=== PATIENT | female | born 1995 | race Caucasian/White ===

== ENCOUNTER 2017-11-22 01:50 | Outpatient (CLI) | payer MEDICAID, SELFPAY ==
[2017-11-22 02:15] VITALS: BMI 25.1
--- NOTE | 2017-11-22 04:03 | OB.TRI.NOTE ---
History of Present Illness Date of Service: 11/22/17 Was patient seen by the physician?: No Reason For Visit: R/O LABOR Date of Service: 11/22/17 Gestational age: 36.2 Home Medications Medication Instructions Recorded Venlafaxine HCl [Venlafaxine HCl 75 mg PO DAILY 06/25/17 ER] Pnv 11-Iron Fum-Folic Acid-Om3 1 each PO DAILY 11/22/17 [Virt-Emmanuel Dha Softgel] Allergies No Known Allergies Allergy (Verified 06/24/17 22:56) NST - FHR Rate Baby A Baseline: 145 Variability:: Moderate Accelerations:: 15 x 15 Decelerations:: None NST Reactive:: Yes FHR Category:: Category I Uterine Activity:: irregular Impression/Plan 22yo @ 36.2 wks, False labor dc home
== END 2017-11-22 04:10 | disposition home or self-care (01) ==
LOC: WPOUT 02:01 → WP 02:02
PROVIDERS: Visit Provider Obstetrics & Gynecology
DX: O47.03 False labor before 37 completed weeks of gestation, third trimester (principal); Z3A.36 36 weeks gestation of pregnancy
CPT/HCPCS: 59025; 59050; 99218; G0378

== ENCOUNTER 2017-11-29 16:00 | Inpatient (IN) | payer MEDICAID, SELFPAY ==
[2017-11-29 15:11] VITALS: BMI 25.2
[2017-11-29] MEDS: Lactated Ringers 1,000 ML 50 ML IV ×2 (16:15→20:28)
[2017-11-29 16:33] LABS: Mean Corp Hgb Conc 31.4 g/gl (32-36); Mean Corpuscular Hgb 28.1 pg (27.0-32.0); Mean Corpuscular Volume 89.3 fL (81-99); Mean Platelet Vol. 11.9 fl (6.2-12.0); Platelet Count 168 K/mm3 (150-450); RBC Distribution Width CV 14.3 % (11.6-14.6); RBC Distribution Width SD 46.6 fl (35.1-43.9); Red Blood Count 3.92 M/mm3 (4.2-5.4); White Blood Count 12.2 K/mm3 (4.4-11.0)
[2017-11-29 16:37] LABS: ROM Internal Control Test YES-OK TO RESULT pt. (Internal QC); ROM Patient Test Negative (Negative)
[2017-11-29 16:47] LABS: Scan Indicated on CBC? Y/N NO
--- NOTE | 2017-11-29 17:52 | PCM.HP.OB ---
- Problem List (1) History of depression Status: Chronic History Date of Admission: 11/29/17 Final BHARTI: 12/18/17 Final BHARTI Source: LMP Gestational age: 37 Weeks and 2 Days History of this : Uncomplicated antepartum course. Patient is a with hx of an ectopic 01/2017 that was treated and resolved without complication. Patient reports her contractions started over last night and now are every 5 minutes apart. Patient denies vaginal bleeding or leaking of amniotic fluid. Pertinent Past Medical History: Hx of depression - takes Effexor 75mg PO daily Otherwise noncontributory Allergies No Known Allergies Allergy (Verified 11/29/17 16:36) Current Medications Acetaminophen (Tylenol) 325 - 650 mg PO Q4H PRN PRN PRN Reason: PAIN OR FEVER >100.4F Al Hydroxide/Mg Hydroxide (Mylanta Ii) 15 - 30 ml PO Q4H PRN PRN PRN Reason: INDIGESTION Citric Acid/Sodium Citrate (Bicitra) 30 ml PO UD PRN Penicillin G Potassium/Dextrose (Penicillin G Potassium) 3 mu in 50 mls @ 100 mls/hr IV Q4H TED Lactated Ringer's () 1,000 mls @ 50 mls/hr IV .Q20H [facility] Last Admin: 11/29/17 16:15 Dose: 50 mls/hr Nalbuphine HCl (Nubain) 5 - 10 mg IV Q3H PRN PRN PRN Reason: PAIN (4-10/10) Ondansetron HCl (Zofran) 4 mg IV Q8H PRN PRN PRN Reason: NAUSEA Promethazine HCl (Phenergan (Ll)) 6.25 - 12.5 mg IV Q4H PRN PRN; Protocol PRN Reason: IF NAUSEA PERSISTS Sodium Chloride () 5 - 15 ml IV UD [facility] Last Admin: 11/29/17 16:29 Dose: Not Given Smoking Status: Never smoker Alcohol: None Drug Use: none Number of Fetus(es): 1 Review of Systems Constitutional: Denies: Chills, Fever, Weight Change HEENT: Denies: Head Aches, Sinus Congestion, Sinus Drainage Cardiovascular: Denies: Chest Pain, Palpitations Respiratory: Denies: Cough, Shortness of breath at rest, Sputum production Gastrointestinal: Denies: Abdominal Pain, Nausea, Vomiting Genitourinary: Denies: Dysuria Musculoskeletal: Denies: Joint Pain, Joint Tenderness Skin: Denies: Rash, Wounds Neurological: Denies: Numbness, Tingling, Focal weakness Psychiatric: Denies: Anxiety, Depression, Homicidal Ideations, Suicidal Ideations Hematologic/ Lymphatic: Denies: Easy Bruising, Easy Bleeding Physical Exam Vitals: See nurse assessment for vital signs FHT baseline 140, moderate variability, + accels, no decels Ctx q 2-5 minutes, palpate mild to moderately strong General: Alert, Oriented x3, No apparent distress Cardiovascular: Regular rate, Regular Rhythm Lungs: Normal air movement Abdomen: Bowel Sounds Present, Gravid, Appropriate for Gestational Age Extremities:: No edema Estimated gestational size: Appropriate for gestational size Presentation: Cephalic Cervix Dilation (cm): 5 Station: -1 Effacement (%): 90 Assessment/Plan A: 22 y/o @ 37.2 weeks, Active Labor, Category I FHT P: 1) Admit patient, expectant management at this time 2) Start abx for GBS prophylaxis per protocol 3) Encourage movement, ambulation and PO fluids 4) In minimal to no cervical change by initiation of 2nd abx dose, anticipate offering AROM to patient to help augment labor Monica Anderson CNM
--- NOTE | 2017-11-29 18:04 | HP.PCM_ITS ---
- Problem List (1) History of depression Status: Chronic History Date of Admission: 11/29/17 Final BHARTI: 12/18/17 Final BHARTI Source: LMP Gestational age: 37 Weeks and 2 Days History of this : Uncomplicated antepartum course. Patient is a with hx of an ectopic 01/2017 that was treated and resolved without complication. Patient reports her contractions started over last night and now are every 5 minutes apart. Patient denies vaginal bleeding or leaking of amniotic fluid. Pertinent Past Medical History: Hx of depression - takes Effexor 75mg PO daily Otherwise noncontributory Allergies No Known Allergies Allergy (Verified 11/29/17 16:36) Current Medications Acetaminophen (Tylenol) 325 - 650 mg PO Q4H PRN PRN PRN Reason: PAIN OR FEVER >100.4F Al Hydroxide/Mg Hydroxide (Mylanta Ii) 15 - 30 ml PO Q4H PRN PRN PRN Reason: INDIGESTION Citric Acid/Sodium Citrate (Bicitra) 30 ml PO UD PRN Penicillin G Potassium/Dextrose (Penicillin G Potassium) 3 mu in 50 mls @ 100 mls/hr IV Q4H TED Lactated Ringer's () 1,000 mls @ 50 mls/hr IV .Q20H [facility] Last Admin: 11/29/17 16:15 Dose: 50 mls/hr Nalbuphine HCl (Nubain) 5 - 10 mg IV Q3H PRN PRN PRN Reason: PAIN (4-10/10) Ondansetron HCl (Zofran) 4 mg IV Q8H PRN PRN PRN Reason: NAUSEA Promethazine HCl (Phenergan (Ll)) 6.25 - 12.5 mg IV Q4H PRN PRN; Protocol PRN Reason: IF NAUSEA PERSISTS Sodium Chloride () 5 - 15 ml IV UD [facility] Last Admin: 11/29/17 16:29 Dose: Not Given Smoking Status: Never smoker Alcohol: None Drug Use: none Number of Fetus(es): 1 Review of Systems Constitutional: Denies: Chills, Fever, Weight Change HEENT: Denies: Head Aches, Sinus Congestion, Sinus Drainage Cardiovascular: Denies: Chest Pain, Palpitations Respiratory: Denies: Cough, Shortness of breath at rest, Sputum production Gastrointestinal: Denies: Abdominal Pain, Nausea, Vomiting Genitourinary: Denies: Dysuria Musculoskeletal: Denies: Joint Pain, Joint Tenderness Skin: Denies: Rash, Wounds Neurological: Denies: Numbness, Tingling, Focal weakness Psychiatric: Denies: Anxiety, Depression, Homicidal Ideations, Suicidal Ideations Hematologic/ Lymphatic: Denies: Easy Bruising, Easy Bleeding Physical Exam Vitals: See nurse assessment for vital signs FHT baseline 140, moderate variability, + accels, no decels Ctx q 2-5 minutes, palpate mild to moderately strong General: Alert, Oriented x3, No apparent distress Cardiovascular: Regular rate, Regular Rhythm Lungs: Normal air movement Abdomen: Bowel Sounds Present, Gravid, Appropriate for Gestational Age Extremities:: No edema Estimated gestational size: Appropriate for gestational size Presentation: Cephalic Cervix Dilation (cm): 5 Station: -1 Effacement (%): 90 Assessment/Plan A: 22 y/o @ 37.2 weeks, Active Labor, Category I FHT P: 1) Admit patient, expectant management at this time 2) Start abx for GBS prophylaxis per protocol 3) Encourage movement, ambulation and PO fluids 4) In minimal to no cervical change by initiation of 2nd abx dose, anticipate offering AROM to patient to help augment labor Monica Anderson CNM
[2017-11-29] MEDS: Nalbuphine 10 MG/ML Ampul IV (20:46)
[2017-11-30] MEDS: Oxytocin 30 units/NS 500 ml 30 UNITS/500 ML IV.SOLN 334 UNITS IV (00:20)
[2017-11-30] MEDS: Methylergonovine 0.2 MG/ML Ampul IM (00:23)
[2017-11-30] MEDS: Oxytocin 30 units/NS 500 ml 30 UNITS/500 ML IV.SOLN 167 UNITS IV (00:30)
--- NOTE | 2017-11-30 00:35 | PCM.OB.VAG ---
Vaginal Delivery Maternal Presentation: Active Labor Amniotic Membrane Rupture Type: Artificial Amniotic Fluid Description: Clear Final BHARTI: 12/18/17 Gestational age: 37 Weeks and 3 Days Date of Procedure: 11/30/17 Pre-Operative Diagnosis: labor Post-Operative Diagnosis: same Surgery/ Procedure Performed: Spontaneous Vaginal Delivery Type of Anesthesia: Local with 1% lidocaine - 15 cc Description of Procedure: of vigorous female infant KRISTINA over small second degree perineal laceration. Remainder of delivered w/ maternal pushing and gentle traction only. Spont. delivery of placenta intact w/ 3 vessel cord. Cervix and vagina intact. mild atony. Responded to pitocin, uterine massage and methergine x 1. Second degree laceration repaired w/ 3-0 vicryl rapide suture. Vaginal sweep completed Presentation: KRISTINA Placental Delivery Description: Spontaneous Placenta Disposition: [facility] Cord Vessel Description: 3 Vessels Cord Entanglement: None Drain: - - none Estimated Blood Loss: 500 A gender: Male (1 minute): 8 (5 minute): 9 Episiotomy Description: None Laceration: 1st degree - perineal Medications given after delivery: IV Pitocin Complications: None
[2017-11-30] MEDS: Acetaminophen 500 MG Tablet 1000 MG PO (01:14)
[2017-11-30] MEDS: Naproxen 250 MG Tablet PO ×3 (02:17→21:17)
[2017-11-30 08:30] VITALS: PULSE 102; RESP 16
[2017-11-30 08:36] VITALS: BP 122/59; PULSE 102; RESP 16; TEMP 36.4; O2SAT 96
[2017-11-30 11:41] VITALS: BP 128/64; PULSE 104; RESP 16; TEMP 36.8; O2SAT 96
[2017-11-30] MEDS: Venlafaxine XR 75 MG Capsule PO (13:43)
--- NOTE | 2017-11-30 14:47 | NURSING ---
rhogam verified by bryan
[2017-11-30 15:44] VITALS: BP 118/57; PULSE 120; RESP 18; TEMP 36.9; O2SAT 97
--- NOTE | 2017-11-30 18:42 | DCINST_ITS ---
Discharge Diet: No Restrictions Discharge Activity: Return to Normal Activity, May not drive while taking narcotic pain medications., May Shower May resume sexual activity in: 4-6 weeks Additional Activity Instructions:: Nothing in the vagina for 4-6 weeks. You may return to work/school in 6 weeks. Call your doctor if your incision/area has: Continuous Slow Oozing, Sudden Increased Bleeding, Increased Pain/ Swelling, Increased Redness, Foul Smelling Discharge Additional Instructions: If you experience any of the following, contact your healthcare provider. * Bleeding that soaks a pad every hour for 2 hours * Fever 100.4 or higher * Unrelieved incision or abdominal pain * Swelling, redness, discharge or bleeding from your incision or episiotomy site * Your incision begins to separate * Problems urinating (including inability to urinate or burning while urinating) . * Visual changes * Severe headache * Flu-like symptoms * Pain or redness in one of both of your breasts * Pain, warmth, tenderness or swelling in your legs, especially the calf area * Frequent nausea and vomiting * Symptoms of depression or anxiety If you experience any of the following, call 911 or go to the nearest Emergency Room. * Chest pain * Problems breathing * Seizure activity * Partial or complete paralysis of a body part, slurred speech, weakness or drooping of the face, or a sudden inability to walk or hold your balance Allergies/Adverse Reactions: Allergies No Known Allergies Allergy (Verified 11/29/17 16:36) Medications to take at Discharge Venlafaxine HCl [Venlafaxine HCl ER] 75 mg PO DAILY 06/25/17 Pnv 11-Iron Fum-Folic Acid-Om3 [Virt-Emmanuel Dha Softgel] 1 each PO DAILY 11/22/17 Docusate Sodium [Colace] 100 mg PO BID PRN PRN #60 cap 11/30/17 Ibuprofen [Motrin] 600 mg PO Q6H PRN #60 tab 11/30/17 The following prescriptions were given: Docusate Sodium [Colace] 100 mg PO BID PRN PRN #60 cap PRN Reason: Constipation Ibuprofen [Motrin] 600 mg PO Q6H PRN #60 tab PRN Reason: Pain Orders to be completed after discharge: Electric breast pump Location: None Selected Please Follow Up With: Anjelica Palomares MD - [phone] When: Call to make an appointment with your doctor in 6 weeks. If you had elevated Blood Pressure or 4th degree laceration you will need to be seen in 2 weeks.
[2017-11-30 19:35] VITALS: BP 128/53; PULSE 110; RESP 16; TEMP 36.7; O2SAT 97
[2017-11-30] MEDS: Senna/Docusate Sodium 1 Tablet PO (21:15)
[2017-12-01 01:00] VITALS: BP 121/52; PULSE 82; RESP 18; TEMP 36.6; O2SAT 97
[2017-12-01 08:15] VITALS: BP 115/61; PULSE 88; RESP 16; TEMP 36.5; O2SAT 98
--- NOTE | 2017-12-01 08:51 | PCM.PN.OB ---
Subjective: Doing well per patient and nursing staff. Ambulating and taking PO without difficulty. Denies any scotoma, headaches, chest pain, shortness of breath, increased vaginal bleeding or clots, or leg pain. well without difficulty. Planning for D/C home tomorrow. - Physical Exam General: Alert, Oriented x3, Cooperative Lungs: Clear to auscultation, Normal air movement, No rhonchi, No wheeze Cardiovascular: Regular rate, Regular Rhythm, No murmurs Abdomen: Bowel Sounds Present, Soft, - - Fundus firm 2 below U Extremities: No edema, - - Mirza's negative bilaterally Psych/Mental Status: Normal Affect, Appropriate Vital Signs Temp Pulse Resp BP Pulse Ox 97.7 F L 88 16 115/61 98 12/01/17 08:15 12/01/17 08:15 12/01/17 08:15 12/01/17 08:15 12/01/17 08:15 Oxygen Delivery Method Room Air Weight: 176 lb 2.389 oz Body Mass Index (BMI) 25.2 Intake and Output for Last 24 Hours 11/29/17 11/30/17 12/01/17 23:59 23:59 23:59 Intake Total 360 / 360 Output Total 1200 / 1200 600 / 600 Balance -840 / -840 -600 / -600 Laboratory Tests Past 24 Hrs 11/30/17 09:00 Screen NEGATIVE Baby's Blood Type A POSITIVE Baby's EDOUARD NEGATIVE Assessment/Plan A: PPD#2 2nd degree perineal laceration P: 1) Routine PP instructions and info given 2) Planning for D/C home tomorrow.
[2017-12-01] MEDS: Naproxen 250 MG Tablet PO ×2 (12:41→20:45)
[2017-12-01] MEDS: Venlafaxine XR 75 MG Capsule PO (12:41)
[2017-12-01 13:41] VITALS: BP 116/54; PULSE 98; RESP 49; TEMP 36.4; O2SAT 98
[2017-12-01 20:30] VITALS: BP 111/54; PULSE 95; RESP 18; TEMP 36.5; O2SAT 96
[2017-12-01 21:09] VITALS: PULSE 95; RESP 18; O2SAT 96
[2017-12-02 01:38] VITALS: BP 126/71; PULSE 92; RESP 18; TEMP 36.7; O2SAT 97
[2017-12-02] MEDS: Acetaminophen 500 MG Tablet 1000 MG PO (01:42)
[2017-12-02 09:00] VITALS: BP 128/77; PULSE 102; RESP 16; TEMP 37; O2SAT 99
--- NOTE | 2017-12-02 10:22 | PCM.PN.OB ---
Subjective: Doing well per patient and nursing staff. Ambulating and taking PO without difficulty. Voiding and passing flatus. without difficulty. Baby with jaundice, under bili lights. Denies any headache, scotoma, chest pain, shortness of breath, increased vaginal bleeding or clots, or leg pain. Pain controlled by Motrin. Planning for discharge home today. - Physical Exam General: Alert, Oriented x3, Cooperative Lungs: Clear to auscultation, Normal air movement, No rhonchi, No wheeze Cardiovascular: Regular rate, No murmurs Abdomen: Bowel Sounds Present, Soft, Non Tender, - - Fundus Firm 2 below U Extremities: No edema, - - Mirza's negative bilaterally Psych/Mental Status: Normal Affect, Appropriate Vital Signs Temp Pulse Resp BP Pulse Ox 98.6 F 102 H 16 128/77 H 99 12/02/17 09:00 12/02/17 09:00 12/02/17 09:00 12/02/17 09:00 12/02/17 09:00 Oxygen Delivery Method Room Air Weight: 176 lb 2.389 oz Body Mass Index (BMI) 25.2 Intake and Output for Last 24 Hours 11/30/17 12/01/17 12/02/17 23:59 23:59 23:59 Output Total 600 / 600 Balance -600 / -600 Assessment/Plan A: PPD #2 P: 1) Discharge and instructions given. 2) Planning D/C home today
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
[2017-12-02] MEDS: Venlafaxine XR 75 MG Capsule PO (13:45)
[2017-12-02] MEDS: Naproxen 250 MG Tablet PO (13:45)
[2017-12-02 13:49] VITALS: BP 129/79; PULSE 94; RESP 16; TEMP 36.4; O2SAT 100
--- NOTE | 2017-12-02 14:18 | NURSING ---
1400 Mom nursing well and has her insurance pump with her but is not working correctly. Ariana called but not in today so left msg. Mom given a hand pump to help with accelerating her milk supply. Guillermo ARTEAGA
[2017-12-02] MEDS: Senna/Docusate Sodium 1 Tablet PO (15:21)
--- NOTE | 2017-12-05 11:08 | CASEMGMT ---
Social Work Note - Labor and Delivery Unit Referral sent to [facility] today via the [facility]'s secure online web based referral system. -LEIDA Yip, HABITAT MANAGEMENT COORDINATOR
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
== END 2017-12-02 17:50 | disposition home or self-care (01) | DRG 373 ==
LOC: WP 16:00 → WPOUT 16:00
PROVIDERS: Advanced Practice Midwife; Admitting Provider Obstetrics & Gynecology; Visit Provider Obstetrics & Gynecology
DX: O99.344 Other mental disorders complicating childbirth (principal); F32.9 Major depressive disorder, single episode, unspecified; O70.1 Second degree perineal laceration during delivery; O75.89 Other specified complications of labor and delivery; Z79.899 Other long term (current) drug therapy; Z3A.37 37 weeks gestation of pregnancy; Z37.0 Single live birth
CPT/HCPCS: 84112; 85027; 85461; 86850; 86900; 90384; 99218; J7120; G0378; J2790

== ENCOUNTER 2018-04-15 18:40 | Emergency (ER) | payer MEDICAID, SELFPAY ==
[2018-04-15 18:40] VITALS: BP 122/73; PULSE 90; RESP 16; TEMP 36.8; O2SAT 98; BMI 19.6
--- NOTE | 2018-04-15 19:15 | RAD_ITS ---
STUDY: X-RAY - LEFT FOOT CLINICAL: Female, 22 years old. Trauma. Pain. TECHNIQUE: 3 view(s) of the foot. COMPARISON: None. FINDINGS: Normal talus, calcaneus, and tarsal bones. Normal visualized subtalar, talonavicular, calcaneocuboid, tarsal and tarsometatarsal articulations. Normal metatarsi. Normal metatarsophalangeal joint of the great toe. Normal tibial and fibular sesamoid bones. Normal interphalangeal joint of the great toe. Normal phalanges of the great toe. Normal second through fifth metatarsophalangeal joints. Normal interphalangeal joints and phalanges of the lesser toes. The soft tissue structures are unremarkable. There is no demonstrated fracture. RAD/Foot min 3 Views IMPRESSION: Normal x-ray examination of the foot. Electronically Signed: Je Garcia MD at 19:43 EDT , Service support ,
--- NOTE | 2018-04-15 19:27 | RAD_ITS ---
STUDY: X-RAY - LEFT ANKLE REASON FOR EXAM: Female, 22 years old. Trauma. Pain. TECHNIQUE: 3 view(s) of the ankle. COMPARISON: None. FINDINGS: Normal visualized distal tibia and fibula. Normal medial and lateral malleoli. Normal tibiotalar articulation and ankle mortise. Normal visualized talus and calcaneus. The visualized subtalar, talonavicular, calcaneocuboid and tarsal articulations are normal. The soft tissue structures are unremarkable. RAD/Ankle min 3 Views IMPRESSION: Normal x-ray examination of the ankle. Electronically Signed: Je Garcia MD at 19:39 EDT , Service support ,
[2018-04-15] MEDS: Naproxen 500 MG Tablet PO (20:00)
--- NOTE | 2018-04-15 20:09 | ED.VISSUMM ---
- ER Visit Summary Date of Service: 04/15/18 Chief Complaint: Left foot and ankle pain History of Present Illness: The patient is a [address] Woodard. She reports that 2 days ago she missed a step and landed awkwardly on her left foot and ankle. She reports that she has a sharp, aching pain that is 10 out of 10 hours and 7 out of 10 currently. Is worsened by walking. She taken Tylenol without relief. She denies any numbness or weakness. No other injuries. Physical Examination: Vitals: Stable. Afebrile. Neck: No vertebral tenderness. Full ROM without difficulty. Cleared by NEXUS criteria. Back: No vertebral tenderness. General: A&O x 3. NAD. Cardiovascular exam: Regular rate and rhythm, no murmur, rub or gallop. Respiratory exam: Chest nontender. No crepitus. Clear to auscultation bilaterally. No wheezes or stridor. Abdominal exam: Soft, nontender, nondistended, normal bowel sounds. No pain in RUQ or LUQ specifically. No peritoneal signs. Extremity: Mild tenderness palpation over the lateral malleolus. No pain over the medial malleolus. No pain over the proximal fibula. She has moderate diffuse tenderness palpation over the third to fifth metatarsals. There is no soft tissue swelling or contusion.. Test Results: X-ray of her left foot and ankle is negative. Emergency Department Course and Treatment: Patient is placed in a postop shoe. She was given naproxen. Treatment Plan: Patient be discharged on naproxen. Instructed follow-up Dr. Watson in 1 week if not improving. Disposition: To home in improved and stable condition. Impression: 1. Left ankle sprain. 2. Left foot sprain. This note was generated with [employer] dictation software. It may contain incorrect words, spelling, and punctuation that were not noted in review of the chart prior to signing ED Disposition - Plan for ED Patient: Disposition: Home or Assisted Living Chief Complaint: Lower Extremity Injury Instructions: ED Sprain Ankle W X Ray, ED Sprain Foot Prescriptions: Naproxen [Naprosyn] 500 mg PO BID #14 tablet Referrals: Quinn Watson DPM [STAFF PHYSICIAN] - 1 Week if not improving
[2018-04-15 20:25] VITALS: BP 118/60; PULSE 78; RESP 18; O2SAT 98
== END 2018-04-15 20:26 | disposition home or self-care (01) ==
PROVIDERS: Emergency Provider Emergency Medicine
DX: S93.402A Sprain of unspecified ligament of left ankle, initial encounter (principal); S93.602A Unspecified sprain of left foot, initial encounter; W10.9XXA Fall (on) (from) unspecified stairs and steps, initial encounter; Y93.9 Activity, unspecified; Y92.9 Unspecified place or not applicable; Y99.9 Unspecified external cause status; Z79.899 Other long term (current) drug therapy
CPT/HCPCS: 73610; 73630; 99283

== ENCOUNTER 2018-05-20 13:20 | Outpatient (REF) | payer SELFPAY ==
[2018-05-20 17:20] LABS: hCG Titer Quant., Serum < 1 mIU/mL (<9 non-preg)
== END 2018-05-20 17:20 | disposition home or self-care (01) ==
LOC: EDREF 13:20
PROVIDERS: Emergency Medicine
DX: Z04.41 Encounter for examination and observation following alleged adult rape (principal)
CPT/HCPCS: 84702

== ENCOUNTER 2018-08-12 13:32 | Emergency (ER) | payer MEDICAID, SELFPAY ==
[2018-08-12] VITALS (10 sets, daily range): BP systolic 97–136; BP diastolic 53–85; PULSE 86–125; RESP 12–20; TEMP 36.6; O2SAT 95–99; BMI 18.1
[2018-08-12 14:21] LABS: Amphetamine Urine VISTA NEGATIVE (<1000 ng/mL); Barbiturate Urine VISTA NEGATIVE (< 200 ng/mL); Benzodiazepine Urine VISTA NEGATIVE (< 200 ng/mL); Cocaine Urine VISTA NEGATIVE (< 300 ng/mL); Ecstacy Urine VISTA NEGATIVE (< 500 ng/mL); Methadone Urine VISTA NEGATIVE (< 300 ng/mL); PCP Urine VISTA NEGATIVE (< 25 ng/mL); THC Urine VISTA POSITIVE (< 50 ng/mL); Vista UDS pH Range 6
[2018-08-12 14:26] LABS: Absolute Lymphocyte Count 3.19 X10^3/ul (0.83-4.51); Absolute Neutrophil Count 5.8 X10^3/uL (2.0-7.7); Basophil# 0.03 X10^3/uL; Basophil% 0.3 % (0-1); Eosinophil# 0.14 X10^3/uL; Eosinophils% 1.4 % (0-5); Hematocrit 44.6 % (37-47); Hemoglobin 15.4 g/dl (12.0-15.0); Lymphocyte # 3.19 X10^3/ul (4.0); Lymphocyte % 32.7 % (19-41); Mean Corp Hgb Conc 34.5 g/gl (32-36); Mean Corpuscular Hgb 31.1 pg (27.0-32.0); Mean Corpuscular Volume 90.1 fL (81-99); Mean Platelet Vol. 10.6 fl (6.2-12.0); Monocyte# 0.57 X10^3/uL; Monocyte% 5.8 % (0-10); Neutrophil # 5.79 X10^3/uL (2.7-7.7); Neutrophil % 59.3 % (47-70); Platelet Count 281 K/mm3 (150-450); RBC Distribution Width SD 42.2 fl (35.1-43.9); Red Blood Count 4.95 M/mm3 (4.2-5.4); White Blood Count 9.8 K/mm3 (4.4-11.0)
[2018-08-12 14:27] LABS: POSITIVE COUNT NO; POSITIVE DIFFERENTIAL NO; POSITIVE MORPHOLOGY NO
--- NOTE | 2018-08-12 14:32 | ED.RN ---
1415--pt continues to become more and more uncooperative and aggressive. police remain at bedside. zeina ordered. pt up at door yelling at staff. restraints brought out. not used at this time. after medication this rn and supercharger repair supervisor talked with pt. pt deesculating
[2018-08-12] MEDS: Ziprasidone IM 20 MG/ML VIAL IM (14:35)
[2018-08-12 14:37] LABS: Anion Gap 9 (5-15); BUN 5 mg/dL (7-18); BUN/Creat Ratio 8.1 RATIO (10-20); Chloride 107 mmol/L (98-107); Creatinine, Serum 0.62 mg/dL (0.55-1.02); EST Glomerular Filtration Rate 125 mL/min (>60); Est Glom Filt Rate - Afr Amer 151 mL/min (>60); Estimated Creatinine Clearance 123.23 ml/min; Glucose 94 mg/dL (74-106); Sodium Level 144 mmol/L (136-145)
[2018-08-12 14:43] LABS: Pregnancy, Serum, hCG Quali. NEGATIVE Negative (0-9 Nonpreg)
--- NOTE | 2018-08-12 14:43 | NURSING ---
PIERRE HILL, CALLED ABOUT PATIENT.
--- NOTE | 2018-08-12 15:11 | ED.DCSUM_ITS ---
- ER Visit Summary Date of Service: 08/12/18 Chief Complaint: Suicidal ideation History of Present Illness: The patient is a 22 F who does go to the counseling center and is on Effexor. She reports that she is taking this. She states that she has long-standing suicidal ideation, but it is worsened 4 days ago. She is not forthcoming about why this is the case. States that she tried to hang herself last night. She denies having taken any medications at that time. Physical Examination: Vitals: Stable. Afebrile. General: Well-nourished and well-developed. Head: Normocephalic atraumatic. Neck: No contusion, abrasion, soft tissue swelling, or tenderness to palpation. Cardiovascular: Regular rate and rhythm. No murmurs. Respiratory: No respiratory distress. Clear to auscultation bilaterally. Abdominal: Soft, nontender, nondistended, normal bowel sounds. No guarding, rebound, or peritoneal signs. Back: Nontender. Extremities: Nontender, no edema. Skin: Normal color, no rash. Neurologic: Alert and oriented ?3. Cranial nerves II through XII are intact. Normal strength and sensation. Mental status exam: Patient appears their stated age. Good posture and grooming. Good eye contact. Normal rate, volume, and latency of speech. No homicidal ideation. No auditory or visual hallucinations. Flow of thought is logical. Insight and judgment is fair. Test Results: CBC is marked for hemoglobin of 15.4. Chem-7 is more for BUN of 5. test is negative. Tox screen shows marijuana. But alcohol level is 212. Tylenol is less than 2. Aspirin is 2.0. Emergency Department Course and Treatment: Patient became aggressive and combative. She was given a dose of Geodon IM and is resting comfortably. She will require approximately 6 hours for her alcohol level to come down to a suitable level for the counseling center to speak with her. Treatment Plan: Patient will be seen by the counseling center and appropriate disposition will be made. Disposition: Pending Impression: 1. Suicidal ideation. 2. Alcohol intoxication. This note was generated with [employer] software. It may contain incorrect words, spelling, and punctuation that were not noted in review of the chart prior to signing ED Disposition - Plan for ED Patient: Chief Complaint: Suicidal Referrals: Floridalma Woodard DO [Primary Care Provider] -
[2018-08-12 15:35] LABS: Acetaminophen (Tylenol) Level < 2.0 ug/mL (10.0-30.0)
--- NOTE | 2018-08-12 15:38 | NURSING ---
LIZ, PIERRE, CALLED ABOUT PATIENT'S LAB LEVEL. SHE WILL CHECK IN LATER
--- NOTE | 2018-08-12 19:32 | ED.RN ---
CALLED [facility] TO ADVISE THEM THIS PT IS READY TO BE SEEN
[2018-08-12] MEDS: Venlafaxine XR 75 MG Capsule 225 MG PO (20:57)
[2018-08-13] VITALS (12 sets, daily range): BP systolic 115–124; BP diastolic 65–76; PULSE 78–99; RESP 12–16; TEMP 36.2; O2SAT 96–97
[2018-08-13 01:55] LABS: Color, Urine Yellow (Yellow); Glucose, Dipstick Normal (Normal); Ketone-Dipstick Negative (Negative); Leukocyte Esterase-Dipstick Negative /ul (Negative); Nitrite-Dipstick Negative (Negative); Occult Blood-Urine Negative /ul (Negative); Protein-Dipstick Negative (Negative); Specific Gravity, Urine 1.005 (1.002-1.030); Urine Bilirubin Dipstick Negative (Negative); Urine Clarity Clear (Clear); Urine Urobilinogen Normal (Normal); Urine pH 6.5 (5.0 - 8.0)
[2018-08-13 02:03] LABS: Bacteria 0 SEEN /hpf (None Seen); Mucous, Urine 0 SEEN /hpf (<or=2+); Red Blood Cells-Urine 0 SEEN /hpf (0-5); Squamous Epithelial Cells - UA 0-5 SEEN /hpf (5-10); White Blood Cells 0 SEEN /hpf (0-5)
--- NOTE | 2018-08-13 08:09 | ED.RN ---
CALLED [facility] FOR AN UPDATE. THE ANSWERING SERVICE WAS GOING TO GIVE THEM A MESSAGE THAT WE WANT TO HERE FROM THEM.
--- NOTE | 2018-08-13 11:23 | ED.RN ---
LOULOU CALLED FROM THE [facility]. SHE IS CHECKING ON PLACEMENT FOR YULIA. WILL LET US KNOW SOON SHE HEARS SOMETHING
[2018-08-13] MEDS: Venlafaxine XR 75 MG Capsule 225 MG PO (11:58)
== END 2018-08-13 18:52 ==
LOC: ED 14:05
PROVIDERS: Emergency Medicine; Emergency Provider Emergency Medicine
DX: R45.851 Suicidal ideations (principal); F10.129 Alcohol abuse with intoxication, unspecified; Y90.7 Blood alcohol level of 200-239 mg/100 ml; F32.9 Major depressive disorder, single episode, unspecified; Z72.0 Tobacco use; Z79.899 Other long term (current) drug therapy
CPT/HCPCS: 36415; 80048; 80307; 80320; 80329; 81001; 84703; 85025; 96372; 99285; G0480; J3486

== ENCOUNTER → 2019-02-19 15:09 | Outpatient (CLI) | payer MEDICAID, SELFPAY ==
[2018-08-12 13:33] VITALS: BMI 18.1
[2019-02-19 17:02] LABS: Absolute Neutrophil Count 3.5 X10^3/uL (2.0-7.7); Basophil# 0.02 X10^3/uL; Basophil% 0.3 % (0-1); Eosinophil# 0.25 X10^3/uL; Eosinophils% 3.4 % (0-5); Hematocrit 40.2 % (37-47); Hemoglobin 13.6 g/dl (12.0-15.0); Mean Corp Hgb Conc 33.8 g/gl (32-36); Mean Corpuscular Hgb 31.3 pg (27.0-32.0); Mean Corpuscular Volume 92.4 fL (81-99); Mean Platelet Vol. 11.8 fl (6.2-12.0); Monocyte% 6.7 % (0-10); Neutrophil # 3.46 X10^3/uL (2.7-7.7); Neutrophil % 46.5 % (47-70); Platelet Count 212 K/mm3 (150-450); RBC Distribution Width CV 12.9 % (11.6-14.6); RBC Distribution Width SD 42.1 fl (35.1-43.9); Red Blood Count 4.35 M/mm3 (4.2-5.4); White Blood Count 7.4 K/mm3 (4.4-11.0)
[2019-02-19 17:12] LABS: POSITIVE COUNT NO; POSITIVE DIFFERENTIAL NO; POSITIVE MORPHOLOGY NO
[2019-02-19 17:46] LABS: ALB/GLOB Ratio 1.2 RATIO (0.9-2.4); AST(SGOT) 15 U/L (15-37); Alanine Aminotransfer ALT/SGPT 17 U/L (13-56); Albumin, Serum 4.4 g/dL (3.2-5.0); Alkaline Phosphatase 68 U/L (45-117); Anion Gap 7 (5-15); BUN 11 mg/dL (7-18); BUN/Creat Ratio 15.5 RATIO (10-20); Calcium,Total 9.3 mg/dL (8.5-10.1); Chloride 107 mmol/L (98-107); Creatinine, Serum 0.71 mg/dL (0.55-1.02); EST Glomerular Filtration Rate 106 mL/min (>60); Est Glom Filt Rate - Afr Amer 129 mL/min (>60); Globulin 3.7 g/dL (2.2-4.2); Glucose 75 mg/dL (74-106); Potassium 3.7 mmol/L (3.5-5.1); Protein, Total 8.1 g/dL (6.4-8.2); Sodium Level 143 mmol/L (136-145); Thyroid Stim Hormone (TSH) 1.52 uIU/mL (0.358-3.74)
== END ==
PROVIDERS: Referring Provider Nurse Practitioner Family; Visit Provider Nurse Practitioner Family
DX: R00.2 Palpitations (principal)
CPT/HCPCS: 36415; 80053; 84443; 85025

== ENCOUNTER 2019-04-24 00:55 | Emergency (ER) | payer MEDICAID, SELFPAY ==
[2019-04-24 00:56] VITALS: BP 135/83; PULSE 80; RESP 16; TEMP 36.6; O2SAT 100; BMI 18.1
--- NOTE | 2019-04-24 01:15 | ED.DCSUM_ITS ---
- ER Visit Summary Date of Service: 04/24/19 Chief Complaint: Oral pain History of Present Illness: The patient is a 23 F who had all 4 of her third molars extracted last week. She developed increased pain. She saw her dentist and was diagnosed with dry socket. She is currently taking ibuprofen and clind amycin. Pain is uncontrolled. No fevers. No vomiting. Physical Examination: Afebrile vitals normal Postsurgical changes at the sites of the dental extractions in all 4 of the third molars there is no clot visualized in the right mandibular third molar socket no focal abscess No trismus, clear speech Heart regular rate No respiratory distress Test Results: Not indicated Emergency Department Course and Treatment: Dry socket paste was applied to the right mandibular third molar socket. She was given a prescription for [place]. She was advised to follow-up with her dentist was discharged home. Treatment Plan: [] Disposition: Discharge Impression: Dry socket This note was generated with [employer] dictation software. It may contain incorrect words, spelling, and punctuation that were not noted in review of the chart prior to signing ED Disposition - Plan for ED Patient: Referrals: Floridalma Woodard DO [Primary Care Provider] -
--- NOTE | 2019-04-24 01:17 | DCINST.ED_ITS ---
ED Disposition - Plan for ED Patient: Instructions: Dry Socket Prescriptions: Hydrocodone Bitart/Apap 5-325 [[place] 5MG-325MG] 1 tab PO Q6H PRN PRN 3 Days #10 tab PRN Reason: Pain Prescription Printed Referrals: Floridalma Woodard DO [Primary Care Provider] -
== END 2019-04-24 01:33 | disposition home or self-care (01) ==
LOC: ED 01:28
PROVIDERS: Emergency Provider Emergency Medicine
DX: M27.3 Alveolitis of jaws (principal); F32.9 Major depressive disorder, single episode, unspecified; F41.9 Anxiety disorder, unspecified; Z72.0 Tobacco use; Z79.899 Other long term (current) drug therapy
CPT/HCPCS: 99282

== ENCOUNTER 2019-09-11 15:08 | Emergency (ER) | payer MEDICAID, SELFPAY ==
[2019-09-11 15:09] VITALS: BP 113/77; PULSE 85; RESP 16; TEMP 36.2; O2SAT 100; BMI 17.4
--- NOTE | 2019-09-11 15:22 | ED.VIS.GEN ---
History of Present Illness Chief Complaint: Abd Pain Detail of Chief Complaint: Right lower quadrant with nausea and loss of appetite Informant: Patient Onset: Today Context: Sudden Onset Timing: Continuous Quality: Pain/discomfort Location: Proximity McBurney's point Current Severity: Mild Maximum Severity: Moderate Worsened by: Nothing per patient Relieved by: Nothing per patient Associated Symptoms: Nausea and loss of appetite and frequency Narrative: Patient is a 23-year-old woman who presents with right lower quadrant pain that started approximately 0600. She did have an omelette for breakfast this morning. She states since the pain started she has been nauseous. The pain has increased. There is a slight waxing and waning. She states she had frequency and a couple of days ago. She denies dysuria, hematuria or urgency. She does not have menstrual cycles. She denies fever, chills or night sweats. She states she was diagnosed with walking pneumonia at the urgent care day before . No imaging was performed. There is a remote history of ovarian cyst. She did contact her OB and states based on location this is not an ovarian cyst. It was recommended she come to the emergency department for evaluation. Prior similar symptoms: No Recent Illness/Hospitalization: No - Past Medical History (1) History of depression Status: Chronic Past Medical History - Allergies and Home Meds Allergies/Adverse Reactions: Allergies No Known Allergies Allergy (Verified 09/11/19 15:08) Primary Care Physician: Floridalma Woodard DO [Primary Care Provider] - 1 Day for another exam Surgical History: no surgical history, noncontributory Lives: With Family Smoking Status: Current every day smoker Alcohol: None Drugs: None - Family History Maternal Family History: Reports: No pertinent history Paternal Family History: Reports: No pertinent history Review of Systems General: Reports: Malaise. Denies: Chills, Fever, Subjective, Sweats Eyes: Denies: Visual changes - bilaterally, Blurred Vision - bilaterally ENT: Denies: Rhinorrhea, Sore throat Cardiovascular: Denies: Chest pain, Palpitations Respiratory: Denies: Dyspnea, Cough, Sputum, Dyspnea on exertion Gastrointestinal: Reports: Abdominal pain, Nausea. Denies: Vomiting, Diarrhea, Constipation, Melena, Hematochezia Genitourinary: Reports: Frequency. Denies: Dysuria, Hematuria Musculoskeletal: Denies: Myalgias, Arthralgias, Neck pain, Back pain, Swelling, Extremity Pain Skin: Denies: Rash, Wounds Neurological: Denies: Headache, Weakness, Numbness Endocrine: Denies: Polyuria, Polydipsia Hematologic: Denies: Easy bruising, Easy bleeding Physical Exam Vital Signs/Narrative: Vital Signs Temp Pulse Resp BP Pulse Ox 09/11/19 15:09 97.1 F L 85 16 113/77 100 Inital Vital Signs reviewed: Yes General: Well nourished, Well developed, No Acute Distress Head: Normocephalic, Atraumatic Eyes: Perrl, EOMI ENT: Moist mucous membranes, No rhinorrhea Neck: Supple, Nontender Cardiovascular: Regular rate, Regular rhythm, No murmurs Respiratory: No distress, CTA bilaterally, Chest nontender Abdomen: Soft, Nondistended, Normal bowel sounds, Tender - There is tenderness in the proximity McBurney's point. She does grimace to deep palpation., Guarding. Negative for: Hepatomegaly, Splenomegaly, Mass, Pulsatile mass, Ventral hernia Back: Nontender, Normal Inspection Extremities: Nontender, No edema Skin: Normal color, No rash Neurological: Alert, Oriented x3, Cranial nerves II-XII grossly intact, Normal Strength, Normal Sensation, Normal Gait Psychological: Depressed Diagnostic/Tx/Re-eval Impressions Abdomen/Pelvis CT 09/11/19 16:49 IMPRESSION: No acute intra-abdominal process is identified. Appendix is not definitively visualized. There is no gross evidence of acute appendicitis seen. Cystic right adnexa may be physiologic and can be better assessed with a dedicated pelvic sonogram as clinically indicated. Electronically Signed: Milan Conn, at 17:32 EST Tel , Service support , 09/11/19 16:49 Abdomen/Pelvis W IV Cont ONLY [CT] Stat Laboratory Results 09/11/19 09/11/19 09/11/19 15:30 15:30 15:30 WBC 10.2 RBC 3.98 L Hgb 12.5 Hct 37.1 MCV 93.2 MCH 31.4 MCHC 33.7 RDW Std Deviation 39.4 RDW Coeff of Guero 11.6 Plt Count 293 MPV 10.6 Immature Gran % (Auto) 0.300 Neut % (Auto) 53.0 Lymph % (Auto) 38.1 Billings % (Auto) 5.5 Eos % (Auto) 2.5 Baso % (Auto) 0.6 Absolute Neuts (auto) 5.4 Absolute Lymphs (auto) 3.87 Nucleated RBC % 0 Sodium 140 Potassium 3.4 L Chloride 105 Carbon Dioxide 29.0 Anion Gap 6 BUN 9 Creatinine 0.61 Estim Creat Clear Calc 126.19 Est GFR (MDRD) Af Amer 152 Est GFR (MDRD) Non-Af 125 BUN/Creatinine Ratio 14.7 Glucose 93 Calcium 9.2 Serum , Qual NEGATIVE Urine Color Urine Clarity Urine pH Ur Specific Pierron Urine Protein Urine Glucose (UA) Urine Ketones Urine Occult Blood Urine Nitrite Urine Bilirubin Urine Urobilinogen Ur Leukocyte Esterase Urine RBC Urine WBC Ur Squamous Epith Cells Urine Bacteria Urine Mucus 09/11/19 15:40 WBC RBC Hgb Hct MCV MCH MCHC RDW Std Deviation RDW Coeff of Guero Plt Count MPV Immature Gran % (Auto) Neut % (Auto) Lymph % (Auto) Billings % (Auto) Eos % (Auto) Baso % (Auto) Absolute Neuts (auto) Absolute Lymphs (auto) Nucleated RBC % Sodium Potassium Chloride Carbon Dioxide Anion Gap BUN Creatinine Estim Creat Clear Calc Est GFR (MDRD) Af Amer Est GFR (MDRD) Non-Af BUN/Creatinine Ratio Glucose Calcium Serum , Qual Urine Color Yellow Urine Clarity Sl. Cloudy Urine pH 7.0 Ur Specific Pierron 1.015 Urine Protein Negative Urine Glucose (UA) Normal Urine Ketones Negative Urine Occult Blood Negative Urine Nitrite Negative Urine Bilirubin Negative Urine Urobilinogen Normal Ur Leukocyte Esterase Negative Urine RBC 0-5 SEEN Urine WBC 0 SEEN Ur Squamous Epith Cells 0-5 SEEN Urine Bacteria 1+ Urine Mucus 1+ Next was not specifically visualized however there is no inflammatory changes. White count is normal. - Medical Decision Making Differential diagnosis includes appendicitis, mesenteric adenitis, ureteral biases, urinary tract infection to evaluate her symptoms and findings CBC, basic metabolic panel, test and UA were obtained. She did receive 4 mg of Zofran for her nausea. ED Disposition - Plan for ED Patient: Diagnosis: Right lower quadrant abdominal pain, Right ovarian cyst Instructions: ABDOMINAL PAIN, Possible Appendicitis (Female), Ovarian Cyst Referrals: Floridalma Woodard DO [Primary Care Provider] - 1 Day for another exam
[2019-09-11 15:45] LABS: Absolute Lymphocyte Count 3.87 X10^3/uL (0.83-4.51); Absolute Neutrophil Count 5.4 X10^3/uL (2.0-7.7); Basophil# 0.06 X10^3/uL; Basophil% 0.6 % (0-1); Eosinophil# 0.25 X10^3/uL; Eosinophils% 2.5 % (0-5); Hematocrit 37.1 % (37-47); Hemoglobin 12.5 g/dL (12.0-15.0); Lymphocyte # 3.87 X10^3/ul (4.0); Lymphocyte % 38.1 % (19-41); Mean Corp Hgb Conc 33.7 g/dL (32-36); Mean Corpuscular Hgb 31.4 pg (27.0-32.0); Mean Corpuscular Volume 93.2 fL (81-99); Mean Platelet Vol. 10.6 fl (6.2-12.0); Monocyte# 0.56 X10^3/uL; Monocyte% 5.5 % (0-10); NRBC Flagged by Analyzer 0 % (0-5); Neutrophil # 5.39 X10^3/uL (2.7-7.7); Platelet Count 293 K/mm3 (150-450); RBC Distribution Width CV 11.6 % (11.6-14.6); RBC Distribution Width SD 39.4 fl (35.1-43.9); Red Blood Count 3.98 M/mm3 (4.2-5.4); White Blood Count 10.2 K/mm3 (4.4-11.0)
[2019-09-11 15:50] LABS: White Blood Cells 0 SEEN /hpf (0-5)
[2019-09-11 15:56] LABS: Internal QC Validated? YES +Cl - CLEAR BKGD; Pregnancy, Serum, hCG Quali. NEGATIVE Negative
[2019-09-11 15:59] LABS: Anion Gap 6 (5-15); BUN 9 mg/dL (7-18); BUN/Creat Ratio 14.7 RATIO (10-20); Calcium,Total 9.2 mg/dL (8.5-10.1); Chloride 105 mmol/L (98-107); Creatinine, Serum 0.61 mg/dL (0.55-1.02); EST Glomerular Filtration Rate 125 mL/min (>60); Est Glom Filt Rate - Afr Amer 152 mL/min (>60); Estimated Creatinine Clearance 126.19 ml/min; Glucose 93 mg/dL (74-106); Potassium 3.4 mmol/L (3.5-5.1); Sodium Level 140 mmol/L (136-145)
[2019-09-11 16:11] LABS: Color, Urine Yellow (Yellow); Glucose, Dipstick Normal (Normal); Ketone-Dipstick Negative (Negative); Leukocyte Esterase-Dipstick Negative /ul (Negative); Nitrite-Dipstick Negative (Negative); Occult Blood-Urine Negative /ul (Negative); Protein-Dipstick Negative (Negative); Specific Gravity, Urine 1.015 (1.002-1.030); Urine Bilirubin Dipstick Negative (Negative); Urine Clarity Sl. Cloudy (Clear); Urine Urobilinogen Normal (Normal)
[2019-09-11 16:15] LABS: Bacteria 1+ /hpf (None Seen); Mucous, Urine 1+ /hpf (<or=2+); Red Blood Cells-Urine 0-5 SEEN /hpf (0-5); Squamous Epithelial Cells - UA 0-5 SEEN /hpf (5-10)
[2019-09-11] MEDS: Ondansetron 4 MG/2 ML Vial IV (16:17)
--- NOTE | 2019-09-11 16:49 | CT_ITS ---
STUDY: CT ABDOMEN AND PELVIS WITHOUT CONTRAST REASON FOR EXAM: Female, 23 years old. Right lower quadrant pain RADIATION DOSAGE (If Supplied By Facility): CTDIvol = ( 11.40 ) mGy, DLP = ( 304.42 ) mGycm TECHNIQUE: Transaxial images were obtained from the dome of the diaphragm to the symphysis pubis without oral contrast, and without intravenous contrast. Sagittal and coronal images were reconstructed. Individualized dose optimization techniques were used for this CT. COMPARISON: None. FINDINGS: The visualized lung bases are unremarkable. The visualized portions of the heart are within normal limits. Normal liver. The gallbladder is contracted. Normal spleen. Normal pancreas. Normal bilateral adrenal glands. Normal right kidney. Normal left kidney. Normal visualized stomach. Normal small intestine. Normal colon. Prominent stool burden. There is non-visualization of the appendix. Normal abdominal aorta. Normal inferior vena cava. Normal retroperitoneum. Normal urinary bladder. Normal visualized uterus. IUD in place. Cystic right adnexa There is a small umbilical hernia containing fat. Normal osseous structures. CT/Abdomen/Pelvis W IV Cont ONLY IMPRESSION: No acute intra-abdominal process is identified. Appendix is not definitively visualized. There is no gross evidence of acute appendicitis seen. Cystic right adnexa may be physiologic and can be better assessed with a dedicated pelvic sonogram as clinically indicated. Electronically Signed: Milan Conn, at 17:32 EST Tel , Service support ,
[2019-09-11] MEDS: Morphine 4 MG/ML Syringe IV (17:54)
[2019-09-11 18:42] VITALS: BP 111/75; PULSE 74; RESP 16; O2SAT 100
[2019-09-11 19:24] VITALS: BP 111/82; PULSE 61; O2SAT 98
== END 2019-09-11 19:30 | disposition home or self-care (01) ==
LOC: ED 15:43
PROVIDERS: Emergency Provider Emergency Medicine
DX: R10.31 Right lower quadrant pain (principal); N83.201 Unspecified ovarian cyst, right side; F32.9 Major depressive disorder, single episode, unspecified; F17.200 Nicotine dependence, unspecified, uncomplicated; Z79.899 Other long term (current) drug therapy
CPT/HCPCS: 74177; 80048; 81001; 84703; 85025; 96374; 96375; 99283; Q9967; A4216; J2405

== ENCOUNTER → 2020-12-23 11:04 | Outpatient (CLI) | payer MEDICAID, SELFPAY ==
--- NOTE | 2020-12-23 11:07 | VDLE_ITS ---
Reason For Study: Edema RIGHT LEFT GSV is normal. GSV is normal. CFV is compressible, spontaneous, phasic, CFV is compressible, spontaneous, phasic, competent and demonstrates normal competent, and demonstrates normal augmentation. augmentation. FV is compressible, spontaneous, phasic, FV is compressible, spontaneous, phasic, competent and demonstrates normal competent and demonstrates normal augmentation. augmentation. POP V is compressible, spontaneous, phasic, POP V is compressible, spontaneous, phasic, competent and demonstrates normal competent and demonstrates normal augmentation. augmentation. T/P Trunk is compressible. T/P Trunk is compressible. PTV is compressible. PTV is compressible. RT PerV is compressible. LT PerV is compressible. Procedure Exam performed in department. A preliminary report was called and/or faxed to January. Interpretation Summary No evidence for acute deep venous thrombosis bilateral lower extremities with patent and compressible bilateral great saphenous veins. Ordering Physician: Jack Hawley Referring Physician: Floridalma Woodard Performed By: Princess Mcdonald, DASH, RVT
--- NOTE | 2020-12-23 11:07 | VDUE_ITS ---
Reason For Study: Swelling Right Proximal Left Proximal Right jugular vein is spontaneous, widely Left jugular vein is spontaneous, widely patent, phasic, with no intraluminal patent, phasic, with no intraluminal echogenicity noted. echogenicity noted. Right subclavian vein is spontaneous, widely Left subclavian vein is spontaneous, widely patent, phasic, with no intraluminal patent, phasic, with no intraluminal echogenicity noted. echogenicity noted. Right Lower Arm Left Arm Right radial vein is compressible. Left axillary vein is spontaneous, patent, Right ulnar vein is compressible. phasic, competent, compressible and Right Arm demonstrates augmentation. Right axillary vein is spontaneous, patent, Left brachial vein is compressible. phasic, competent, compressible and Left cephalic vein is compressible. demonstrates augmentation. Lt BasilicV in the forearm is non Right brachial vein is compressible. compressible and dilated consistent with Right cephalic vein is compressible. acute SVT. Rt BasilicV in the forearm is non Left Lower Arm compressible and dilated consistent with Left radial vein is compressible. acute SVT. Left ulnar vein is compressible. Patient Safety Prelim given to Angie/Dr. Hawley. Interpretation Summary No evidence for acute deep venous thrombosis bilateral upper extremities Superficial thrombophlebitis bilateral forearm basilic veins Ordering Physician: Jack Hawley Referring Physician: Floridalma Woodard Performed By: Princess Mcdonald, DASH, RVT ?
== END ==
PROVIDERS: Referring Provider Student in an Organized Health Care Education/Training Program; Visit Provider Student in an Organized Health Care Education/Training Program
DX: R60.9 Edema, unspecified (principal); M79.89 Other specified soft tissue disorders
CPT/HCPCS: 93970

== ENCOUNTER 2020-12-30 16:07 | Inpatient (IN) | payer MEDICAID, SELFPAY ==
[2020-12-30 16:09] VITALS: BP 128/65; PULSE 103; RESP 14; TEMP 35.7; O2SAT 97; BMI 27.0
--- NOTE | 2020-12-30 16:40 | ED.VIS.GEN ---
History of Present Illness Chief Complaint: Substance Abuse Informant: Patient Onset: Month(s) - Patient has been injecting heroin/fentanyl for 6 months Context: Sudden Onset Timing: Continuous Quality: IV drug use for the past 6 months because boyfriend uses Location: Upper and lower extremity Current Severity: Moderate Maximum Severity: Moderate Worsened by: Social group Relieved by: Nothing Associated Symptoms: Presently no symptoms Narrative: This 25-year-old female who presents with history of opiate IV drug use for the past 6 months. She states her drug of choice is heroin. She has used fentanyl as well. She has not been tested for hepatitis or HIV. She last used yesterday. She does use daily. She may inject more than once a day. She is on antibiotic. Based on description suspect levofloxacin because of infection lower extremity. She states the swelling/pain and redness has improved significantly. She denies fever, chills night sweats. She denies cardiac respiratory symptoms. She has mild abdominal discomfort with no nausea, vomiting diarrhea. Prior similar symptoms: No Recent Illness/Hospitalization: No - Past Medical History (1) Opiate IV drug use Status: Acute (2) History of depression Status: Chronic Past Medical History - Allergies and Home Meds Allergies/Adverse Reactions: Allergies No Known Allergies Allergy (Verified 12/30/20 16:08) Primary Care Physician: Floridalma Woodard DO [Primary Care Provider] - Surgical History: no surgical history, noncontributory Lives: Spouse/ Significant Other Smoking Status: Current every day smoker Alcohol: Rare Drugs: Heroin - Family History Maternal Family History: Reports: No pertinent history Paternal Family History: Reports: No pertinent history Review of Systems General: Denies: Chills, Fever, Malaise, Sweats Eyes: Denies: Visual changes - bilaterally, Blurred Vision - bilaterally ENT: Denies: Bilateral ear pain, Rhinorrhea, Sore throat Cardiovascular: Denies: Chest pain, Palpitations Respiratory: Denies: Dyspnea, Cough, Dyspnea on exertion Gastrointestinal: Reports: Abdominal pain. Denies: Nausea, Vomiting, Diarrhea Genitourinary: Denies: Dysuria, Hematuria Musculoskeletal: Denies: Myalgias, Arthralgias, Neck pain, Back pain, Swelling, Extremity Pain Skin: Reports: Wounds - Due to IV drug use. Denies: Rash Neurological: Denies: Headache, Weakness Psych: Reports: Depression Endocrine: Denies: Polyuria, Polydipsia Hematologic: Denies: Easy bruising Physical Exam Vital Signs/Narrative: Vital Signs Temp Pulse Resp BP Pulse Ox 12/30/20 16:09 96.2 F L 103 H 14 128/65 H 97 Inital Vital Signs reviewed: Yes General: Well nourished, Well developed, No Acute Distress Head: Normocephalic, Atraumatic Eyes: Perrl, EOMI. Negative for: Pale conjunctiva, Scleral icterus ENT: Moist mucous membranes, No rhinorrhea Neck: Supple, Nontender, No lymphadenopathy, No JVD Cardiovascular: Regular rhythm, No murmurs, Normal S1, Normal S2, Tachycardia Respiratory: No distress, CTA bilaterally Abdomen: Soft, Nontender, Nondistended, Normal bowel sounds, No masses Rectal: Deferred Back: Nontender, Normal Inspection Extremities: - - Track cazares noted. No evidence infection. Patient does have cords noted where she is injected.. Negative for: Nontender Skin: Normal color, No rash. Negative for: Cyanosis, Diaphoresis, Jaundice Neurological: Alert, Oriented x3, Cranial nerves II-XII grossly intact, Normal Strength, Normal Sensation, Normal DTR - DTR 2+ biceps, brachialis, triceps, patella and ankle. Reflexes are symmetric. Psychological: Depressed Diagnostic/Tx/Re-eval Laboratory Results 12/30/20 16:45 Ur Drug Screen Comment Abs are still pain at time of admission. Lastly followed by hospitalist who is admitting the patient for opiate addiction. - Medical Decision Making An order set was initiated. ED Disposition - Plan for ED Patient: Disposition: Acute [facility] Diagnosis: Opiate addiction Referrals: Floridalma Woodard DO [Primary Care Provider] -
--- NOTE | 2020-12-30 17:26 | NURSING ---
DR REDD WHITE
[2020-12-30 17:35] LABS: Alcohol, Blood (Medical)-Serum < 3.0 mg/dL
[2020-12-30 17:38] LABS: ALB/GLOB Ratio 0.7 RATIO (0.9-2.4); AST(SGOT) 16 U/L (15-37); Alanine Aminotransfer ALT/SGPT 19 U/L (13-56); Albumin, Serum 3.7 g/dL (3.2-5.0); Alkaline Phosphatase 137 U/L (45-117); Amphetamine Urine VISTA NEGATIVE (<1000 ng/mL); Anion Gap 8 (5-15); BUN 5 mg/dL (7-18); BUN/Creat Ratio 7.9 RATIO (10-20); Barbiturate Urine VISTA NEGATIVE (< 200 ng/mL); Benzodiazepine Urine VISTA NEGATIVE (< 200 ng/mL); Calcium,Total 9.6 mg/dL (8.5-10.1); Chloride 107 mmol/L (98-107); Cocaine Urine VISTA NEGATIVE (< 300 ng/mL); Creatinine, Serum 0.64 mg/dL (0.55-1.02); EST Glomerular Filtration Rate 119 mL/min (>60); Ecstacy Urine VISTA NEGATIVE (< 500 ng/mL); Est Glom Filt Rate - Afr Amer 144 mL/min (>60); Estimated Creatinine Clearance 137.99 ml/min; Glucose 113 mg/dL (74-106); Methadone Urine VISTA NEGATIVE (< 300 ng/mL); PCP Urine VISTA NEGATIVE (< 25 ng/mL); Potassium 3.6 mmol/L (3.5-5.1); Protein, Total 8.7 g/dL (6.4-8.2); Sodium Level 138 mmol/L (136-145); THC Urine VISTA POSITIVE (< 50 ng/mL); Vista UDS pH Range 7
[2020-12-30 17:40] VITALS: BMI 27.0
--- NOTE | 2020-12-30 17:41 | PCM.HP.STD ---
Problem List (1) Acute opioid intoxication delirium with moderate or severe use disorder Status: Acute (2) Polysubstance (including opioids) dependence, daily use Status: Chronic (3) Nicotine use Status: Chronic (4) History of depression Status: Chronic (5) Bleeding Status: Chronic Comment: Vaginal after elective ab History of Present Illness Date of Admission: 12/30/20 Chief Complaint: Opioid use and dependence The patient is a 25 year old F with history of polysubstance use including opioids came to ER for treatment for medical stabilization of acute opioid withdrawal. Patient has been using IV heroin and fentanyl for about 6 months. She uses about 1.5 to 2 g IV daily. She has mild body aches and pain, restlessness otherwise denies nausea, vomiting, tremor, hallucination, seizure or delusion. She has history of depression and history of 3 suicidal attempts in the past. First 1 at age of 12, second at 14 and [age] years of age all by hanging attempt. Patient is on was put on venlafaxine at home. Patient father has history of chronic alcohol use and dependence. [] Available labs in ER shows BUN 5, elevated alkaline phosphatase, albumin 3.7. U tox positive of opioids and cannabinoids. Serum alcohol less than 3. Labs are pending. Patient was tested negative for hepatitis C and B about a year ago. Past Medical History Past Medical History (Chronic Problems): Chronic Problems History of depression (Chronic) Polysubstance (including opioids) dependence, daily use (Chronic) Nicotine use (Chronic) Bleeding (Chronic) Vaginal after elective ab Allergies No Known Allergies Allergy (Verified 12/30/20 16:08) Home Medications: Ambulatory Orders Medication Instructions Recorded Venlafaxine HCl [Venlafaxine HCl 225 mg PO DAILY 08/12/18 ER] Buspirone HCl 10 mg PO DAILY 09/11/19 Surgical History: no surgical history, noncontributory Psychiatric History: No pertinent psych hx [employer] DES[employer] History: spontaneous - x 1, elective termination x 1 Lives: Spouse/ Significant Other Smoking Status: Current every day smoker Alcohol: Rare Drugs: Heroin - *Family History Maternal History Items: - - Patient father is chronic alcoholic. History of depression Paternal History Items: No pertinent history Review of Systems Constitutional: Denies: Chills, Fever, Weight Change HEENT: Denies: Head Aches, Sinus Congestion, Sinus Drainage Cardiovascular: Denies: Chest Pain, Palpitations Respiratory: Denies: Cough, Shortness of breath at rest, Sputum production Gastrointestinal: Denies: Abdominal Pain, Nausea, Vomiting Genitourinary: Denies: Dysuria Musculoskeletal: Reports: Leg Pain, Muscle pain. Denies: Joint Pain, Joint Tenderness Skin: Denies: Rash, Wounds Neurological: Denies: Numbness, Tingling, Focal weakness Psychiatric: Reports: Anxiety, Depression. Denies: Homicidal Ideations, Suicidal Ideations Hematologic/ Lymphatic: Denies: Easy Bruising, Easy Bleeding VTE Information - Inpt Only VTE Present on Admission: No VTE Mechan Device Prophylaxis: None VTE Pharm Prophylaxis ordered?: No Reason prophylaxis not ordered:: Procedure Not Indicated Objective: General: Alert, Oriented x3, Cooperative HEENT: Atraumatic, PERRLA, EOMI, Normocephalic Oral: No Gingival or Mucosal Lesions/ Ulcerations Neck: Supple, No JVD, Negative Carotid Bruits Lungs: Air entry equal in bilateral lung bases. No crepitation/rhonchi Cardiovascular: Regular rate, Regular Rhythm, Normal S1, Normal S2, No murmurs Abdomen: Bowel Sounds Present, Soft, Non Tender, Non-Distended : No renal angle tenderness. No suprapubic tenderness. Extremities: No edema, Capillary Refill Less than 3 Seconds Skin: Mild redness and induration/hardness over injection site probably superficial thrombophlebitis over forearm antecubital region. No ulcer. Musculoskeletal: No Tenderness to Palpation of Joints or Extremities Neurological: Cranial nerves II-XII grossly intact, Deep Tendon Reflexes 2+/4 and Symmetrical, Neuro grossly intact Psych/Mental Status: Normal Affect, Appropriate. - Physical Exam Vitals/I&O's: Vital Signs Temp Pulse Resp BP Pulse Ox 96.2 F L 103 H 14 128/65 H 97 12/30/20 16:09 12/30/20 16:09 12/30/20 16:09 12/30/20 16:09 12/30/20 16:09 Oxygen Delivery Method Room Air Weight: 182 lb 15.739 oz Body Mass Index (BMI) 27.0 Laboratory Results 12/30/20 16:45: Sodium 138, Potassium 3.6, Chloride 107, Carbon Dioxide 23.0, Anion Gap 8, BUN 5 L, Creatinine 0.64, Estim Creat Clear Calc 137.99, Est GFR (MDRD) Af Amer 144, Est GFR (MDRD) Non-Af 119, BUN/Creatinine Ratio 7.9 L, Glucose 113 H, Calcium 9.6, Total Bilirubin 0.40, AST 16, ALT 19, Alkaline Phosphatase 137 H, Total Protein 8.7 H, Albumin 3.7, Globulin 5.0 H, Albumin/Globulin Ratio 0.7 L 12/30/20 16:45: Ethyl Alcohol < 3.0 12/30/20 16:45: Urine Opiates Screen POSITIVE H, Urine Methadone Screen NEGATIVE, Ur Barbiturates Screen NEGATIVE, Ur Phencyclidine Scrn NEGATIVE, Ur Amphetamines Screen NEGATIVE, U Methamphetamin-MDMA NEGATIVE, U Benzodiazepines Scrn NEGATIVE, Urine Cocaine Screen NEGATIVE, U Cannabinoids Screen POSITIVE H, Ur Drug Screen Comment Assessment/Plan All Active Problems Acute opioid intoxication delirium with moderate or severe use disorder (Acute) This 25-year-old female admitted for medical stabilization of acute opioid dependence with high risk of withdrawal syndrome. 1. Acute opioid use, dependence and tolerance with early symptoms of withdrawal syndrome: Patient is being admitted in MedSurg floor. Order set for opioid medical stabilization with buprenorphine and other supportive medications ordered. Serum test is pending. Patient has Minera as contraceptive IUD. 2. Chronic opioid use and dependence with polysubstance use of smoking and marijuana: On nicotine patch. 3. Chronic nicotine/smoking: Patient is counseled to quit smoking, opioid and cannabinoids. 4. Anxiety and depression with history of suicidal attempts in the past. We will hold patient's venlafaxine and risperidone as patient will be on multiple antianxiety/antidepressant and sedative medications including trazodone. VTE prophylaxis, low risk: No prophylaxis indicated. Early ambulation encouraged. CODE STATUS: Full code. Patient does not have living will. Inpatient E&M: 62926 Init Hosp L3
[2020-12-30 17:54] VITALS: BP 115/70; PULSE 81; RESP 14; TEMP 37; O2SAT 96
--- NOTE | 2020-12-30 17:54 | NURSING ---
[address] [facility] [place] OPIATE ADDICTION
[2020-12-30 17:55] LABS: Internal QC Validated? YES +Cl - CLEAR BKGD; Pregnancy, Serum, hCG Quali. NEGATIVE Negative
[2020-12-30 18:17] VITALS: BMI 27.1
[2020-12-30 18:20] VITALS: BP 123/69; PULSE 74; RESP 16; TEMP 36.9; O2SAT 97
[2020-12-30 18:30] LABS: Absolute Lymphocyte Count 1.84 X10^3/uL (0.83-4.51); Absolute Neutrophil Count 5.5 X10^3/uL (2.0-7.7); Basophil# 0.04 X10^3/uL; Basophil% 0.5 % (0-1); Eosinophil# 0.16 X10^3/uL; Hematocrit 41.7 % (37-47); Hemoglobin 13.8 g/dL (12.0-15.0); Lymphocyte # 1.84 X10^3/ul (4.0); Lymphocyte % 23.1 % (19-41); Mean Corp Hgb Conc 33.1 g/dL (32-36); Mean Corpuscular Hgb 29.6 pg (27.0-32.0); Mean Corpuscular Volume 89.5 fL (81-99); Mean Platelet Vol. 10.3 fl (6.2-12.0); Monocyte# 0.43 X10^3/uL; Monocyte% 5.4 % (0-10); NRBC Flagged by Analyzer 0 % (0-5); Neutrophil # 5.47 X10^3/uL (2.7-7.7); Neutrophil % 68.7 % (47-70); Platelet Count 350 K/mm3 (150-450); RBC Distribution Width CV 12.8 % (11.6-14.6); RBC Distribution Width SD 41.9 fl (35.1-43.9); Red Blood Count 4.66 M/mm3 (4.2-5.4)
[2020-12-30 18:48] LABS: International Normalized Ratio 1.2; Prothrombin Time (Protime)PT. 14.3 SECONDS (11.7-14.9)
[2020-12-30] MEDS: hydrOXYzine PAM 25 MG Capsule 50 MG PO (22:11)
[2020-12-30] MEDS: Methocarbamol 750 MG Tablet 1500 MG PO (22:11)
[2020-12-30] MEDS: Ibuprofen 600 MG Tablet PO (22:11)
[2020-12-30] MEDS: Dicyclomine 10 MG Capsule 20 MG PO (22:11)
[2020-12-30] MEDS: traZODone 100 MG Tablet PO (22:11)
[2020-12-30] MEDS: Buprenorphine HCl 2 MG TAB.SUBL SL (22:13)
[2020-12-30] MEDS: Ondansetron 8 MG Tablet PO (22:21)
[2020-12-30 22:24] VITALS: BP 105/46; PULSE 74; RESP 20; TEMP 36.7; O2SAT 100
[2020-12-31 05:30] VITALS: BP 107/65; PULSE 84; RESP 18; TEMP 36.4; O2SAT 96
[2020-12-31] MEDS: hydrOXYzine PAM 25 MG Capsule 50 MG PO ×2 (05:39→12:09)
[2020-12-31] MEDS: Methocarbamol 750 MG Tablet 1500 MG PO ×3 (05:39→20:39)
[2020-12-31] MEDS: Dicyclomine 10 MG Capsule 20 MG PO ×2 (05:40→12:10)
[2020-12-31] MEDS: cloNIDine HCl 0.1 MG Tablet PO ×2 (05:42→20:42)
[2020-12-31] MEDS: Buprenorphine HCl 2 MG TAB.SUBL SL ×3 (05:43→21:52)
[2020-12-31 06:05] LABS: Bacteria 0 SEEN /hpf (None Seen); Mucous, Urine 0 SEEN /hpf (<or=2+); Red Blood Cells-Urine 0 SEEN /hpf (0-5)
[2020-12-31 06:06] LABS: Color, Urine Yellow (Yellow); Glucose, Dipstick Normal (Normal); Ketone-Dipstick 5 mg/dl (Negative); Leukocyte Esterase-Dipstick 25 /ul (Negative); Nitrite-Dipstick Negative (Negative); Occult Blood-Urine Negative /ul (Negative); Protein-Dipstick 15 mg/dl (Negative); Urine Bilirubin Dipstick 1 mg/dL (Negative); Urine Clarity Clear (Clear); Urine Urobilinogen 12 mg/dl (Normal); Urine pH 6.5 (5.0 - 8.0)
[2020-12-31 06:17] LABS: Squamous Epithelial Cells - UA 5-10 SEEN /hpf (5-10); White Blood Cells 0-5 SEEN /hpf (0-5)
[2020-12-31] MEDS: Gabapentin 300 MG Capsule PO (07:50)
--- NOTE | 2020-12-31 09:31 | ADDICTION ---
This field underwriter attempted to meet with PT in her room. PT did not rouse to meet with this field underwriter. This field underwriter attempted to wake PT 3x. PT's nurse informed. This field underwriter will attempt to meet with PT on 12/31/20.
--- NOTE | 2020-12-31 10:46 | PCM.PN.HOSP ---
Patient Problems: Active and Suspected Problems Acute opioid intoxication delirium with moderate or severe use disorder (Acute) Opiate addiction (Acute) Subjective: Patient is currently lying in left side lying in bed, no real interaction with me today although awakens easily. Vitals/I&O's: Vital Signs Temp Pulse Resp BP Pulse Ox 97.6 F L 84 18 107/65 96 12/31/20 05:30 12/31/20 05:30 12/31/20 05:30 12/31/20 05:30 12/31/20 05:30 Oxygen Delivery Method Room Air Weight: 83.2 kg Body Mass Index (BMI) 27.1 Intake and Output for Last 24 Hours 12/29/20 12/30/20 12/31/20 23:59 23:59 23:59 Intake Total 300 / 300 Balance 300 / 300 General: Alert, Cooperative, No apparent distress, Well developed, Well nourished, - - Young white female lying in bed, minimally interactive with me although she is alert HEENT: Atraumatic, PERRLA, EOMI, Normocephalic, EAC Clear Oral: Moist Mucosa Neck: Supple, Trachea Midline Lungs: Clear to auscultation, Normal air movement, No rhonchi, No wheeze, No rales Cardiovascular: Regular rate, Regular Rhythm, Normal S1, Normal S2, No murmurs, No Ectopic Activity, No rub noted, No Gallop Abdomen: Bowel Sounds Present, Soft, Non Tender, Non-Distended Extremities: No clubbing, No cyanosis, No edema, Capillary Refill Less than 3 Seconds, Peripheral Pulses Normal Neurological: Cranial nerves II-XII grossly intact, Neuro grossly intact Psych/Mental Status: Flat Affect, - - Reaction Laboratory Results 12/30/20 16:30: Serum , Qual NEGATIVE 12/30/20 16:30: Hepatitis A IgM Ab Pending, Hep Bs Antigen Pending, Hep B Core IgM Ab Pending, Hepatitis C Ab (EIA) Pending 12/30/20 16:45: Sodium 138, Potassium 3.6, Chloride 107, Carbon Dioxide 23.0, Anion Gap 8, BUN 5 L, Creatinine 0.64, Estim Creat Clear Calc 137.99, Est GFR (MDRD) Af Amer 144, Est GFR (MDRD) Non-Af 119, BUN/Creatinine Ratio 7.9 L, Glucose 113 H, Calcium 9.6, Total Bilirubin 0.40, AST 16, ALT 19, Alkaline Phosphatase 137 H, Total Protein 8.7 H, Albumin 3.7, Globulin 5.0 H, Albumin/Globulin Ratio 0.7 L 12/30/20 16:45: Ethyl Alcohol < 3.0 12/30/20 16:45: Urine Opiates Screen POSITIVE H, Urine Methadone Screen NEGATIVE, Ur Barbiturates Screen NEGATIVE, Ur Phencyclidine Scrn NEGATIVE, Ur Amphetamines Screen NEGATIVE, U Methamphetamin-MDMA NEGATIVE, U Benzodiazepines Scrn NEGATIVE, Urine Cocaine Screen NEGATIVE, U Cannabinoids Screen POSITIVE H, Ur Drug Screen Comment 12/30/20 16:45: WBC 8.0, RBC 4.66, Hgb 13.8, Hct 41.7, MCV 89.5, MCH 29.6, MCHC 33.1, RDW Std Deviation 41.9, RDW Coeff of Guero 12.8, Plt Count 350, MPV 10.3, Immature Gran % (Auto) 0.300, Neut % (Auto) 68.7, Lymph % (Auto) 23.1, Centre % (Auto) 5.4, Eos % (Auto) 2.0, Baso % (Auto) 0.5, Absolute Neuts (auto) 5.5, Absolute Lymphs (auto) 1.84, Nucleated RBC % 0 12/30/20 16:45: PT 14.3, INR 1.2 12/31/20 05:45: Urine Color Yellow, Urine Clarity Clear, Urine pH 6.5, Ur Specific Gentry 1.020, Urine Protein 15 H, Urine Glucose (UA) Normal, Urine Ketones 5 H, Urine Occult Blood Negative, Urine Nitrite Negative, Urine Bilirubin 1 H, Urine Urobilinogen 12 H, Ur Leukocyte Esterase 25 H, Urine RBC 0 SEEN, Urine WBC 0-5 SEEN, Ur Squamous Epith Cells 5-10 SEEN, Urine Bacteria 0 SEEN, Urine Mucus 0 SEEN Current Medications Acetaminophen (Acetaminophen 500 Mg Tablet) 500 mg PO Q4H PRN PRN PRN Reason: Temp > 100.4 F Al Hydroxide/Mg Hydroxide (Mag Hydrox/Al Hydrox/Simeth 30 Ml Udc) 30 ml PO Q6H PRN PRN PRN Reason: dyspesia Bisacodyl (Bisacodyl 10 Mg Suppository) 10 mg RC DAILY PRN PRN Reason: Constipation Buprenorphine HCl (Buprenorphine Hcl 2 Mg Tab.Subl) 4 mg SL Q8H TED; Taper Stop: 01/02/21 21:44 Last Admin: 12/31/20 05:43 Dose: 4 mg Documented by: Clonidine (Clonidine Hcl 0.1 Mg Tablet) 0.1 mg PO Q8H PRN PRN PRN Reason: RESTLESSNESS Last Admin: 12/31/20 05:42 Dose: 0.1 mg Documented by: Dicyclomine HCl (Dicyclomine 10 Mg Capsule) 20 mg PO Q6H PRN PRN PRN Reason: Abdominal Discomfort Last Admin: 12/31/20 05:40 Dose: 20 mg Documented by: Gabapentin (Gabapentin 300 Mg Capsule) 300 mg PO Q8H PRN PRN PRN Reason: moderate to severe anxiety Last Admin: 12/31/20 07:50 Dose: 300 mg Documented by: Hydroxyzine Pamoate (Hydroxyzine Laura 25 Mg Capsule) 50 mg PO Q6H PRN PRN PRN Reason: mild anxiety Last Admin: 12/31/20 05:39 Dose: 50 mg Documented by: Ibuprofen (Ibuprofen 600 Mg Tablet) 600 mg PO Q8H PRN PRN PRN Reason: PAIN Last Admin: 12/30/20 22:11 Dose: 600 mg Documented by: Loperamide HCl (Loperamide 2 Mg Capsule) 2 mg PO Q4H PRN PRN PRN Reason: LOOSE STOOLS Methocarbamol (Methocarbamol 750 Mg Tablet) 1,500 mg PO Q6H PRN PRN PRN Reason: MUSCLE SPASM Last Admin: 12/31/20 05:39 Dose: 1,500 mg Documented by: Nicotine (Nicotine 21 Mg Patch) 21 mg TD DAILY TED Last Admin: 12/31/20 07:50 Dose: 21 mg Documented by: Ondansetron HCl (Ondansetron 8 Mg Tablet) 8 mg PO Q8H PRN PRN PRN Reason: NAUSEA Last Admin: 12/30/20 22:21 Dose: 8 mg Documented by: Senna (Senna Tablet) 2 tablet PO QHS PRN PRN Reason: Constipation Sodium Chloride (0.9% Saline Lock 10 Ml Syringe) 10 - 40 ml IV UD PRN PRN Reason: SALINE FLUSH Trazodone HCl (Trazodone 100 Mg Tablet) 100 mg PO QHS PRN PRN PRN Reason: INSOMNIA Last Admin: 12/30/20 22:11 Dose: 100 mg Documented by: Medical Necessity - Tobacco Use Smoking Status: Current every day smoker Tobacco Use: Cigarettes, Vapor Assessment/Plan All Active Problems Acute opioid intoxication delirium with moderate or severe use disorder (Acute) Opiate addiction (Acute) Acute opiate withdrawal -Suboxone taper -Continue supportive medications - test is negative -Since patient has a history of IV drug use we will check HIV and hepatitis status -Screen is positive for opiates and THC -180 consultation History of IV drug use/polysubstance abuse -See above -Check hepatitis and HIV status -Tox positive for opiates and THC Tobacco abuse -Recommend cessation -Continue patch Anxiety/depression with history of suicidal attempts -Patient currently denies any suicidal ideation -Continue trazodone -Restart Abilify and Effexor DVT prophylaxis -Early ambulation protocol -Low risk CODE STATUS -Full code Inpatient E&M: 88852 Subs Hosp L2
[2020-12-31 11:30] VITALS: BP 97/56; PULSE 78; RESP 18; TEMP 36.6; O2SAT 97
[2020-12-31] MEDS: Ibuprofen 600 MG Tablet PO (12:09)
--- NOTE | 2020-12-31 14:31 | CHAPLAIN ---
Type of Pastoral Visit ___ Initial Visit ___ Follow-up Visit ___ On-call Visit ___ General Patient Visit ___ Spiritual Assessment ___ Family Conference ___ Bereavement ___ Rapid Response ___ Code Blue ___ Other (describe below) Pastoral Care Referral From ___ Patient ___ Family ___ Nurse ___ Physician ___ Miter Grinder Operator ___ Corporate Executive ___ Other (describe below) Sacrament/Intervention ___ Active listening ___ Anointing ___ Spiritism ___ Bereavement ___ Communion ___ Karrie exploration ___ ___ Life review ___ Prayer ___ Reconciliation ___ Sacrament of Sick ___ Supportive presence ___ Wedding ___ Other (describe below) Pastoral Comments patient sleeping soundly;
[2020-12-31 17:22] VITALS: BP 94/48; PULSE 83; RESP 18; TEMP 36.6; O2SAT 97
[2020-12-31] MEDS: Ondansetron 8 MG Tablet PO (20:13)
[2020-12-31 20:40] VITALS: BP 113/66; PULSE 80
[2020-12-31 21:50] VITALS: BP 112/64; PULSE 72; RESP 16; TEMP 36.9; O2SAT 95
[2020-12-31] MEDS: traZODone 100 MG Tablet PO (23:45)
[2021-01-01 05:33] VITALS: BP 110/61; PULSE 81; RESP 16; TEMP 36.6; O2SAT 96
[2021-01-01] MEDS: cloNIDine HCl 0.1 MG Tablet PO (05:36)
[2021-01-01] MEDS: Buprenorphine HCl 2 MG TAB.SUBL SL ×2 (05:37→14:06)
[2021-01-01 07:07] LABS: HEPATITIS B SURFACE AG Negative (Negative); Hepatitis A IgM Antibody Negative (Negative); Hepatitis B Core AB IgM Negative (Negative)
[2021-01-01 09:10] LABS: HIV - WCH Non-Reactive (Nonreactive)
[2021-01-01 10:07] VITALS: BP 109/65; PULSE 74; RESP 18; TEMP 36.8; O2SAT 96
[2021-01-01] MEDS: ARIPiprazole 5 MG Tablet PO (10:09)
[2021-01-01] MEDS: Venlafaxine XR 150 MG Capsule 300 MG PO (10:09)
--- NOTE | 2021-01-01 10:34 | PCM.PN.HOSP ---
Patient Problems: Active and Suspected Problems Acute opioid intoxication delirium with moderate or severe use disorder (Acute) Opiate addiction (Acute) Subjective: Patient complains of 2 bouts of emesis overnight. She states that she is not nauseated at this time and feels that the Zofran has helped her considerably. She feels mildly tremulous but overall improving in the last 24 hours. She is currently on Suboxone 2 mg every 8 hours and will complete her taper tomorrow evening. Vitals/I&O's: Vital Signs Temp Pulse Resp BP Pulse Ox 98.2 F 74 18 109/65 96 01/01/21 10:07 01/01/21 10:07 01/01/21 10:07 01/01/21 10:07 01/01/21 10:07 Oxygen Delivery Method Room Air Weight: 83.2 kg Body Mass Index (BMI) 27.1 Intake and Output for Last 24 Hours 12/30/20 12/31/20 01/01/21 23:59 23:59 23:59 Intake Total 600 / 600 200 / 200 Balance 600 / 600 200 / 200 General: Alert, Oriented x3, Cooperative, No apparent distress, Well developed, Well nourished, - - Young white female, lying in bed, appears comfortable, nontoxic HEENT: Atraumatic, Normocephalic Oral: Moist Mucosa Neck: Supple, Trachea Midline Lungs: Clear to auscultation, Normal air movement, No rhonchi, No wheeze, No rales Cardiovascular: Regular rate, Regular Rhythm, Normal S1, Normal S2, No murmurs, No Ectopic Activity, No rub noted, No Gallop Abdomen: Bowel Sounds Present, Soft, Non Tender, Non-Distended Extremities: No clubbing, No cyanosis, No edema, Capillary Refill Less than 3 Seconds, Peripheral Pulses Normal Psych/Mental Status: Normal Affect, Appropriate Laboratory Results 12/30/20 16:30: HIV 1&2 Antibody Non-Reactive Current Medications Acetaminophen (Acetaminophen 500 Mg Tablet) 500 mg PO Q4H PRN PRN PRN Reason: Temp > 100.4 F Al Hydroxide/Mg Hydroxide (Mag Hydrox/Al Hydrox/Simeth 30 Ml Udc) 30 ml PO Q6H PRN PRN PRN Reason: dyspesia Aripiprazole (Aripiprazole 5 Mg Tablet) 5 mg PO DAILY TED Last Admin: 01/01/21 10:09 Dose: 5 mg Documented by: Bisacodyl (Bisacodyl 10 Mg Suppository) 10 mg RC DAILY PRN PRN Reason: Constipation Buprenorphine HCl (Buprenorphine Hcl 2 Mg Tab.Subl) 2 mg SL Q8H TED; Taper Stop: 01/02/21 21:44 Last Admin: 01/01/21 05:37 Dose: 2 mg Documented by: Clonidine (Clonidine Hcl 0.1 Mg Tablet) 0.1 mg PO Q8H PRN PRN PRN Reason: RESTLESSNESS Last Admin: 01/01/21 05:36 Dose: 0.1 mg Documented by: Dicyclomine HCl (Dicyclomine 10 Mg Capsule) 20 mg PO Q6H PRN PRN PRN Reason: Abdominal Discomfort Last Admin: 12/31/20 12:10 Dose: 20 mg Documented by: Gabapentin (Gabapentin 300 Mg Capsule) 300 mg PO Q8H PRN PRN PRN Reason: moderate to severe anxiety Last Admin: 12/31/20 07:50 Dose: 300 mg Documented by: Hydroxyzine Pamoate (Hydroxyzine Laura 25 Mg Capsule) 50 mg PO Q6H PRN PRN PRN Reason: mild anxiety Last Admin: 12/31/20 12:09 Dose: 50 mg Documented by: Ibuprofen (Ibuprofen 600 Mg Tablet) 600 mg PO Q8H PRN PRN PRN Reason: PAIN Last Admin: 12/31/20 12:09 Dose: 600 mg Documented by: Loperamide HCl (Loperamide 2 Mg Capsule) 2 mg PO Q4H PRN PRN PRN Reason: LOOSE STOOLS Methocarbamol (Methocarbamol 750 Mg Tablet) 1,500 mg PO Q6H PRN PRN PRN Reason: MUSCLE SPASM Last Admin: 12/31/20 20:39 Dose: 1,500 mg Documented by: Nicotine (Nicotine 21 Mg Patch) 21 mg TD DAILY TED Last Admin: 01/01/21 10:09 Dose: 21 mg Documented by: Ondansetron HCl (Ondansetron 8 Mg Tablet) 8 mg PO Q8H PRN PRN PRN Reason: NAUSEA Last Admin: 12/31/20 20:13 Dose: 8 mg Documented by: Senna (Senna Tablet) 2 tablet PO QHS PRN PRN Reason: Constipation Sodium Chloride (0.9% Saline Lock 10 Ml Syringe) 10 - 40 ml IV UD PRN PRN Reason: SALINE FLUSH Trazodone HCl (Trazodone 100 Mg Tablet) 100 mg PO QHS PRN PRN PRN Reason: INSOMNIA Last Admin: 12/31/20 23:45 Dose: 100 mg Documented by: Venlafaxine HCl (Venlafaxine Xr 150 Mg Capsule) 300 mg PO DAILY TED Last Admin: 01/01/21 10:09 Dose: 300 mg Documented by: STROKE Vital Signs/Narrative: Vital Signs Temp Pulse Resp BP Pulse Ox 01/01/21 10:07 98.2 F 74 18 109/65 96 Medical Necessity - Tobacco Use Smoking Status: Current every day smoker Tobacco Use: Cigarettes, Vapor Assessment/Plan All Active Problems Acute opioid intoxication delirium with moderate or severe use disorder (Acute) Opiate addiction (Acute) Acute opiate withdrawal -Suboxone taper--> patient is currently on 2 mg sublingual every 8 hours at this time -Continue supportive medications - test -negative -Since patient has a history of IV drug use we will check HIV and hepatitis status -Screen is positive for opiates and THC -180 to do meet with the patient yesterday but she did not rouse to meet a liaison and they will attempt to meet with her today History of IV drug use/polysubstance abuse -See above -Hepatitis studies are still pending -HIV is nonreactive -Tox positive for opiates and THC Tobacco abuse -Recommend cessation -Continue patch Anxiety/depression with history of suicidal attempts -Patient currently denies any suicidal ideation -Continue trazodone -Restart Abilify and Effexor DVT prophylaxis -Early ambulation protocol -Low risk CODE STATUS -Full code Inpatient E&M: 91612 Subs Hosp L2
--- NOTE | 2021-01-01 11:35 | ADDICTION ---
This justowriter operator met with PT to complete ASAM, MSE, DUDIT assessments and to plan for d/c. PT A+Ox4 and participated appropriately. PT plans to d/c to home and [facility]. PT refused direct admit. PT did not request transportation assistance. All documentation completed, faxed to [facility] and placed in PT's chart. Referral to [facility] completed and approved.
--- NOTE | 2021-01-01 11:43 | CASEMGMT ---
Social Work Note COMFORT reviewed chart. Pt delivered a baby at [facility] on 11/29/2017-12/02/2017. Pt's baby would be [age] years old now. COMFORT spoke with Ivet from [facility]. Pt's child is currently with the father of the baby and they are in a custody pozo and will be going to court next week. The Court is not through CPS, just through the Courts. SW in to speak with pt. Pt confirms that she has a three year old child named Richy Pryor. Pt states that Richy is currently with his father Homero Osborne. Pt states that Homero is good sober support. Pt states she NEVER uses in front of her child Richy and Lockhart is NEVER in the home when she uses. Pt states that Lockhart is always with Homero when she uses. Pt denied any abuse in the household. Pt states that her and Homero currently have shared parenting and confirm she has a court date next week. Pt states that CPS reports had been made in the past but they were closed, pt denied any current open CPS cases. Pt confirms that she plans on following up with [facility] at discharge. COMFORT spoke with Ivet with [facility] again regarding follow up plans. Ivet states pt will discharge from [facility] and return home to get belongings and then admit to [facility] for residential treatment. COMFORT discussed case with Francisco Zhang CREDIT ASSOCIATE-S, no CPS report is needed at this time. Pt has developed a safe plan for Richy (pt's child) when she uses and that plan involves pt NEVER using around Lockhart or when he is home and Lockhart being with his father Homero currently and when pt uses. COMFORT updated Ivet with [facility]. Teagan Castro APPLICATIONS PACKAGER, EMERGENCY DISPATCHER
[2021-01-01 12:19] LABS: Hep C Antibodies >11.0 s/co ratio (0.0-0.9)
[2021-01-01 14:08] VITALS: BP 103/62; PULSE 71; RESP 18; TEMP 36.9; O2SAT 98
--- NOTE | 2021-01-01 18:25 | NURSING ---
Pt asking to see her nurse-stating she wishes to leave. Explained to pt that she is not discharged and would be leaving against medical advice. Pt verbalizes understanding. Pt signs AMA paperwork. Tote opened for pt to get dressed and obtain belongings.
--- NOTE | 2021-01-02 06:59 | PCM.DC.SUM ---
Discharge Date and Diagnosis - Problem List Patient Problems: Active and Suspected Problems Acute opioid intoxication delirium with moderate or severe use disorder (Acute) Opiate addiction (Acute) Date of Admission: 12/30/20 Date of Discharge: 01/02/21 - Primary Discharge Diagnosis Acute Problems: Active Problems Acute opioid intoxication delirium with moderate or severe use disorder (Acute) Opiate addiction (Acute) - Secondary Discharge Diagnosis Chronic Problems: Chronic Problems History of depression (Chronic) Polysubstance (including opioids) dependence, daily use (Chronic) Nicotine use (Chronic) Bleeding (Chronic) Vaginal after elective ab Hospital Course and Treatment Operations: None Procedures: None Summary of Care Provided: Ms Pryor is a 25 year old WF presented to the emergency department [facility] on 12/30/2020 for acute opiate withdrawal and requesting detox. Per her report she had been using heroin and/or fentanyl for approximately 6 months and uses 1-1/2 to 2 g of IV narcotics daily. Upon presentation she had mild body aches and pain and restlessness. Upon admission she denied nausea vomiting tremor hallucination seizures or delusion. She did admit to depression with a history of 3 suicidal attempts in the past with the most recent being when she was 17 years old. She was admitted to the medical floor initiated a Suboxone taper follow-up had been established for her on Monday a.m. and the plan was to discharge on Monday afternoon. However, the patient elected to leave AGAINST MEDICAL ADVICE on 01/01/2021. Patient Problems: Active and Suspected Problems Acute opioid intoxication delirium with moderate or severe use disorder (Acute) Opiate addiction (Acute) - Physical Exam Vitals/I&O's: Vital Signs Temp Pulse Resp BP Pulse Ox 98.4 F 71 18 103/62 98 01/01/21 14:08 01/01/21 14:08 01/01/21 14:08 01/01/21 14:08 01/01/21 14:08 Oxygen Delivery Method Room Air Weight: 83.2 kg Body Mass Index (BMI) 27.1 Intake and Output for Last 24 Hours 12/31/20 01/01/21 01/02/21 23:59 23:59 23:59 Intake Total 600 / 600 200 / 200 Balance 600 / 600 200 / 200 Laboratory Results 12/30/20 16:30: Hepatitis A IgM Ab Negative, Hep Bs Antigen Negative, Hep B Core IgM Ab Negative, Hepatitis C Ab (EIA) >11.0 H 12/30/20 16:30: HIV 1&2 Antibody Non-Reactive Home Medications: Medications to take at Discharge Venlafaxine HCl [Venlafaxine HCl ER] 300 mg PO DAILY 08/12/18 Aripiprazole [Abilify] 5 mg PO DAILY 12/30/20 Sulfamethoxazole/Trimethoprim [Sulfamethoxazole-Tmp Ds Tablet] 1 each PO DAILY 12/30/20 Primary Care Physician: Floridalma Woodard DO [Primary Care Provider] - Medical Necessity - Tobacco Use Smoking Status: Current every day smoker Tobacco Use: Cigarettes, Vapor Meaningful Use Info Meaningful Use Diagnoses (Choose all that apply): None applicable
== END 2021-01-01 18:37 | disposition left against medical advice (07) | DRG 770 ==
LOC: ED 17:30 → MS3 17:48
PROVIDERS: Admitting Provider Internal Medicine; Emergency Provider Emergency Medicine; Visit Provider Internal Medicine
DX: F11.221 Opioid dependence with intoxication delirium (principal); Z53.29 Procedure and treatment not carried out because of patient's decision for other reasons; F17.210 Nicotine dependence, cigarettes, uncomplicated; F32.9 Major depressive disorder, single episode, unspecified; F41.9 Anxiety disorder, unspecified; Z79.899 Other long term (current) drug therapy; Z91.5 Personal history of self-harm
CPT/HCPCS: 80053; 80074; 80307; 81001; 82077; 84703; 85025; 85610; 86703; 97802; 99283

== ENCOUNTER 2021-01-15 12:05 | Observation (INO) | payer MEDICAID, SELFPAY ==
[2021-01-15 12:06] VITALS: BP 118/64; PULSE 87; RESP 15; TEMP 36.7; O2SAT 97; BMI 25.9
--- NOTE | 2021-01-15 12:43 | NURSING ---
DR HUGGINS FOR DR MIJARES
--- NOTE | 2021-01-15 12:45 | ED.DCSUM_ITS ---
History of Present Illness Chief Complaint: Substance Abuse Narrative: Patient presenting secondary to substance abuse and requesting detox. Patient is a daily heroin user. She was admitted for detox around 3 weeks ago and signed out AGAINST MEDICAL ADVICE. Patient states that she relapsed soon thereafter. Patient states that her last use was today at about 11 AM. She denies any somatic complaints. She denies any other coingestants or any other drug use such as benzodiazepines. Review of systems otherwise negative. Past Medical History - Allergies and Home Meds Allergies/Adverse Reactions: Allergies No Known Allergies Allergy (Verified 01/15/21 12:14) Primary Care Physician: Floridalma Woodard DO [Primary Care Provider] - Prior records reviewed: Yes Past Medical History: - - Heroin use Surgical History: no surgical history, noncontributory Smoking Status: Current every day smoker Drugs: Heroin - Family History Maternal Family History: Reports: - - Patient father is chronic alcoholic. History of depression Paternal Family History: Reports: No pertinent history Review of Systems All systems negative except as indicated General: Denies: Chills, Fever, Sweats Eyes: Denies: Visual changes - bilaterally, Diplopia ENT: Denies: Rhinorrhea, Sore throat Cardiovascular: Denies: Chest pain, Palpitations Respiratory: Denies: Dyspnea, Cough, Dyspnea on exertion Gastrointestinal: Denies: Abdominal pain, Nausea, Vomiting, Diarrhea, Melena, Hematochezia Genitourinary: Denies: Dysuria, Hematuria, Frequency Musculoskeletal: Denies: Back pain, Extremity Pain Skin: Denies: Rash, Wounds Neurological: Denies: Headache, Weakness, Numbness Physical Exam Vital Signs/Narrative: Vital Signs Temp Pulse Resp BP Pulse Ox 01/15/21 12:06 98.1 F 87 15 118/64 97 Inital Vital Signs reviewed: Yes General: Well nourished, Well developed, No Acute Distress Head: Normocephalic, Atraumatic Eyes: Perrl, EOMI ENT: Moist mucous membranes, No rhinorrhea Neck: Supple, Nontender Cardiovascular: Regular rate, Regular rhythm, Murmur - 2 out of 6 systolic Respiratory: No distress, CTA bilaterally, Chest nontender Abdomen: Soft, Nontender, Nondistended, Normal bowel sounds Back: Nontender, Normal Inspection Extremities: Nontender, No edema, - - Multiple areas of bruising and track cazares on the arms, no evidence of abscesses or infection Skin: Normal color, No rash Neurological: Alert, Oriented x3, Cranial nerves II-XII grossly intact, Normal Strength, Normal Sensation Psychological: Normal affect, Normal Mood Diagnostic/Tx/Re-eval - Medical Decision Making Patient presented secondary to opiate detox. Screening labs were obtained, patient will be admitted. Patient has no evidence of infected injection sites. She has a heart murmur which she states that she has had in the past, not concerned at this point for endocarditis. ED Disposition - Plan for ED Patient: Disposition: Acute Care Hospital [facility] Diagnosis: Opiate addiction Referrals: Floridalma Woodard DO [Primary Care Provider] -
[2021-01-15 12:50] LABS: Absolute Lymphocyte Count 2.76 X10^3/uL (0.83-4.51); Absolute Neutrophil Count 3.6 X10^3/uL (2.0-7.7); Basophil# 0.02 X10^3/uL; Basophil% 0.3 % (0-1); Eosinophil# 0.27 X10^3/uL; Eosinophils% 3.8 % (0-5); Hematocrit 41.3 % (37-47); Hemoglobin 13.6 g/dL (12.0-15.0); Lymphocyte # 2.76 X10^3/ul (4.0); Mean Corp Hgb Conc 32.9 g/dL (32-36); Mean Corpuscular Hgb 29.6 pg (27.0-32.0); Mean Platelet Vol. 10.4 fl (6.2-12.0); Monocyte# 0.46 X10^3/uL; Monocyte% 6.5 % (0-10); NRBC Flagged by Analyzer 0 % (0-5); Neutrophil # 3.56 X10^3/uL (2.7-7.7); Neutrophil % 50.3 % (47-70); Platelet Count 290 K/mm3 (150-450); RBC Distribution Width CV 13.2 % (11.6-14.6); RBC Distribution Width SD 43.3 fl (35.1-43.9); Red Blood Count 4.59 M/mm3 (4.2-5.4); White Blood Count 7.1 K/mm3 (4.4-11.0)
--- NOTE | 2021-01-15 12:55 | NURSING ---
MED SURG OPIATE DEPENDENCE JOSELUIS
--- NOTE | 2021-01-15 12:57 | ED.RN ---
ONE [facility] CALLES NOTIFIED OF ADMISSION TO [facility].
[2021-01-15 13:05] LABS: Internal QC Validated? YES +Cl - CLEAR BKGD; Pregnancy, Serum, hCG Quali. NEGATIVE Negative
[2021-01-15 13:10] LABS: AST(SGOT) 17 U/L (15-37); Alanine Aminotransfer ALT/SGPT 24 U/L (13-56); Alkaline Phosphatase 122 U/L (45-117); Anion Gap 6 (5-15); BUN 6 mg/dL (7-18); BUN/Creat Ratio 10.9 RATIO (10-20); Calcium,Total 9.3 mg/dL (8.5-10.1); Chloride 106 mmol/L (98-107); Creatinine, Serum 0.55 mg/dL (0.55-1.02); EST Glomerular Filtration Rate 141 mL/min (>60); Est Glom Filt Rate - Afr Amer 170 mL/min (>60); Estimated Creatinine Clearance 160.57 ml/min; Globulin 4.2 g/dL (2.2-4.2); Glucose 103 mg/dL (74-106); Potassium 3.4 mmol/L (3.5-5.1); Protein, Total 8.2 g/dL (6.4-8.2); Sodium Level 136 mmol/L (136-145)
[2021-01-15 13:14] LABS: Amphetamine Urine VISTA NEGATIVE (<1000 ng/mL); Barbiturate Urine VISTA NEGATIVE (< 200 ng/mL); Benzodiazepine Urine VISTA NEGATIVE (< 200 ng/mL); Cocaine Urine VISTA NEGATIVE (< 300 ng/mL); Ecstacy Urine VISTA NEGATIVE (< 500 ng/mL); Methadone Urine VISTA NEGATIVE (< 300 ng/mL); PCP Urine VISTA NEGATIVE (< 25 ng/mL); THC Urine VISTA NEGATIVE (< 50 ng/mL); Vista UDS pH Range 6
[2021-01-15 13:23] VITALS: BP 118/64; PULSE 87; RESP 15; TEMP 36.7; O2SAT 97
[2021-01-15 13:35] VITALS: BMI 25.9
[2021-01-15 13:51] VITALS: BP 119/62; PULSE 85; RESP 16; TEMP 36.3; O2SAT 95
--- NOTE | 2021-01-15 13:59 | HP.PCM_ITS ---
Problem List (1) History of depression Status: Chronic (2) Acute opioid intoxication delirium with moderate or severe use disorder Status: Acute (3) Polysubstance (including opioids) dependence, daily use Status: Chronic (4) Nicotine use Status: Chronic (5) Opiate addiction Status: Chronic (6) Bleeding Status: Resolved Comment: Vaginal after elective ab History of Present Illness Date of Admission: 01/15/21 Chief Complaint: Opioid withdrawal. The patient is a 25 year old F who presents emergency room due to opioid withdrawal. Patient admits to daily heroin use. Recent admission for detox December 2020 where she signed out AGAINST MEDICAL ADVICE. Patient reports last use around 11 AM today. She reports nausea, denies other withdrawal symptoms. Patient is unsure if she wants to take Subutex as she states this was part of the reason she signed out AMA last admission. Patient states Subutex made her feel sick for 14 days following taking it. She has a past medical history of polysubstance abuse, tobacco dependence, anxiety, depression. Past Medical History Past Medical History (Chronic Problems): Chronic Problems History of depression (Chronic) Polysubstance (including opioids) dependence, daily use (Chronic) Nicotine use (Chronic) Opiate addiction (Chronic) Allergies No Known Allergies Allergy (Verified 01/15/21 12:14) Home Medications: Ambulatory Orders Medication Instructions Recorded Aripiprazole [Abilify] 5 mg PO DAILY 12/30/20 Clonidine HCl 0.1 mg PO DAILY 01/15/21 Promethazine HCl 25 mg PO Q6H PRN 01/15/21 Venlafaxine HCl [Venlafaxine HCl 150 mg PO BID 01/15/21 ER] Surgical History: no surgical history Psychiatric History: No pertinent psych hx [employer] SERVICER History: spontaneous - x 1, elective termination x 1 Lives: Spouse/ Significant Other Smoking Status: Current every day smoker Tobacco Use: Cigarettes Drugs: Heroin - *Family History Maternal History Items: - - Patient father is chronic alcoholic. History of depression Paternal History Items: - - Denies known paternal medical history including cardiac history. Review of Systems Constitutional: Denies: Chills, Fever, Weight Change HEENT: Denies: Head Aches, Sinus Congestion, Sinus Drainage Cardiovascular: Denies: Chest Pain, Palpitations Respiratory: Denies: Cough, Shortness of breath at rest, Sputum production Gastrointestinal: Reports: Nausea. Denies: Abdominal Pain, Vomiting Genitourinary: Denies: Dysuria Musculoskeletal: Denies: Joint Pain, Joint Tenderness Skin: Denies: Rash, Wounds Neurological: Denies: Numbness, Tingling, Focal weakness Psychiatric: Denies: Anxiety, Depression, Homicidal Ideations, Suicidal Ideations Hematologic/ Lymphatic: Denies: Easy Bruising, Easy Bleeding VTE Information - Inpt Only VTE Present on Admission: No VTE Mechan Device Prophylaxis: None VTE Pharm Prophylaxis ordered?: No Reason prophylaxis not ordered:: Treatment Not Indicated Patient Problems: Active and Suspected Problems Acute opioid intoxication delirium with moderate or severe use disorder (Acute) - Physical Exam Vitals/I&O's: Vital Signs Temp Pulse Resp BP Pulse Ox 97.3 F L 85 16 119/62 95 01/15/21 13:51 01/15/21 13:51 01/15/21 13:51 01/15/21 13:51 01/15/21 13:51 Oxygen Delivery Method Room Air Weight: 175 lb 11.2 oz Body Mass Index (BMI) 25.9 General: Alert, Oriented x3, Cooperative HEENT: Atraumatic, PERRLA, EOMI, Normocephalic Neck: Supple, No JVD, Negative Carotid Bruits Lungs: Clear to auscultation, Normal air movement Cardiovascular: Regular rate, No murmurs Abdomen: Bowel Sounds Present, Soft, Non Tender Extremities: No edema, Capillary Refill Less than 3 Seconds Skin: No rashes, No breakdown Musculoskeletal: No Tenderness to Palpation of Joints or Extremities Neurological: Cranial nerves II-XII grossly intact, Neuro grossly intact Psych/Mental Status: Normal Affect, Appropriate Laboratory Results 01/15/21 12:30: WBC 7.1, RBC 4.59, Hgb 13.6, Hct 41.3, MCV 90.0, MCH 29.6, MCHC 32.9, RDW Std Deviation 43.3, RDW Coeff of Guero 13.2, Plt Count 290, MPV 10.4, Immature Gran % (Auto) 0.100, Neut % (Auto) 50.3, Lymph % (Auto) 39.0, [place] % (Auto) 6.5, Eos % (Auto) 3.8, Baso % (Auto) 0.3, Absolute Neuts (auto) 3.6, Absolute Lymphs (auto) 2.76, Nucleated RBC % 0 01/15/21 12:30: Sodium 136, Potassium 3.4 L, Chloride 106, Carbon Dioxide 24.0, Anion Gap 6, BUN 6 L, Creatinine 0.55, Estim Creat Clear Calc 160.57, Est GFR (MDRD) Af Amer 170, Est GFR (MDRD) Non-Af 141, BUN/Creatinine Ratio 10.9, Glucose 103, Calcium 9.3, Total Bilirubin 0.30, AST 17, ALT 24, Alkaline Phosphatase 122 H, Total Protein 8.2, Albumin 4.0, Globulin 4.2, Albumin /Globulin Ratio 1.0 01/15/21 12:30: Ethyl Alcohol 5.0 01/15/21 12:30: Urine Opiates Screen POSITIVE H, Urine Methadone Screen NEGATIVE, Ur Barbiturates Screen NEGATIVE, Ur Phencyclidine Scrn NEGATIVE, Ur Amphetamines Screen NEGATIVE, U Methamphetamin-MDMA NEGATIVE, U Benzodiazepines Scrn NEGATIVE, Urine Cocaine Screen NEGATIVE, U Cannabinoids Screen NEGATIVE, Ur Drug Screen Comment 01/15/21 12:30: Serum , Qual NEGATIVE Current Medications Sodium Chloride () 250 mls @ 15 mls/hr IV .[id number] PRN PRN Reason: Saline Flush Sodium Chloride () 250 mls @ 15 mls/hr IV .[id number] PRN PRN Reason: Additional IVPB Infusion Sodium Chloride (0.9% Saline Lock 10 Ml Syringe) 10 - 40 ml IV UD PRN PRN Reason: SALINE FLUSH Assessment/Plan All Active Problems Acute opioid intoxication delirium with moderate or severe use disorder (Acute) Bleeding (Resolved) 1. Acute opiate withdrawal-medical stabilization per protocol. Suboxone taper. test negative. As needed regimen for somatic complaints. [employer] consult. 2. Polysubstance abuse, history of IV drug use-tox screen positive for opiates, negative for other substances. 3. Tobacco dependence-encouraged cessation. Nicotine replacement patch if desired. 4. Anxiety/depression with history of suicidal attempts-denies current suicidal ideation. On Abilify, Effexor. DVT prophylaxis-not indicated, early ambulation This patient was seen by WM Dockery under the supervision of Dr. Cordero.
[2021-01-15] MEDS: Venlafaxine XR 150 MG Capsule PO (20:57)
[2021-01-15 21:00] VITALS: BP 110/57; PULSE 68; RESP 16; TEMP 36.9; O2SAT 97
[2021-01-16 03:33] VITALS: BP 113/59; PULSE 65; RESP 16; TEMP 36.4; O2SAT 100
[2021-01-16 08:05] VITALS: BP 114/62; PULSE 74; RESP 18; TEMP 36.7; O2SAT 97
--- NOTE | 2021-01-16 09:57 | PCM.PROGNOTE ---
Patient Problems: Active and Suspected Problems Acute opioid intoxication delirium with moderate or severe use disorder (Acute) Subjective: Patient seen and examined. Denies withdrawal symptoms. Refusing Subutex. Awaiting [employer]. - Physical Exam Vitals/I&O's: Vital Signs Temp Pulse Resp BP Pulse Ox 98.0 F 74 18 114/62 97 01/16/21 08:05 01/16/21 08:05 01/16/21 08:05 01/16/21 08:05 01/16/21 08:05 Oxygen Delivery Method Room Air Weight: 175 lb 11.2 oz Body Mass Index (BMI) 25.9 Intake and Output for Last 24 Hours 01/14/21 01/15/21 01/16/21 23:59 23:59 23:59 Intake Total 500 / 500 Balance 500 / 500 General: Alert, Oriented x3, Cooperative HEENT: Atraumatic, PERRLA, EOMI, Normocephalic Neck: Supple, No JVD, Negative Carotid Bruits Lungs: Clear to auscultation, Normal air movement Cardiovascular: Regular rate, No murmurs Abdomen: Bowel Sounds Present, Soft, Non Tender Extremities: No clubbing, No cyanosis, No edema, Capillary Refill Less than 3 Seconds Skin: No rashes, No breakdown Musculoskeletal: No Tenderness to Palpation of Joints or Extremities Neurological: Cranial nerves II-XII grossly intact, Neuro grossly intact Psych/Mental Status: Normal Affect, Appropriate Laboratory Results 01/15/21 12:30: WBC 7.1, RBC 4.59, Hgb 13.6, Hct 41.3, MCV 90.0, MCH 29.6, MCHC 32.9, RDW Std Deviation 43.3, RDW Coeff of Guero 13.2, Plt Count 290, MPV 10.4, Immature Gran % (Auto) 0.100, Neut % (Auto) 50.3, Lymph % (Auto) 39.0, [place] % (Auto) 6.5, Eos % (Auto) 3.8, Baso % (Auto) 0.3, Absolute Neuts (auto) 3.6, Absolute Lymphs (auto) 2.76, Nucleated RBC % 0 01/15/21 12:30: Sodium 136, Potassium 3.4 L, Chloride 106, Carbon Dioxide 24.0, Anion Gap 6, BUN 6 L, Creatinine 0.55, Estim Creat Clear Calc 160.57, Est GFR (MDRD) Af Amer 170, Est GFR (MDRD) Non-Af 141, BUN/Creatinine Ratio 10.9, Glucose 103, Calcium 9.3, Total Bilirubin 0.30, AST 17, ALT 24, Alkaline Phosphatase 122 H, Total Protein 8.2, Albumin 4.0, Globulin 4.2, Albumin/Globulin Ratio 1.0 01/15/21 12:30: Ethyl Alcohol 5.0 01/15/21 12:30: Urine Opiates Screen POSITIVE H, Urine Methadone Screen NEGATIVE, Ur Barbiturates Screen NEGATIVE, Ur Phencyclidine Scrn NEGATIVE, Ur Amphetamines Screen NEGATIVE, U Methamphetamin-MDMA NEGATIVE, U Benzodiazepines Scrn NEGATIVE, Urine Cocaine Screen NEGATIVE, U Cannabinoids Screen NEGATIVE, Ur Drug Screen Comment 01/15/21 12:30: Serum , Qual NEGATIVE Current Medications Acetaminophen (Acetaminophen 500 Mg Tablet) 500 mg PO Q4H PRN PRN PRN Reason: Temp > 100.4 F Aripiprazole (Aripiprazole 5 Mg Tablet) 5 mg PO DAILY [facility] Clonidine (Clonidine Hcl 0.1 Mg Tablet) 0.1 mg PO DAILY [facility] Clonidine (Clonidine Hcl 0.1 Mg Tablet) 0.1 mg PO Q8H PRN PRN PRN Reason: RESTLESSNESS Dicyclomine HCl (Dicyclomine 10 Mg Capsule) 20 mg PO Q6H PRN PRN PRN Reason: Abdominal Discomfort Ibuprofen (Ibuprofen 600 Mg Tablet) 600 mg PO Q8H PRN PRN PRN Reason: PAIN Loperamide HCl (Loperamide 2 Mg Capsule) 2 mg PO Q4H PRN PRN PRN Reason: LOOSE STOOLS Methocarbamol (Methocarbamol 750 Mg Tablet) 1,500 mg PO Q6H PRN PRN PRN Reason: MUSCLE SPASM Nicotine (Nicotine 21 Mg Patch) 21 mg TD DAILY [facility] Last Admin: 01/16/21 08:09 Dose: 21 mg Documented by: Ondansetron HCl (Ondansetron 8 Mg Tablet) 8 mg PO Q8H PRN PRN PRN Reason: NAUSEA Promethazine HCl (Promethazine 25 Mg Tablet) 25 mg PO Q6H PRN PRN Reason: NAUSEA/VOMITING Trazodone HCl (Trazodone 100 Mg Tablet) 100 mg PO QHS PRN PRN PRN Reason: INSOMNIA Venlafaxine HCl (Venlafaxine Xr 150 Mg Capsule) 150 mg PO BID TED Last Admin: 01/15/21 20:57 Dose: 150 mg Documented by: Medical Necessity - Tobacco Use Smoking Status: Current every day smoker Tobacco Use: Cigarettes Assessment/Plan All Active Problems Acute opioid intoxication delirium with moderate or severe use disorder (Acute) Bleeding (Resolved) 1. Acute opiate withdrawal-medical stabilization per protocol. Refusing Suboxone taper. As needed regimen for somatic complaints. [employer] consult. 2. Polysubstance abuse, history of IV drug use-tox screen positive for opiates, negative for other substances. 3. Tobacco dependence-encouraged cessation. Nicotine replacement patch if desired. 4. Anxiety/depression with history of suicidal attempts-denies current suicidal ideation. On Abilify, Effexor. DVT prophylaxis-not indicated, early ambulation This patient was seen by WM Dockery under the supervision of Dr. Cordero.
[2021-01-16] MEDS: Venlafaxine XR 150 MG Capsule PO (10:19)
[2021-01-16] MEDS: ARIPiprazole 5 MG Tablet PO (10:19)
[2021-01-16] MEDS: cloNIDine HCl 0.1 MG Tablet PO (10:19)
[2021-01-16 12:11] VITALS: BP 104/59; PULSE 67; RESP 18; TEMP 36.9; O2SAT 97
--- NOTE | 2021-01-16 12:50 | NURSING ---
called to pt's room. pt states she feels comfortable going home. asking to be discharged. Informed Dr. solomon on the unit and I will inform him.
--- NOTE | 2021-01-16 13:01 | DCINST_ITS ---
- Discharge Diagnoses Current Active Problems: Current Active and Chronic Problems History of depression (Chronic) Acute opioid intoxication delirium with moderate or severe use disorder (Acute) Polysubstance (including opioids) dependence, daily use (Chronic) Nicotine use (Chronic) Opiate addiction (Chronic) You will use the following diet at home:: No restrictions Discharge Activity: Return to Normal Activity Allergies/Adverse Reactions: Allergies No Known Allergies Allergy (Verified 01/15/21 12:14) Medications to take at Discharge Aripiprazole [Abilify] 5 mg PO DAILY 12/30/20 Clonidine HCl 0.1 mg PO DAILY 01/15/21 Promethazine HCl 25 mg PO Q6H PRN 01/15/21 Venlafaxine HCl [Venlafaxine HCl ER] 150 mg PO BID 01/15/21 Primary Care Physician: Floridalma Woodard DO [Primary Care Provider] - Please follow up with your Primary Care Physician in: 1 week Test Results: Test results from this visit will be discussed in further detail at your follow- up appointment, if applicable. Proposed Discharge Date: 01/16/21
--- NOTE | 2021-01-16 13:09 | DS.PCM_ITS ---
Discharge Date and Diagnosis - Problem List Patient Problems: Active and Suspected Problems Acute opioid intoxication delirium with moderate or severe use disorder (Acute) Date of Admission: 01/15/21 Date of Discharge: 01/16/21 - Primary Discharge Diagnosis Acute Problems: Active Problems 1. Acute opiate withdrawal 2. Polysubstance abuse, history of IV drug use 3. Tobacco dependence 4. Anxiety/depression with history of suicidal attempts - Secondary Discharge Diagnosis Chronic Problems: Chronic Problems History of depression (Chronic) Polysubstance (including opioids) dependence, daily use (Chronic) Nicotine use (Chronic) Opiate addiction (Chronic) Hospital Course and [facility] Operations: None Procedures: None Summary of Care Provided: The patient is a 25 year old F admitted 01/15/21 due to opioid withdrawal, requesting detox. 1. Acute opiate withdrawal-medical stabilization per protocol. Refusing Suboxone taper. No withdrawal symptoms during admission. [facility] consulted and will speak with patient prior to discharge. Patient requesting discharge as she has not had any withdrawal symptoms and has not been taking Suboxone or as needed medications. Outpatient follow-up with [facility]. 2. Polysubstance abuse, history of IV drug use-tox screen positive for opiates, negative for other substances. 3. Tobacco dependence-encouraged cessation. . 4. Anxiety/depression with history of suicidal attempts-denies current suicidal ideation. On Abilify, Effexor. General: Alert, Oriented x3, Cooperative HEENT: Atraumatic, PERRLA, EOMI, Normocephalic Neck: Supple, No JVD, Negative Carotid Bruits Lungs: Clear to auscultation, Normal air movement Cardiovascular: Regular rate, No murmurs Abdomen: Bowel Sounds Present, Soft, Non Tender Extremities: No clubbing, No cyanosis, No edema, Capillary Refill Less than 3 Seconds Skin: No rashes, No breakdown Musculoskeletal: No Tenderness to Palpation of Joints or Extremities Neurological: Cranial nerves II-XII grossly intact, Neuro grossly intact Psych/Mental Status: Normal Affect, Appropriate Patient seen and examined prior to discharge. Physical assessment as noted above. Patient is stable for discharge with follow up recommendations as noted above. This patient was seen by WM Dockery under the supervision of Dr. Cordero. Patient Problems: Active and Suspected Problems Acute opioid intoxication delirium with moderate or severe use disorder (Acute) - Physical Exam Vitals/I&O's: Vital Signs Temp Pulse Resp BP Pulse Ox 98.4 F 67 18 104/59 L 97 01/16/21 12:11 01/16/21 12:11 01/16/21 12:11 01/16/21 12:11 01/16/21 12:11 Oxygen Delivery Method Room Air Weight: 175 lb 11.2 oz Body Mass Index (BMI) 25.9 Intake and Output for Last 24 Hours 01/14/21 01/15/21 01/16/21 23:59 23:59 23:59 Intake Total 500 / 500 Balance 500 / 500 Laboratory Results 01/15/21 12:30: Sodium 136, Potassium 3.4 L, Chloride 106, Carbon Dioxide 24.0, Anion Gap 6, BUN 6 L, Creatinine 0.55, Estim Creat Clear Calc 160.57, Est GFR (MDRD) Af Amer 170, Est GFR (MDRD) Non-Af 141, BUN/Creatinine Ratio 10.9, Glucose 103, Calcium 9.3, Total Bilirubin 0.30, AST 17, ALT 24, Alkaline Phosphatase 122 H, Total Protein 8.2, Albumin 4.0, Globulin 4.2, Albumin/Globulin Ratio 1.0 01/15/21 12:30: Ethyl Alcohol 5.0 01/15/21 12:30: Urine Opiates Screen POSITIVE H, Urine Methadone Screen NEGATIVE, Ur Barbiturates Screen NEGATIVE, Ur Phencyclidine Scrn NEGATIVE, Ur Amphetamines Screen NEGATIVE, U Methamphetamin-MDMA NEGATIVE, U Benzodiazepines Scrn NEGATIVE, Urine Cocaine Screen NEGATIVE, U Cannabinoids Screen NEGATIVE Current Medications Acetaminophen (Acetaminophen 500 Mg Tablet) 500 mg PO Q4H PRN PRN PRN Reason: Temp > 100.4 F Aripiprazole (Aripiprazole 5 Mg Tablet) 5 mg PO DAILY [facility] Last Admin: 01/16/21 10:19 Dose: 5 mg Documented by: Clonidine (Clonidine Hcl 0.1 Mg Tablet) 0.1 mg PO DAILY [facility] Last Admin: 01/16/21 10:19 Dose: 0.1 mg Documented by: Clonidine (Clonidine Hcl 0.1 Mg Tablet) 0.1 mg PO Q8H PRN PRN PRN Reason: RESTLESSNESS Dicyclomine HCl (Dicyclomine 10 Mg Capsule) 20 mg PO Q6H PRN PRN PRN Reason: Abdominal Discomfort Ibuprofen (Ibuprofen 600 Mg Tablet) 600 mg PO Q8H PRN PRN PRN Reason: PAIN Loperamide HCl (Loperamide 2 Mg Capsule) 2 mg PO Q4H PRN PRN PRN Reason: LOOSE STOOLS Methocarbamol (Methocarbamol 750 Mg Tablet) 1,500 mg PO Q6H PRN PRN PRN Reason: MUSCLE SPASM Nicotine (Nicotine 21 Mg Patch) 21 mg TD DAILY [facility] Last Admin: 01/16/21 08:09 Dose: 21 mg Documented by: Ondansetron HCl (Ondansetron 8 Mg Tablet) 8 mg PO Q8H PRN PRN PRN Reason: NAUSEA Promethazine HCl (Promethazine 25 Mg Tablet) 25 mg PO Q6H PRN PRN Reason: NAUSEA/VOMITING Trazodone HCl (Trazodone 100 Mg Tablet) 100 mg PO QHS PRN PRN PRN Reason: INSOMNIA Venlafaxine HCl (Venlafaxine Xr 150 Mg Capsule) 150 mg PO BID [facility] Last Admin: 01/16/21 10:19 Dose: 150 mg Documented by: Discharge Diet: No Restrictions Discharge Activity: Return to Normal Activity Home Medications: Medications to take at Discharge Aripiprazole [Abilify] 5 mg PO DAILY 12/30/20 Clonidine HCl 0.1 mg PO DAILY 01/15/21 Promethazine HCl 25 mg PO Q6H PRN 01/15/21 Venlafaxine HCl [Venlafaxine HCl ER] 150 mg PO BID 01/15/21 Primary Care Physician: Floridalma Woodard DO [Primary Care Provider] - Please follow up with your Primary Care Physician in: 1 week Disposition: Home Minutes spent on discharge:: 35 Patient Condition:: Stable Medical Necessity - Tobacco Use Smoking Status: Current every day smoker Tobacco Use: Cigarettes Meaningful Use Info Meaningful Use Diagnoses (Choose all that apply): None applicable
--- NOTE | 2021-01-16 13:11 | NURSING ---
informed patient of conversation w/ that [facility] is here and will see her next then when I get her DC papers I will open her belongings totes and she will be discharged., pt agreeable to plan
[2021-01-16 13:45] VITALS: BP 101/54; PULSE 79; RESP 18; TEMP 36.8; O2SAT 97
== END 2021-01-16 14:00 | disposition home or self-care (01) ==
LOC: ED 12:54 → MS3 01-18 09:12
PROVIDERS: Admitting Provider Internal Medicine; Emergency Provider Emergency Medicine; Visit Provider Internal Medicine
DX: F11.23 Opioid dependence with withdrawal (principal); F17.210 Nicotine dependence, cigarettes, uncomplicated; Z79.899 Other long term (current) drug therapy; F41.9 Anxiety disorder, unspecified; F32.9 Major depressive disorder, single episode, unspecified; Z91.5 Personal history of self-harm
CPT/HCPCS: 36415; 80053; 80307; 82077; 84703; 85025; 99218; 99283; G0378

== ENCOUNTER 2021-06-07 14:04 | Inpatient (IN) | payer MEDICAID, SELFPAY ==
[2021-06-07 14:04] VITALS: BP 135/88; PULSE 94; RESP 16; TEMP 36.4; O2SAT 97; BMI 30.6
--- NOTE | 2021-06-07 14:38 | EDS_ITS ---
HPI History of Present Illness Chief Complaint: Substance Abuse Narrative Narrative: 25-year-old female with history of opioid and Xanax abuse presenting for detox. She states her last use was 2 days ago. Patient states that she has been using about 1-1/2 to 2 g of fentanyl daily. She states that he uses Xanax intermittently between having fentanyl to use to help her with her symptoms. Patient states she last detoxed at [facility] about a year ago. Patient denies alcohol abuse. Patient states she has goosebumps and has been having diarrhea as well as nausea. Patient admits to a history of anxiety and depression. She is on Abilify and venlafaxine for this. She states there is been no medication changes. She states she is on clonidine chronically for anxiety. She states he was started on this at [facility] last time she was in detox. She is unsure if he refills this medication. She states that she just uses this because it is left over from her last visit she believes [facility] Medical History Anxiety Depression Smoker Home Medications aripiprazole 5 mg PO DAILY 12/30/20 [History Last Taken 01/13/21] clonidine HCl 0.1 mg PO DAILY 01/15/21 [History Last Taken 01/13/21] venlafaxine 150 mg PO BID 01/15/21 [History Last Taken 3 Days Ago ~01/12/21] Allergy/AdvReac Type Severity Reaction Status Date / Time No Known Allergies Allergy Verified 06/07/21 14:06 Family History (Updated 06/07/21 @ 17:[address] Kika Joaquin DO) Father Alcohol abuse Social History (Updated 06/07/21 @ 17:[address] Kika Joaquin DO) Smoking Status: Current every day smoker tobacco type: cigarettes quit status: not considering quitting alcohol intake: never substance use type: opiates and prescription drug ROS ROS ED Constitutional Constitutional ED: Denies chills, fever(s) or sweats Eyes Eyes: Denies blurry vision or diplopia ENT ENT ED: Denies rhinorrhea or sore throat Cardiovascular Cardiovascular: Denies chest pain or palpitations Respiratory/Chest Respiratory/Chest: Denies cough, dyspnea or sputum Gastrointestinal Gastrointestinal: Reports diarrhea and nausea; Denies abdominal pain or vomiting Genitourinary Genitourinary ED: Denies dysuria or urinary frequency Musculoskeletal Musculoskeletal: Denies arthralgias or myalgias Integumentary Denies Abrasions or rash Neurologic Neurologic: Denies headache(s) or paresthesias EXAM Physical Exam Const Vital Signs: 06/07/21 14:04 06/07/21 16:22 06/07/21 17:11 Temperature 97.6 F L 98.3 F Temperature Source Temporal Temporal Pulse Rate 94 82 60 Respiratory Rate 16 14 15 Blood Pressure 135/88 H 106/58 L 109/72 Blood Pressure Mean 103 74 84 Pulse Ox 97 97 97 Oxygen Delivery Method Room Air Room Air Room Air Positive well nourished General Appearance ED: NAD; Negative for pallor HEENT Denies moist mucous membranes atraumatic Eyes PERRL and EOMs intact bilaterally Resp normal respiratory effort and clear to auscultation bilaterally Cardio regular rate and regular rhythm Extremity General Extremety ED: Negative for edema or tenderness General Extremity: Negative for edema Neuro oriented x3 and CN's II-XII intact bilaterally Sensorium / Orientation: alert Psych mental status grossly normal and thought process normal Skin General Skin Exam: Negative for jaundice or pallor Lesions: no lesions Rashes: no rashes MDM MDM MDM Narrative Medical decision making narrative: 25-year-old female presenting for detox from fentanyl and Xanax. Patient states she has goosebumps, nausea, diarrhea. She feels generally unwell. Lab work drawn today is unremarkable. EtOH is negative. hCG is negative. Urine drug screen is pending. I did discuss this with the hospitalist and she was amenable to admitting the patient for detox. Impression: 1. Fentanyl abuse 2. Xanax abuse 3. Diarrhea Lab Data Attestation: I reviewed the patient's lab results. Labs: Laboratory Results - last 24 hr 06/07/21 06/07/21 06/07/21 15:17 15:17 15:17 WBC 9.2 RBC 4.43 Hgb 12.8 Hct 38.7 MCV 87.4 MCH 28.9 MCHC 33.1 RDW Std Deviation 39.2 RDW Coeff of Guero 12.1 Plt Count 351 MPV 9.9 Immature Gran % (Auto) 0.300 Neut % (Auto) 75.2 H Lymph % (Auto) 20.4 [place] % (Auto) 3.8 Eos % (Auto) 0.2 Baso % (Auto) 0.1 Absolute Neuts (auto) 6.9 Absolute Lymphs (auto) 1.87 Nucleated RBC % 0 Sodium 138 Potassium 3.6 Chloride 108 H Carbon Dioxide 22.0 Anion Gap 8 BUN 8 Creatinine 0.51 L Estim Creat Clear Calc 173.16 Est GFR (MDRD) Af Amer 186 Est GFR (MDRD) Non-Af 154 BUN/Creatinine Ratio 15.7 Glucose 98 Calcium 9.6 Total Bilirubin 0.40 AST 17 ALT 22 Alkaline Phosphatase 155 H Total Protein 8.5 H Albumin 3.6 Globulin 4.9 H Albumin/Globulin Ratio 0.7 L Serum , Qual Ethyl Alcohol < 3.0 06/07/21 15:17 WBC RBC Hgb Hct MCV MCH MCHC RDW Std Deviation RDW Coeff of Guero Plt Count MPV Immature Gran % (Auto) Neut % (Auto) Lymph % (Auto) [place] % (Auto) Eos % (Auto) Baso % (Auto) Absolute Neuts (auto) Absolute Lymphs (auto) Nucleated RBC % Sodium Potassium Chloride Carbon Dioxide Anion Gap BUN Creatinine Estim Creat Clear Calc Est GFR (MDRD) Af Amer Est GFR (MDRD) Non-Af BUN/Creatinine Ratio Glucose Calcium Total Bilirubin AST ALT Alkaline Phosphatase Total Protein Albumin Globulin Albumin/Globulin Ratio Serum , Qual NEGATIVE Ethyl Alcohol Discharge Plan Triage Chief Complaint: Substance Abuse ED Provider: Kane King Dx/Rx/DC Orders Primary Care Provider: Floridalma Woodard
[2021-06-07 15:27] LABS: Absolute Lymphocyte Count 1.87 X10^3/uL (0.83-4.51); Absolute Neutrophil Count 6.9 X10^3/uL (2.0-7.7); Basophil# 0.01 X10^3/uL; Basophil% 0.1 % (0-1); Eosinophil# 0.02 X10^3/uL; Eosinophils% 0.2 % (0-5); Hematocrit 38.7 % (37-47); Hemoglobin 12.8 g/dL (12.0-15.0); Lymphocyte # 1.87 X10^3/ul (0.83-4.51); Lymphocyte % 20.4 % (19-41); Mean Corp Hgb Conc 33.1 g/dL (32-36); Mean Corpuscular Hgb 28.9 pg (27.0-32.0); Mean Corpuscular Volume 87.4 fL (81-99); Mean Platelet Vol. 9.9 fl (6.2-12.0); Monocyte# 0.35 X10^3/uL; Monocyte% 3.8 % (0-10); NRBC Flagged by Analyzer 0 % (0-5); Neutrophil # 6.87 X10^3/uL (2.7-7.7); Neutrophil % 75.2 % (47-70); Platelet Count 351 K/mm3 (150-450); RBC Distribution Width CV 12.1 % (11.6-14.6); RBC Distribution Width SD 39.2 fl (35.1-43.9); Red Blood Count 4.43 M/mm3 (4.2-5.4); White Blood Count 9.2 K/mm3 (4.4-11.0)
[2021-06-07 15:44] LABS: ALB/GLOB Ratio 0.7 RATIO (0.9-2.4); AST(SGOT) 17 U/L (15-37); Alanine Aminotransfer ALT/SGPT 22 U/L (13-56); Albumin, Serum 3.6 g/dL (3.2-5.0); Alkaline Phosphatase 155 U/L (45-117); Anion Gap 8 (5-15); BUN 8 mg/dL (7-18); BUN/Creat Ratio 15.7 RATIO (10-20); Calcium,Total 9.6 mg/dL (8.5-10.1); Chloride 108 mmol/L (98-107); Creatinine, Serum 0.51 mg/dL (0.55-1.02); EST Glomerular Filtration Rate 154 mL/min (>60); Est Glom Filt Rate - Afr Amer 186 mL/min (>60); Estimated Creatinine Clearance 173.16 ml/min; Globulin 4.9 g/dL (2.2-4.2); Glucose 98 mg/dL (74-106); Internal QC Validated? YES +Cl - CLEAR BKGD; Potassium 3.6 mmol/L (3.5-5.1); Pregnancy, Serum, hCG Quali. NEGATIVE Negative; Protein, Total 8.5 g/dL (6.4-8.2); Sodium Level 138 mmol/L (136-145)
[2021-06-07] MEDS: Ondansetron ODT 4 MG Tablet PO (15:50)
[2021-06-07 16:03] LABS: Alcohol, Blood (Medical)-Serum < 3.0 mg/dL
[2021-06-07 16:22] VITALS: BP 106/58; PULSE 82; RESP 14; O2SAT 97
[2021-06-07 17:11] VITALS: BP 109/72; PULSE 60; RESP 15; TEMP 36.8; O2SAT 97
--- NOTE | 2021-06-07 17:12 | HP.PCM.HOS_ITS ---
HPI - General General Date of Admission: 06/07/21 Date of Service: 06/07/21 Chief Complaint: Acute opiate withdrawal HPI Narrative YULIA BRADY, is a 25 F who presented to the emergency department [facility] on 06/07/2021 requesting detox from opiates and having symptoms consistent with acute withdrawal. The patient last use was 2 days ago. She states she has been using 1 to 3 g of fentanyl daily. She also uses street Xanax intermittently to having fentanyl to help with her withdrawal symptoms. She has been detox previously here about 1 year ago although per our documentation she was detoxed here in January 2021. She denies any alcohol use. She does use tobacco regularly approximately 1 pack/day. At this time she is having piloerection intermittently with diarrhea and nausea, chills and intermittent diaphoresis. She admits to having history of anxiety and depression and takes medications for this at baseline. We will admit her to [facility] surgical floor and initiate opiate detox. [facility] Medical History Anxiety Depression Smoker Home Medications aripiprazole 5 mg PO DAILY 12/30/20 [History Last Taken 01/13/21] clonidine HCl 0.1 mg PO DAILY 01/15/21 [History Last Taken 01/13/21] venlafaxine 150 mg PO BID 01/15/21 [History Last Taken 3 Days Ago ~01/12/21] Allergy/AdvReac Type Severity Reaction Status Date / Time No Known Allergies Allergy Verified 06/07/21 14:06 Family History (Updated 06/07/21 @ 17:[address] Kika Joaquin DO) Father Alcohol abuse Social History (Updated 06/07/21 @ 17:[address] Kika Joaquin DO) Smoking Status: Current every day smoker tobacco type: cigarettes quit status: not considering quitting alcohol intake: never substance use type: opiates and prescription drug ROS Constitutional Constitutional: Reports chills and malaise; Denies anorexia, change in weight, fatigue, fever(s), night sweats, weakness or other Eyes Eyes: Denies blurry vision, change in eye color, change in vision, discharge from eye(s), double vision, erythema, eye pain, loss of vision or other ENT HEENT: Denies abnormal hearing, dysphagia, ear pain, epistaxis, headache(s), hearing loss, nasal congestion, nasal discharge, post nasal drip, sinus pressure, sore throat or other Cardiovascular Cardiovascular: Denies chest pain, claudication, dyspnea on exertion, edema, lightheadedness, orthopnea, palpitations, paroxysmal nocturnal dyspnea, rapid heart rate, syncope or other Respiratory/Chest Respiratory/Chest: Denies cough, dyspnea, excessive phlegm production, hemoptysis, productive cough, shortness of breath at rest, shortness of breath with exertion, wheezing or other Gastrointestinal Gastrointestinal: Reports diarrhea, loose stools and nausea Genitourinary Genitourinary: Denies burning urination, difficulty urinating, dysuria, hematuria, nocturia, urinary frequency, urinary hesitancy, urinary incontinence, urinary urgency or other Musculoskeletal Musculoskeletal: Reports myalgias; Denies arthralgias, back pain, joint pain, joint stiffness, joint swelling, neck pain or other Neurologic Neurologic: Denies abnormal gait, abnormal speech, confusion, disequilibrium, dizziness, focal weakness, headache(s), numbness, paresthesias, seizure-like activity, seizures, syncope, tingling, tremor(s) or other Psychiatric Psychiatric: Reports anxiety and depression; Denies homicidal ideation, suicidal ideation or other Endocrine Endocrinology: Denies change in body appearance, cold intolerance, excessive sweating, heat intolerance, polydipsia, polyuria or other Hematologic/Lymphatic Hematologic/Lymphatic: Denies anemia, easy bleeding, easy bruising, lymphadenopathy or other Allergic/Immunologic Allergic/Immunologic: Denies rhinitis, hives, eczemia, asthma or other Vital Signs Vital Signs Vital Signs: 06/07/21 14:04 06/07/21 16:22 Temperature 97.6 F L Temperature Source Temporal Pulse Rate 94 82 Respiratory Rate 16 14 Blood Pressure 135/88 H 106/58 L Blood Pressure Mean 103 74 Pulse Ox 97 97 Oxygen Delivery Method Room Air Room Air Weight Weight: 94 kg Body Mass Index (BMI) 30.6 Physical Exam Const alert, oriented x3 and no apparent distress Constitutional Narrative: Obese, Young white female lying in a bed in the emergency department, multiple covers, appears nontoxic and in no acute distress General Appearance: cooperative HEENT normocephalic, head/scalp atraumatic, hearing grossly normal bilaterally, moist oral mucous membranes and dentition normal HEENT Narrative: Mallampati 2, no thrush, good dentition Eyes PERRL, EOMs intact bilaterally and conjunctivae normal Neck no lymphadenopathy, supple and no JVD Neck Narrative: Trachea midline, no thyromegaly noted Resp normal respiratory effort, no retractions, no use of accessory muscles and clear to auscultation bilaterally Auscultation: Negative for crackles, rales, rhonchi or wheezes Cardio regular rate, regular rhythm, S1 normal heart sound, S2 normal heart sound, no murmurs, no rub, no gallops, no clicks and no JVD GI normal to inspection, nondistended, normoactive bowel sounds, soft to palpation, non-tender and non-distended Extremity no clubbing, cyanosis or edema Peripheral Pulses: Yes pulses 2+ throughout Skin no rashes or lesions noted, no wounds, skin turgor normal, no jaundice, no petechiae and no mottling Skin Narrative: Track cazares noted Neuro oriented x3, CN's II-XII intact bilaterally and moves all extremities Sensorium / Orientation: awake, alert, oriented to person, oriented to place and oriented to time Speech: speech normal Motor Exam: strength 5/5 throughout Psych Mood & Affect: anxious Results Lab / Micro Data Attestation: I reviewed the patient's lab results. Result Diagrams: 06/07/21 15:17 06/07/21 15:17 Labs: Laboratory Results - last 24 hr 06/07/21 15:17: WBC 9.2, RBC 4.43, Hgb 12.8, Hct 38.7, MCV 87.4, MCH 28.9, MCHC 33.1, RDW Std Deviation 39.2, RDW Coeff of Guero 12.1, Plt Count 351, MPV 9.9, Immature Gran % (Auto) 0.300, Neut % (Auto) 75.2 H, Lymph % (Auto) 20.4, [place] % (Auto) 3.8, Eos % (Auto) 0.2, Baso % (Auto) 0.1, Absolute Neuts (auto) 6.9, Abs olute Lymphs (auto) 1.87, Nucleated RBC % 0 06/07/21 15:17: Sodium 138, Potassium 3.6, Chloride 108 H, Carbon Dioxide 22.0, Anion Gap 8, BUN 8, Creatinine 0.51 L, Estim Creat Clear Calc 173.16, Est GFR (MDRD) Af Amer 186, Est GFR (MDRD) Non-Af 154, BUN/Creatinine Ratio 15.7, Glucose 98, Calcium 9.6, Total Bilirubin 0.40, AST 17, ALT 22, Alkaline Phosphatase 155 H, Total Protein 8.5 H, Albumin 3.6, Globulin 4.9 H, Albumin/Globulin Ratio 0.7 L 06/07/21 15:17: Ethyl Alcohol < 3.0 06/07/21 15:17: Serum , Qual NEGATIVE Assessment & Plan Assessment/Plan (1) Opiate withdrawal: (2) Opiate addiction: (3) Nicotine use: (4) IVDU (intravenous drug user): PLAN: Acute opiate withdrawal -Start buprenorphine taper -Start supportive medications -Patient uses 1 to 3 g of IV fentanyl daily with last use being 2 days prior to presentation -[facility] consultation Polysubstance abuse -Patient also abuses Xanax that she buys off the streets to help suppress her withdrawal symptoms when she is unable to get opiates -Last use was approximately 2 days ago -No current signs of benzo withdrawal -Monitor -Check HIV and hepatitis studies Anxiety/depression -Continue Effexor and Abilify Tobacco abuse -Nicotine patch -Recommend cessation Obesity -Recommend weight loss DVT prophylaxis -Early ambulation protocol -Low risk CODE STATUS -Full code Charges/Coding Visit Charges Inpatient E&M: 29185 Init Hosp L3
--- NOTE | 2021-06-07 17:54 | CM.ED ---
SOCIAL WORK Referral Source: Self-referral Reason for Consult: Substance Abuse- requesting detox from fentanyl and Xanax Met with patient in room. Introduced role and reason for referral. Patient completed [facility] agreement with nursing. Patient voices no questions or concerns regarding detox. Patient hoping to complete residential treatment after detox. Encouragement and support provided. Call to Treatment NavigatorIsamar to update on patient's admission to [facility]. Mark to be in tomorrow to meet with patient. Plan: JEFE Boone MSW, [employer]
[2021-06-07 18:01] LABS: Hepatitis B Surface Antigen Non-Reactive (Nonreactive)
[2021-06-07 18:26] VITALS: PULSE 81; RESP 14; O2SAT 97
[2021-06-07 19:40] LABS: Amphetamine Urine VISTA NEGATIVE (<1000 ng/mL); Barbiturate Urine VISTA NEGATIVE (< 200 ng/mL); Benzodiazepine Urine VISTA NEGATIVE (< 200 ng/mL); Cocaine Urine VISTA NEGATIVE (< 300 ng/mL); Ecstacy Urine VISTA POSITIVE (< 500 ng/mL); Methadone Urine VISTA NEGATIVE (< 300 ng/mL); PCP Urine VISTA NEGATIVE (< 25 ng/mL); THC Urine VISTA POSITIVE (< 50 ng/mL); Vista UDS pH Range 6
[2021-06-07 20:10] VITALS: BMI 29.3
[2021-06-07] MEDS: Venlafaxine XR 150 MG Capsule PO (20:28)
[2021-06-07] MEDS: cloNIDine HCl 0.1 MG Tablet PO (20:28)
[2021-06-07] MEDS: Gabapentin 300 MG Capsule PO (20:29)
[2021-06-07] MEDS: Methocarbamol 750 MG Tablet 1500 MG PO (20:29)
[2021-06-07 20:30] VITALS: BP 102/72; PULSE 75; RESP 16; TEMP 36.9; O2SAT 96
[2021-06-08] VITALS (8 sets, daily range): BP systolic 90–121; BP diastolic 41–81; PULSE 54–72; RESP 16–18; TEMP 36.4–37; O2SAT 95–98
[2021-06-08] MEDS: traZODone 100 MG Tablet PO ×2 (00:27→20:26)
--- NOTE | 2021-06-08 01:11 | PCS.PANDOC ---
Addendum entered by Keara Busby 06/08/21 01:17: PANDEMIC DOCUMENTATION INITIATED: Date: 06/07/2021 Time: 1934 Original Note: PANDEMIC DOCUMENTATION INITIATED: Date: 06/08/2021 Time: 1934
[2021-06-08 09:32] LABS: HIV - WCH Non-Reactive (Nonreactive); Hepatitis B Surface Antibody Reactive
[2021-06-08 09:34] LABS: Hepatitis C Antibody Reactive (Nonreactive)
[2021-06-08] MEDS: ARIPiprazole 5 MG Tablet PO (09:39)
[2021-06-08] MEDS: Venlafaxine XR 150 MG Capsule PO ×2 (09:39→20:27)
[2021-06-08] MEDS: Methocarbamol 750 MG Tablet 1500 MG PO ×2 (11:33→20:26)
--- NOTE | 2021-06-08 11:34 | ADDICTION ---
TW met with PT to complete ASAM, AUDIT, DUDIT, and MSE. Pt stayed laying down in bed, facing away from this clinician. Pt stated that she is hopeful to complete residential treatment upon release from detox. Pt stated she left [facility] previously this year because I just wasn't ready. TW inquired what changed. Pt stated My son, I want to be there for him and be a good mom. I'm sick and tired of being sick and tired. TW passed the residential referral on and is awaiting response on acceptance or denial.
--- NOTE | 2021-06-08 12:41 | PN.HOSP_ITS ---
Subjective Subjective Doing well, no issues overnight. Objective Data Objective Data Vital Signs: Vital Signs Temp Pulse Resp BP Pulse Ox 97.6 F L 61 18 90/52 L 97 06/08/21 11:29 06/08/21 11:29 06/08/21 11:29 06/08/21 11:29 06/08/21 11:29 Oxygen Delivery Method Room Air Weight: 198 lb 10.184 oz Body Mass Index (BMI) 29.3 Lab / Micro Data Result Diagrams: 06/07/21 15:17 06/07/21 15:17 Labs: Laboratory Results - last 24 hr 06/07/21 15:17: WBC 9.2, RBC 4.43, Hgb 12.8, Hct 38.7, MCV 87.4, MCH 28.9, MCHC 33.1, RDW Std Deviation 39.2, RDW Coeff of Guero 12.1, Plt Count 351, MPV 9.9, Immature Gran % (Auto) 0.300, Neut % (Auto) 75.2 H, Lymph % (Auto) 20.4, [place] % (Auto) 3.8, Eos % (Auto) 0.2, Baso % (Auto) 0.1, Absolute Neuts (auto) 6.9, Absolute Lymphs (auto) 1.87, Nucleated RBC % 0 06/07/21 15:17: Sodium 138, Potassium 3.6, Chloride 108 H, Carbon Dioxide 22.0, Anion Gap 8, BUN 8, Creatinine 0.51 L, Estim Creat Clear Calc 173.16, Est GFR (MDRD) Af Amer 186, Est GFR (MDRD) Non-Af 154, BUN/Creatinine Ratio 15.7, Glucose 98, Calcium 9.6, Total Bilirubin 0.40, AST 17, ALT 22, Alkaline Phosphatase 155 H, Total Protein 8.5 H, Albumin 3.6, Globulin 4.9 H, Albumin/Globulin Ratio 0.7 L 06/07/21 15:17: Ethyl Alcohol < 3.0 06/07/21 15:17: Serum , Qual NEGATIVE 06/07/21 15:17: Hep Bs Antigen Non-Reactive 06/07/21 15:17: Hep Bs Antibody Reactive, Hepatitis C Antibody Reactive, HIV 1&2 Antibody Non-Reactive 06/07/21 19:15: Urine Opiates Screen NEGATIVE, Urine Methadone Screen NEGATIVE, Ur Barbiturates Screen NEGATIVE, Ur Phencyclidine Scrn NEGATIVE, Ur Amphetamines Screen NEGATIVE, U Methamphetamin-MDMA POSITIVE H, U Benzodiazepines Scrn NEGATIVE, Urine Cocaine Screen NEGATIVE, U Cannabinoids Screen POSITIVE H, Ur Drug Screen Comment Physical Exam Const alert, oriented x3 and no apparent distress General Appearance: cooperative HEENT normocephalic and moist oral mucous membranes Eyes PERRL, EOMs intact bilaterally and conjunctivae normal Neck supple and no JVD Resp normal respiratory effort, no retractions, no use of accessory muscles and clear to auscultation bilaterally Auscultation: Negative for crackles, rales, rhonchi or wheezes Cardio regular rate, regular rhythm, S1 normal heart sound, S2 normal heart sound and no murmurs GI soft to palpation, non-tender and non-distended; Negative for hepatosplenomegaly Extremity no clubbing, cyanosis or edema Skin no rashes or lesions noted Neuro no focal motor deficits and no sensory deficits noted Psych affect normal Appearance: appropriate Assessment & Plan Assessment/Plan (1) Opiate withdrawal: (2) Opiate addiction: (3) Nicotine use: (4) IVDU (intravenous drug user): PLAN: 1. Acute opiate withdrawal/polysubstance abuse/tobacco abuse -Hepatitis C panel is positive however she cannot receive treatment until she stops using IV drugs -Continue with the opiate withdrawal protocol -Follow-up with [facility] as an outpatient -No current signs of benzo withdrawal, will continue to monitor and treat for her opiate withdrawal -Discussed cessation, will place nicotine patch 2. Anxiety/depression -Continue with her home medications DVT: Ambulation Charges/Coding Visit Charges Inpatient E&M: 14659 Subs Hosp L2
[2021-06-09] VITALS (7 sets, daily range): BP systolic 110–127; BP diastolic 54–81; PULSE 62–84; RESP 16–18; TEMP 36.9–37.1; O2SAT 95–98
--- NOTE | 2021-06-09 09:55 | ADDICTION ---
Addendum entered by Connie Arboleda 06/09/21 10:43: Transportation will be with James Horta, peer cricket coach, at 12PM. Original Note: TW met with pt to do a residential screen. Pt was approved for [facility] and will be transported tomorrow 06/10/2021 at 1PM. Transportation provided by [employer].
[2021-06-09] MEDS: Venlafaxine XR 150 MG Capsule PO ×2 (10:23→21:50)
[2021-06-09] MEDS: ARIPiprazole 5 MG Tablet PO (10:23)
--- NOTE | 2021-06-09 12:17 | PCM.PN.HOSP ---
Subjective Subjective No issues overnight, tolerating the withdrawal protocol. Objective Data Objective Data Vital Signs: Vital Signs Temp Pulse Resp BP Pulse Ox 98.5 F 62 18 111/54 L 95 06/09/21 12:06/09/21 12:06/09/21 12:06/09/21 12:06/09/21 12:09 Oxygen Delivery Method Room Air Weight: 198 lb 10.184 oz Body Mass Index (BMI) 29.3 Intake & Output: Intake and Output for Last 24 Hours 06/08/21 06/09/21 06/10/21 03:59 03:59 03:59 Intake Total 480 / 480 360 / 360 Balance 480 / 480 360 / 360 Lab / Micro Data Result Diagrams: 06/07/21 15:17 06/07/21 15:17 Physical Exam Const alert, oriented x3 and no apparent distress General Appearance: cooperative HEENT normocephalic and moist oral mucous membranes Eyes PERRL, EOMs intact bilaterally and conjunctivae normal Neck supple and no JVD Resp normal respiratory effort, no retractions, no use of accessory muscles and clear to auscultation bilaterally Auscultation: Negative for crackles, rales, rhonchi or wheezes Cardio regular rate, regular rhythm, S1 normal heart sound, S2 normal heart sound and no murmurs GI soft to palpation, non-tender and non-distended; Negative for hepatosplenomegaly Extremity no clubbing, cyanosis or edema Skin no rashes or lesions noted Neuro no focal motor deficits and no sensory deficits noted Psych affect normal Appearance: appropriate Assessment & Plan Assessment/Plan (1) Opiate withdrawal: (2) Opiate addiction: (3) Nicotine use: (4) IVDU (intravenous drug user): PLAN: 1. Acute opiate withdrawal/polysubstance abuse/tobacco abuse -Hepatitis C panel is positive however she cannot receive treatment until she stops using IV drugs -Continue with the opiate withdrawal protocol -Follow-up with 180 as an outpatient -No current signs of benzo withdrawal, will continue to monitor and treat for her opiate withdrawal -Discussed cessation, will place nicotine patch 2. Anxiety/depression -Continue with her home medications DVT: Ambulation Charges/Coding Visit Charges Inpatient E&M: 61776 Subs Hosp L2
--- NOTE | 2021-06-09 15:48 | NURSING ---
IN TO TALK WITH PATIENT. patient verbalized stated she knows its again the physicians advise but she wants to leave. emotional support given to patient. discussed plan of care, plan of treatment, discussed anxiety and factors for anxiety. pt agreeable to try medication for anxiety and ambulating with mask to alleviate the feeling of being stuck in her room. pants socks and mask provided. emotional support given. at this point pt states wishes to stay. see mar. call light within reach.
[2021-06-09] MEDS: Gabapentin 300 MG Capsule PO (15:49)
[2021-06-09] MEDS: Methocarbamol 750 MG Tablet 1500 MG PO (18:14)
[2021-06-09] MEDS: traZODone 100 MG Tablet PO (21:50)
[2021-06-10 03:45] VITALS: BP 131/79; PULSE 60; RESP 16; TEMP 36.8; O2SAT 100
[2021-06-10] MEDS: Methocarbamol 750 MG Tablet 1500 MG PO (03:48)
--- NOTE | 2021-06-10 07:51 | PCM.DC ---
Discharge Instructions Diet Discharge Diet: No restrictions Activity Discharge Activity: Return to Normal Activity Dressing / Incision Call your doctor if you observe: Fever of 101 or Higher, Shortness of breath, Dizziness, Swelling in the ankles, Chest pain and Increased palpitations (irregular heartbeat) Follow Up Care Test Results: Test results from this visit will be discussed in further detail at your follow-up appointment, if applicable. Discharge Plan Admission Admit Date/Time: 06/07/21 17:12 Attending Provider: Joseph Austin Primary Care Provider: Floridalma Woodard Discharge Orders/Prescriptions Prescriptions: Continued aripiprazole 5 MG tablet 5 mg PO DAILY RF: 0 clonidine HCl 0.1 MG tablet 0.1 mg PO DAILY RF: 0 venlafaxine 150 MG capsule,extended release 24hr 150 mg PO BID RF: 0 Referrals / Follow Up: Floridalma Woodard DO [Primary Care Provider] - Disposition Disposition (needs filled in before D/C Order can be placed): Home, Self Care
--- NOTE | 2021-06-10 07:53 | DS.PCM_ITS ---
Providers Date of Admission: 06/07/21 Primary Care Physician: Dr. Floridalma Woodard, DO Reason For Visit: OPIATE DETOX Diagnosis Discharge Diagnosis (1) Opiate withdrawal: Status: Acute Code(s): F11.23 - Opioid dependence with withdrawal (2) Opiate addiction: Status: Chronic Code(s): F11.20 - Opioid dependence, uncomplicated (3) Nicotine use: Status: Chronic Code(s): Z72.0 - Tobacco use (4) IVDU (intravenous drug user): Status: Acute Code(s): F19.90 - Other psychoactive substance use, unspecified, uncomplicated Medications at Discharge Home Medications aripiprazole 5 mg PO DAILY 12/30/20 clonidine HCl 0.1 mg PO DAILY 01/15/21 venlafaxine 150 mg PO BID 01/15/21 Hospital Course Operations None Procedures None Summary of Care Provided Minutes Spent on Discharge: 37 Hospital Course: Per HPI: YULIA BRADY, is a 25 F who presented to the emergency department [facility] on 06/07/2021 requesting detox from opiates and having symptoms consistent with acute withdrawal. The patient last use was 2 days ago. She states she has been using 1 to 3 g of fentanyl daily. She also uses street Xanax intermittently to having fentanyl to help with her withdrawal symptoms. She has been detox previously here about 1 year ago although per our documentation she was detoxed here in January 2021. She denies any alcohol use. She does use tobacco regularly approximately 1 pack/day. At this time she is having piloerection intermittently with diarrhea and nausea, chills and intermittent diaphoresis. She admits to having history of anxiety and depression and takes medications for this at baseline. We will admit her to med surgical floor and initiate opiate detox. Hospital Course: 1. Acute opiate withdrawal with polysubstance abuse and tobacco abu se/anxiety/[id number]-[id number]-old female presented to hospital requesting detox from opiates. She uses about 1 to 3 g of fentanyl daily as well as illicit Xanax as needed. She is not going through any benzodiazepine withdrawal. She has been receiving the adjuncts but has been refusing the Subutex to try to wean her off the opiates. She was evaluated by [facility] and has been [facility] and she will be transported this afternoon by them. Of note she also does come back reactive for hepatitis C and she cannot get treatment until she is clean from using any IV drugs. Discussed with her the plan for discharge today and she expressed understanding of the risk benefits of going and would like to go today. Physical Exam Narrative Const alert, oriented x3 and no apparent distress General Appearance: cooperative HEENT normocephalic and moist oral mucous membranes Eyes PERRL, EOMs intact bilaterally and conjunctivae normal Neck supple and no JVD Resp normal respiratory effort, no retractions, no use of accessory muscles and clear to auscultation bilaterally Auscultation: Negative for crackles, rales, rhonchi or wheezes Cardio regular rate, regular rhythm, S1 normal heart sound, S2 normal heart sound and no murmurs GI soft to palpation, non-tender and non-distended; Negative for hepatosplenomegaly Extremity no clubbing, cyanosis or edema Skin no rashes or lesions noted Neuro no focal motor deficits and no sensory deficits noted Psych affect normal Appearance: appropriate Weight / BMI Weight Weight: 198 lb 10.184 oz Body Mass Index (BMI) 29.3 ABG / Lab / Microbiology Data Result Diagrams: 06/07/21 15:17 06/07/21 15:17 D/C Instructions Discharge Diet: No restrictions Call your doctor if you observe: Fever of 101 or Higher, Shortness of breath, Dizziness, Swelling in the ankles, Chest pain and Increased palpitations (irregular heartbeat) Meaningful Use Info Meaningful Use Diagnoses (Choose all that apply): None applicable Discharge Plan Admission Admit Date/Time: 06/07/21 17:12 Attending Provider: Joseph Austin Primary Care Provider: Floridalma Woodard Discharge Orders/Prescriptions Prescriptions: Continued aripiprazole 5 MG tablet 5 mg PO DAILY RF: 0 clonidine HCl 0.1 MG tablet 0.1 mg PO DAILY RF: 0 venlafaxine 150 MG capsule,extended release 24hr 150 mg PO BID RF: 0 Referrals / Follow Up: Floridalma Woodard DO [Primary Care Provider] - Disposition Disposition (needs filled in before D/C Order can be placed): Home, Self Care Charges/Coding Visit Charges Inpatient E&M: 81491 Disch Hosp
[2021-06-10 08:14] VITALS: O2SAT 95
[2021-06-10 09:13] VITALS: BP 132/83; PULSE 109; RESP 16; TEMP 37.3; O2SAT 97
[2021-06-10] MEDS: Venlafaxine XR 150 MG Capsule PO (09:22)
[2021-06-10] MEDS: Gabapentin 300 MG Capsule PO (09:23)
[2021-06-10] MEDS: Dicyclomine 10 MG Capsule 20 MG PO (09:23)
[2021-06-10] MEDS: ARIPiprazole 5 MG Tablet PO (09:23)
== END 2021-06-10 12:10 | disposition home or self-care (01) | DRG 773 ==
LOC: ED 16:15 → MS3 17:17
PROVIDERS: Admitting Provider Internal Medicine; Emergency Provider Student in an Organized Health Care Education/Training Program; Visit Provider Family Medicine
DX: F11.23 Opioid dependence with withdrawal (principal); F32.9 Major depressive disorder, single episode, unspecified; F41.9 Anxiety disorder, unspecified; F17.210 Nicotine dependence, cigarettes, uncomplicated; F13.10 Sedative, hypnotic or anxiolytic abuse, uncomplicated; Z79.899 Other long term (current) drug therapy; E66.9 Obesity, unspecified; Z68.30 Body mass index [BMI] 30.0-30.9, adult; B19.20 Unspecified viral hepatitis C without hepatic coma
CPT/HCPCS: 80053; 80307; 82077; 84703; 85025; 86703; 86706; 86803; 87340; 99283; 99406

== ENCOUNTER 2021-06-15 10:43 | Emergency (ER) | payer MEDICAID, SELFPAY ==
[2021-06-15 10:43] VITALS: BP 145/102; PULSE 125; RESP 18; TEMP 36.2; O2SAT 97; BMI 29.5
--- NOTE | 2021-06-15 11:13 | EX.ED.SAOD ---
HPI History of Present Illness Chief Complaint: Substance Abuse Informant: patient Onset/Context/Timing Onset: Days Context: Gradual Onset Timing: Continuous Current Severity: Mild Maximum Severity: Mild Associated Symptoms Associated Symptoms: Positive for vomiting* and diarrhea*; Negative for fever*, rash*, seizure, tremor and palpatations Narrative Narrative: 25-year-old female history of iv heroin and fentanyl abuse. Last used June 06. Last week she was hospitalized Monday through for detox. States she is still going through withdrawal symptoms. States she still having nausea, vomiting and diarrhea. Also having muscle cramping. No fever or chills. Prior similar symptoms: Yes Recent Illness/Hospitalization: No PFSH PFSH Medical History Anxiety Depression Smoker Home Medications aripiprazole 5 mg PO DAILY 12/30/20 [History Last Taken 01/13/21] clonidine HCl 0.1 mg PO DAILY 01/15/21 [History Last Taken 01/13/21] venlafaxine 150 mg PO BID 01/15/21 [History Last Taken 3 Days Ago ~01/12/21] ondansetron 4 mg PO Q8H PRN 4 Days tab 06/15/21 [Rx Last Taken Unknown] potassium chloride 20 meq PO BID 7 Days #14 tab 06/15/21 [Rx Last Taken Unknown] Allergy/AdvReac Type Severity Reaction Status Date / Time No Known Allergies Allergy Verified 06/15/21 10:43 Family History Father Alcohol abuse Social History Smoking Status: Current every day smoker tobacco type: cigarettes quit status: not considering quitting alcohol intake: never substance use type: opiates and prescription drug ROS ROS ED ROS Narrative Withdrawal symptoms with muscle cramping diarrhea nausea, vomiting and diarrhea. Review of Systems ROS Unobtainable: Denies due to encephalopathy Constitutional Constitutional ED: Denies chills or fever(s) Eyes Eyes: Denies change in vision ENT ENT ED: Denies ear pain or sore throat Cardiovascular Cardiovascular: Denies chest pain Respiratory/Chest Respiratory/Chest: Denies cough, dyspnea or sputum Gastrointestinal Gastrointestinal: Reports diarrhea, nausea and vomiting; Denies abdominal pain Genitourinary Genitourinary ED: Denies dysuria Musculoskeletal Musculoskeletal: Reports myalgias Integumentary Denies rash Neurologic Neurologic: Denies headache(s) Psychiatric Psychiatric: Denies depression Endocrine Endocrinology: Denies polyuria Hematologic/Lymphatic Hematologic/Lymphatic: Denies easy bruising Allergic/Immunologic Allergic/Immunologic ED: Denies urticaria EXAM Physical Exam Narrative Exam Narrative: Young female no acute distress vital signs stable. H EENT exam unremarkable. Neck nontender. Lungs clear to auscultation bilaterally. Heart tachycardic no murmur. Abdomen soft nontender normal bowel sounds no peritoneal signs. Moving all 4 extremities. Calves nontender without edema or cords. Neurologically she is awake alert with no focal motor deficits. Const Vital Signs: 06/15/21 10:43 Temperature 97.1 F L Temperature Source Temporal Pulse Rate 125 H Respiratory Rate 18 Blood Pressure 145/102 H Blood Pressure Mean 116 Pulse Ox 97 Oxygen Delivery Method Room Air Positive well nourished and well developed; Negative for obese, cachectic, contractures or unkempt General Appearance ED: well developed and NAD; Negative for unkempt, cachectic, contractures or pallor Nutritional Appearance: Negative for cachectic or obese HEENT Reports moist mucous membranes atraumatic; Negative for trauma or tenderness Eyes PERRL and EOMs intact bilaterally Neck no lymphadenopathy, supple and no JVD Thyroid: Negative for tender Lymph Lymphatic: no lymphadenopathy noted; Negative for lymphadenopathy Chest Wall inspection of chest normal and palpation of chest normal Resp normal respiratory effort and clear to auscultation bilaterally Auscultation: Negative for rales, rhonchi, wheezes or other Cardio regular rhythm, S1 normal heart sound, S2 normal heart sound and no murmurs Rate: tachycardic GI soft to palpation, non-tender, non-distended and no masses Inspection: Negative for abdominal distention Palpation: Negative for tender, guarding or rigid Back/Spine no CVA tenderness General Back: Negative for CVA tenderness Extremity Extremity Narrative: Track cazares both upper extremities. No cellulitis. No abscesses. General Extremety ED: Negative for edema or tenderness General Extremity: Negative for edema Neuro oriented x3 Sensorium / Orientation: alert, oriented to person, oriented to place and oriented to time Motor Exam: strength 5/5 throughout Psych mental status grossly normal Appearance: Negative for unkempt Skin General Skin Exam: Negative for jaundice or pallor Lesions: no lesions Rashes: no rashes MDM MDM MDM Narrative Medical decision making narrative: Patient with withdrawal symptoms. To be treated with IV fluids, Zofran and Toradol and reassess. If she is feeling better she prefers not to be admitted. Repeat exam at 1:15 PM patient looks clinically much better says she feels better and feels controlled being discharged home. She will be discharged on Zofran and oral potassium. She knows return if worse. Lab Data Attestation: I reviewed the patient's lab results. Lab results narrative: Electrolytes unremarkable except potassium 2.9 most likely from the vomiting and diarrhea. Normal creatinine. Normal gap. Labs: Laboratory Results - last 24 hr 06/15/21 11:30 Sodium 137 Potassium 2.9 L Chloride 105 Carbon Dioxide 21.0 Anion Gap 11 BUN 9 Creatinine 0.65 Estim Creat Clear Calc 135.87 Est GFR (MDRD) Af Amer 139 Est GFR (MDRD) Non-Af 115 BUN/Creatinine Ratio 13.8 Glucose 116 H Calcium 10.5 H Discharge Plan Triage Chief Complaint: Substance Abuse ED Provider: Norberto Simmons Dx/Rx/DC Orders Clinical Impression: Opiate withdrawal, Acute hypokalemia, Nausea vomiting and diarrhea Instructions: ED Hypokalemia, ED Opioid Withdrawal, ED Vomiting (Adult) Prescriptions: New ondansetron 4 mg tablet,disintegrating 4 mg PO Q8H PRN (Reason: nausea and vomiting) 4 Days RF: 0 potassium chloride 20 mEq tablet,ER particles/crystals 20 meq PO BID 7 Days Qty: 14 RF: 0 No Action aripiprazole 5 MG tablet 5 mg PO DAILY RF: 0 clonidine HCl 0.1 MG tablet 0.1 mg PO DAILY RF: 0 venlafaxine 150 MG capsule,extended release 24hr 150 mg PO BID RF: 0 Primary Care Provider: Floridalma Woodard Referrals: Floridalma Woodard, [Primary Care Provider] - 3-5 Days if not improving Activity Restrictions/Additional Instructions: Plenty of fluids and rest. Your potassium is low due to the vomiting and diarrhea cerebral you for potassium to be taken twice daily. Zofran as needed for nausea which you may swallow or let it dissolve under your tongue. Follow-up if not improving return if worse. Disposition Disposition: Home, Self Care
[2021-06-15] MEDS: Ketorolac 30 MG/ML Syringe IV (11:39)
[2021-06-15] MEDS: 0.9% Normal Saline 1,000 ML 1000 ML IV (11:39)
[2021-06-15] MEDS: Ondansetron 4 MG/2 ML Vial IV (11:39)
[2021-06-15 11:52] LABS: Anion Gap 11 (5-15); BUN 9 mg/dL (7-18); BUN/Creat Ratio 13.8 RATIO (10-20); Calcium,Total 10.5 mg/dL (8.5-10.1); Chloride 105 mmol/L (98-107); Creatinine, Serum 0.65 mg/dL (0.55-1.02); EST Glomerular Filtration Rate 115 mL/min (>60); Est Glom Filt Rate - Afr Amer 139 mL/min (>60); Estimated Creatinine Clearance 135.87 ml/min; Glucose 116 mg/dL (74-106); Potassium 2.9 mmol/L (3.5-5.1); Sodium Level 137 mmol/L (136-145)
--- NOTE | 2021-06-15 12:57 | CM.ED ---
SOCIAL WORK Reason for Consult: Substance Abuse Met with patient in room. Patient completed [facility] and discharged on 06/10/21 to residential treatment through [facility]. Patient presents to ER today for continued withdrawal symptoms. Emotional support provided. Patient will return to residential treatment. Yamilka Boone, BOOK REPAIRER, HEALTH WORKER
== END 2021-06-15 13:33 | disposition home or self-care (01) ==
PROVIDERS: Emergency Provider Emergency Medicine
DX: F11.23 Opioid dependence with withdrawal (principal); E87.6 Hypokalemia; R11.2 Nausea with vomiting, unspecified; R19.7 Diarrhea, unspecified; F17.210 Nicotine dependence, cigarettes, uncomplicated
CPT/HCPCS: 80048; 96361; 96374; 96375; 99284; J7030; A4216; J2405

== ENCOUNTER 2021-07-06 08:47 | Inpatient (IN) | payer MEDICAID, SELFPAY ==
[2021-07-06] VITALS (9 sets, daily range): BP systolic 98–122; BP diastolic 44–82; PULSE 80–116; RESP 16–18; TEMP 36.3–38.4; O2SAT 95–99; BMI 28.4; BMI 26.1
[2021-07-06] MEDS: Ondansetron ODT 4 MG Tablet PO (09:22)
[2021-07-06] MEDS: Dicyclomine 10 MG Capsule 20 MG PO (09:22)
[2021-07-06 09:48] LABS: Absolute Lymphocyte Count 1.62 X10^3/uL (0.83-4.51); Absolute Neutrophil Count 7.9 X10^3/uL (2.0-7.7); Basophil# 0.02 X10^3/uL; Basophil% 0.2 % (0-1); Eosinophil# 0.03 X10^3/uL; Eosinophils% 0.3 % (0-5); Hematocrit 37.6 % (37-47); Hemoglobin 12.4 g/dL (12.0-15.0); Lymphocyte # 1.62 X10^3/ul (0.83-4.51); Lymphocyte % 15.2 % (19-41); Mean Corpuscular Hgb 28.6 pg (27.0-32.0); Mean Corpuscular Volume 86.6 fL (81-99); Mean Platelet Vol. 10.8 fl (6.2-12.0); Monocyte# 0.99 X10^3/uL; Monocyte% 9.3 % (0-10); NRBC Flagged by Analyzer 0 % (0-5); Neutrophil # 7.94 X10^3/uL (2.7-7.7); Neutrophil % 74.7 % (47-70); Platelet Count 253 K/mm3 (150-450); RBC Distribution Width CV 12.6 % (11.6-14.6); RBC Distribution Width SD 39.8 fl (35.1-43.9); Red Blood Count 4.34 M/mm3 (4.2-5.4); White Blood Count 10.6 K/mm3 (4.4-11.0)
[2021-07-06 10:06] LABS: ALB/GLOB Ratio 0.6 RATIO (0.9-2.4); AST(SGOT) 8 U/L (15-37); Alanine Aminotransfer ALT/SGPT 17 U/L (13-56); Albumin, Serum 2.9 g/dL (3.2-5.0); Alkaline Phosphatase 131 U/L (45-117); Anion Gap 11 (5-15); BUN 3 mg/dL (7-18); BUN/Creat Ratio 6.3 RATIO (10-20); Calcium,Total 9.2 mg/dL (8.5-10.1); Chloride 104 mmol/L (98-107); Creatinine, Serum 0.48 mg/dL (0.55-1.02); EST Glomerular Filtration Rate 166 mL/min (>60); Est Glom Filt Rate - Afr Amer 201 mL/min (>60); Estimated Creatinine Clearance 190.38 ml/min; Globulin 5.2 g/dL (2.2-4.2); Glucose 135 mg/dL (74-106); Potassium 3.3 mmol/L (3.5-5.1); Protein, Total 8.1 g/dL (6.4-8.2); Sodium Level 138 mmol/L (136-145)
--- NOTE | 2021-07-06 10:08 | EDS_ITS ---
HPI History of Present Illness Chief Complaint: Substance Abuse Informant: patient Narrative Narrative: Patient is a 25-year-old female with history of polysubstance abuse presenting for detox. Patient states she has been using heroin for the past 9 months and would like to go through detox. She notes that about 2 months ago she was seen for inpatient detox [facility] and [facility] she started using again. Patient states she injection uses 1 to 2 g a day. She last used 2 days ago. She is now having diarrhea, nausea, vomiting, skin crawling sensation and feeling like she is in withdrawal. Patient does have history of hepatitis C. She has Mirena is not concerned for . She denies any other complaints at this time. She denies any other drug use or alcohol use. PFSH PFSH Medical History Anxiety Depression IVDU (intravenous drug user) Nicotine use Opiate addiction Smoker Home Medications aripiprazole 5 mg PO DAILY 12/30/20 [History Last Taken 01/13/21] venlafaxine 150 mg PO BID 01/15/21 [History Last Taken 3 Days Ago ~01/12/21] Allergy/AdvReac Type Severity Reaction Status Date / Time No Known Allergies Allergy Verified 07/06/21 09:21 Family History Father Alcohol abuse Social History Smoking Status: Current every day smoker tobacco type: cigarettes quit status: not considering quitting alcohol intake: never substance use type: opiates and prescription drug ROS ROS ED Constitutional Constitutional ED: Reports chills, malaise and sweats; Denies fever(s) Eyes Eyes: Denies blurry vision or loss of vision ENT ENT ED: Denies rhinorrhea or sore throat Cardiovascular Cardiovascular: Denies chest pain or dizziness Respiratory/Chest Respiratory/Chest: Denies cough or dyspnea Gastrointestinal Gastrointestinal: Reports abdominal pain, diarrhea, nausea and vomiting Genitourinary Genitourinary ED: Reports urinary frequency; Denies dysuria or hematuria Musculoskeletal Musculoskeletal: Reports myalgias; Denies arthralgias Integumentary Denies rash or wounds Neurologic Neurologic: Denies focal weakness, headache(s) or weakness Psychiatric Psychiatric: Denies anxiety or behavioral changes EXAM Physical Exam Const Vital Signs: 07/06/21 08:48 Temperature 97.4 F L Temperature Source Temporal Pulse Rate 116 H Respiratory Rate 16 Blood Pressure 120/82 H Blood Pressure Mean 94 Pulse Ox 96 Oxygen Delivery Method Room Air Positive well nourished and well developed General Appearance ED: well developed HEENT Reports moist mucous membranes atraumatic Eyes PERRL and EOMs intact bilaterally Neck no lymphadenopathy and supple Chest Wall inspection of chest normal Resp normal respiratory effort and clear to auscultation bilaterally Cardio regular rhythm and no murmurs Rate: tachycardic GI soft to palpation, non-tender, non-distended and no masses Back/Spine no CVA tenderness Neuro oriented x3, CN's II-XII intact bilaterally and no sensory deficits noted Sensorium / Orientation: alert Speech: speech normal Psych mental status grossly normal Skin Skin Narrative: Track cazares predominantly on the left upper extremity consistent with IV drug use, no surrounding cellulitic changes Rashes: no rashes MDM MDM MDM Narrative Medical decision making narrative: Patient is evaluated for detox. She would like to be admitted for detox from opioids. Medical clearance labs are obtained. Patient is given Zofran and Bentyl in the ER for symptoms. Will discuss with hospitalist to see if she can be admitted. Lab Data Labs: Laboratory Results - last 24 hr 07/06/21 07/06/21 09:40 09:40 WBC 10.6 RBC 4.34 Hgb 12.4 Hct 37.6 MCV 86.6 MCH 28.6 MCHC 33.0 RDW Std Deviation 39.8 RDW Coeff of Guero 12.6 Plt Count 253 MPV 10.8 Immature Gran % (Auto) 0.300 Neut % (Auto) 74.7 H Lymph % (Auto) 15.2 L Maverick % (Auto) 9.3 Eos % (Auto) 0.3 Baso % (Auto) 0.2 Absolute Neuts (auto) 7.9 H Absolute Lymphs (auto) 1.62 Nucleated RBC % 0 Sodium 138 Potassium 3.3 L Chloride 104 Carbon Dioxide 23.0 Anion Gap 11 BUN 3 L Creatinine 0.48 L Estim Creat Clear Calc 190.38 Est GFR (MDRD) Af Amer 201 Est GFR (MDRD) Non-Af 166 BUN/Creatinine Ratio 6.3 L Glucose 135 H Calcium 9.2 Total Bilirubin 0.50 AST 8 L ALT 17 Alkaline Phosphatase 131 H Total Protein 8.1 Albumin 2.9 L Globulin 5.2 H Albumin/Globulin Ratio 0.6 L Discharge Plan Triage Chief Complaint: Substance Abuse ED Provider: Jacqueline Rangel Dx/Rx/DC Orders Prescriptions: No Action aripiprazole 5 MG tablet 5 mg PO DAILY RF: 0 venlafaxine 150 MG capsule,extended release 24hr 150 mg PO BID RF: 0 Primary Care Provider: Care Physician,No Primary
[2021-07-06 10:15] LABS: Internal QC Validated? YES +Cl - CLEAR BKGD
[2021-07-06 10:21] LABS: Pregnancy, Serum, hCG Quali. NEGATIVE Negative
[2021-07-06 10:25] LABS: Alcohol, Blood (Medical)-Serum < 3.0 mg/dL
--- NOTE | 2021-07-06 10:36 | NURSING ---
MED SURG JONNY OPIATE DETOX
--- NOTE | 2021-07-06 10:36 | CM.ED ---
COMFORT Note Referral Source: Case Find Referral Reason: JEFE MOYER met with patient. She indicated she is linked with [facility]. She reports she wants to go to [facility] program for detox. She said that her last use was 2 days and her drug of choice is heroin. Patient reports using 1 gram of heroin a day. COMFORT spoke to Kelli lost charge card clerk. We have beds. COMFORT called [facility] and left voice mail for Adrián advising of patient's admission to [facility] program. COMFORT remains available if needs arise. Plan: [facility] program Sussy BURNETT
--- NOTE | 2021-07-06 12:04 | PCM.HP.STD ---
HPI - General General Date of Admission: 07/06/21 HPI Narrative YULIA BRADY, is a 25 F who presented to the emergency department [facility] on 07/06/2021 requesting detox from opiates and having symptoms consistent with acute withdrawal. The patient last use was 4 days ago. She states she has been using 1 to 2 g of fentanyl daily. She had also used street Xanax intermittently in the past to help with her fentanyl withdrawal symptoms but states she has not been doing this since her previous admission. I did ask her why she felt like she relapsed and she states she is unclear at this point. Her most recent admission was on 06/07/2021 and she was discharged on 06/10/2021 to the [facility] [place] where she spent 2 weeks. She reports at this time that she started using shortly after discharge from that facility. She does use tobacco regularly approximately 1 pack/day. At this time she is having diarrhea and nausea, chills and bilateral lower extremity muscle aches. She admits to having history of anxiety and depression and takes medications for this at baseline. We will admit her to med surgical floor and initiate opiate detox. [facility] Medical History Anxiety Depression IVDU (intravenous drug user) Nicotine use Opiate addiction Smoker Home Medications aripiprazole 5 mg PO DAILY 12/30/20 [History Last Taken 07/05/21] venlafaxine 150 mg PO BID 01/15/21 [History Last Taken 07/05/21] Allergy/AdvReac Type Severity Reaction Status Date / Time No Known Allergies Allergy Verified 07/06/21 09:21 Family History Father Alcohol abuse Social History Smoking Status: Current every day smoker tobacco type: cigarettes quit status: not considering quitting alcohol intake: never substance use type: opiates and prescription drug ROS Constitutional Constitutional: Reports chills and malaise; Denies anorexia, change in weight, fatigue, fever(s), night sweats, weakness or other Eyes Eyes: Denies blurry vision, change in eye color, change in vision, discharge from eye(s), double vision, erythema, eye pain, loss of vision or other ENT HEENT: Denies abnormal hearing, dysphagia, ear pain, epistaxis, headache(s), hearing loss, nasal congestion, nasal discharge, post nasal drip, sinus pressure, sore throat or other Cardiovascular Cardiovascular: Denies chest pain, claudication, dyspnea on exertion, edema, lightheadedness, orthopnea, palpitations, paroxysmal nocturnal dyspnea, rapid heart rate, syncope or other Respiratory/Chest Respiratory/Chest: Denies cough, dyspnea, excessive phlegm production, hemoptysis, productive cough, shortness of breath at rest, shortness of breath with exertion, wheezing or other Gastrointestinal Gastrointestinal: Reports diarrhea, nausea and vomiting Genitourinary Genitourinary: Reports burning urination and dysuria; Denies difficulty urinating, hematuria, nocturia, urinary frequency, urinary hesitancy, urinary incontinence, urinary urgency or other Musculoskeletal Musculoskeletal: Reports myalgias; Denies arthralgias, back pain, joint pain, joint stiffness, joint swelling, neck pain or other Neurologic Neurologic: Denies abnormal gait, abnormal speech, confusion, disequilibrium, dizziness, focal weakness, headache(s), numbness, paresthesias, seizure-like activity, seizures, syncope, tingling, tremor(s) or other Psychiatric Psychiatric: Reports anxiety and depression; Denies homicidal ideation, suicidal ideation or other Endocrine Endocrinology: Denies change in body appearance, cold intolerance, excessive sweating, heat intolerance, polydipsia, polyuria or other Hematologic/Lymphatic Hematologic/Lymphatic: Denies anemia, easy bleeding, easy bruising, lymphadenopathy or other Allergic/Immunologic Allergic/Immunologic: Denies rhinitis, hives, eczemia, asthma or other Vital Signs Vital Signs Vital Signs: 07/06/21 08:48 07/06/21 11:11 07/06/21 11:57 Temperature 97.4 F L 98.7 F 98.5 F Temperature Source Temporal Oral Oral Pulse Rate 116 H 87 80 Respiratory Rate 16 18 18 Blood Pressure 120/82 H 105/62 98/63 Blood Pressure Mean 94 76 74 Blood Pressure Source Manual Blood Pressure Position Semi-Fowlers Blood Pressure Location Left Arm Pulse Ox 96 97 99 Oxygen Delivery Method Room Air Room Air Room Air Weight Weight: 82.554 kg Body Mass Index (BMI) 26.1 Physical Exam Const alert, oriented x3 and no apparent distress Constitutional Narrative: Young white female lying in bed in left side-lying, appears comfortable, nontoxic, no acute distress General Appearance: cooperative HEENT normocephalic, head/scalp atraumatic, hearing grossly normal bilaterally and moist oral mucous membranes Eyes PERRL and EOMs intact bilaterally Neck supple Neck Narrative: Trachea midline Resp normal respiratory effort, no retractions, no use of accessory muscles and clear to auscultation bilaterally Auscultation: Negative for crackles, rales, rhonchi or wheezes Cardio regular rate, regular rhythm, S1 normal heart sound, S2 normal heart sound, no murmurs, no rub, no gallops, no clicks and no JVD GI normal to inspection, nondistended, normoactive bowel sounds, soft to palpation, non-tender and non-distended Extremity no clubbing, cyanosis or edema Peripheral Pulses: Yes pulses 2+ throughout Neuro oriented x3, CN's II-XII intact bilaterally, moves all extremities and no focal motor deficits Sensorium / Orientation: awake, alert and oriented to person Speech: speech normal Motor Exam: strength 5/5 throughout Psych Psych Narrative: Affect is flat and mood is depressed Mood & Affect: depressed Results Lab / Micro Data Attestation: I reviewed the patient's lab results. Result Diagrams: 07/06/21 09:40 07/06/21 09:40 Labs: Laboratory Results - last 24 hr 07/06/21 09:40: WBC 10.6, RBC 4.34, Hgb 12.4, Hct 37.6, MCV 86.6, MCH 28.6, MCHC 33.0, RDW Std Deviation 39.8, RDW Coeff of Guero 12.6, Plt Count 253, MPV 10.8, Immature Gran % (Auto) 0.300, Neut % (Auto) 74.7 H, Lymph % (Auto) 15.2 L, Polk % (Auto) 9.3, Eos % (Auto) 0.3, Baso % (Auto) 0.2, Absolute Neuts (auto) 7.9 H, Absolute Lymphs (auto) 1.62, Nucleated RBC % 0 07/06/21 09:40: Serum , Qual NEGATIVE 07/06/21 09:40: Sodium 138, Potassium 3.3 L, Chloride 104, Carbon Dioxide 23.0, Anion Gap 11, BUN 3 L, Creatinine 0.48 L, Estim Creat Clear Calc 190.38, Est GFR (MDRD) Af Amer 201, Est GFR (MDRD) Non-Af 166, BUN/Creatinine Ratio 6.3 L, Glucose 135 H, Calcium 9.2, Total Bilirubin 0.50, AST 8 L, ALT 17, Alkaline Phosphatase 131 H, Total Protein 8.1, Albumin 2.9 L, Globulin 5.2 H, Albumin/Globulin Ratio 0.6 L 07/06/21 09:40: Ethyl Alcohol < 3.0 Micro: Microbiology 07/06/21 09:30 Interface Orders SARS-CoV-2 Antigen (Rapid) - Final Assessment & Plan Assessment/Plan (1) Opiate withdrawal: (2) Acute hypokalemia: (3) Nausea vomiting and diarrhea: PLAN: Acute opiate withdrawal -Start buprenorphine taper -Start supportive medications -Patient uses 1 to 2 g of IV fentanyl daily with last use being 4 days prior to presentation -Patient states she is tired of using and is unclear why she relapsed 2 weeks after her most recent inpatient detox -Urine tox is pending -180 consultation Hypokalemia -We will give 40 mEq of p.o. potassium -Check BMP and mag level in a.m. Dysuria -Patient states she feels like she may have urinary tract infection -UA pending--> patient has not yet been able to produce a urine sample -If UA looks consistent with UTI will start antibiotics and check urine culture Anxiety/depression -Continue Effexor and Abilify Tobacco abuse -Nicotine patch -Recommend cessation Obesity -Recommend weight loss DVT prophylaxis -Early ambulation protocol -Low risk CODE STATUS -Full code Charges/Coding Visit Charges Inpatient E&M: 27172 Init Hosp L2
[2021-07-06] MEDS: Potassium Chloride Oral Tablet 20 MEQ 40 MEQ PO (12:53)
[2021-07-06] MEDS: Ondansetron 8 MG Tablet PO (17:04)
[2021-07-06] MEDS: Lactated Ringers 1,000 ML 100 ML IV (17:04)
[2021-07-06 17:21] LABS: Mucous, Urine 0 SEEN /hpf (<or=2+); Red Blood Cells-Urine 0 SEEN /hpf (0-5); Squamous Epithelial Cells - UA 0 SEEN /hpf (5-10)
[2021-07-06 17:22] LABS: Color, Urine Yellow (Yellow); Glucose, Dipstick Normal (Normal); Leukocyte Esterase-Dipstick 500 /ul (Negative); Nitrite-Dipstick Positive (Negative); Occult Blood-Urine 50 /ul (Negative); Protein-Dipstick 100 mg/dl (Negative); Urine Bilirubin Dipstick Negative (Negative); Urine Clarity Cloudy (Clear); Urine Urobilinogen 4 mg/dl (Normal)
[2021-07-06 17:28] LABS: Ketone-Dipstick 150 mg/dl (Negative)
[2021-07-06 17:32] LABS: Bacteria 1+ /hpf (None Seen); White Blood Cells >100 SEEN /hpf (0-5)
[2021-07-06 17:36] LABS: Amphetamine Urine VISTA NEGATIVE (<1000 ng/mL); Barbiturate Urine VISTA NEGATIVE (< 200 ng/mL); Benzodiazepine Urine VISTA NEGATIVE (< 200 ng/mL); Cocaine Urine VISTA NEGATIVE (< 300 ng/mL); Ecstacy Urine VISTA NEGATIVE (< 500 ng/mL); Methadone Urine VISTA NEGATIVE (< 300 ng/mL); PCP Urine VISTA NEGATIVE (< 25 ng/mL); THC Urine VISTA NEGATIVE (< 50 ng/mL); Vista UDS pH Range 7
[2021-07-06 18:20] LABS: Probe Check PASS; Specimen Processing Control PASS
[2021-07-06] MEDS: 0.9% Normal Saline 1,000 ML 100 ML IV (18:22)
[2021-07-06] MEDS: Ceftriaxone 1 GM/50 ML BAG IV (18:22)
[2021-07-06] MEDS: proCHLORPERazine 10 MG/2 ML Vial 5 MG IV (18:24)
[2021-07-06] MEDS: Buprenorphine HCl 2 MG TAB.SUBL SL (19:01)
--- NOTE | 2021-07-06 19:23 | PCS.PANDOC ---
PANDEMIC DOCUMENTATION INITIATED: Date: 05/24/2021 Time: 190
[2021-07-06] MEDS: Venlafaxine XR 150 MG Capsule PO (21:27)
[2021-07-07 03:45] VITALS: BP 122/62; PULSE 78; RESP 18; TEMP 36.8; O2SAT 96
[2021-07-07] MEDS: Buprenorphine HCl 2 MG TAB.SUBL SL ×3 (03:47→18:48)
[2021-07-07] MEDS: 0.9% Normal Saline 1,000 ML 100 ML IV (03:47)
[2021-07-07] MEDS: Acetaminophen 325 MG Tablet 650 MG PO (03:47)
[2021-07-07 06:55] LABS: Anion Gap 10 (5-15); BUN 5 mg/dL (7-18); BUN/Creat Ratio 11.6 RATIO (10-20); Calcium,Total 8.5 mg/dL (8.5-10.1); Chloride 106 mmol/L (98-107); Creatinine, Serum 0.43 mg/dL (0.55-1.02); EST Glomerular Filtration Rate 186 mL/min (>60); Est Glom Filt Rate - Afr Amer 225 mL/min (>60); Estimated Creatinine Clearance 212.51 ml/min; Glucose 108 mg/dL (74-106); Magnesium 1.9 mg/dL (1.6-2.6); Potassium 3.7 mmol/L (3.5-5.1); Sodium Level 139 mmol/L (136-145)
[2021-07-07 07:33] VITALS: O2SAT 98
--- NOTE | 2021-07-07 08:58 | US_ITS ---
STUDY: RENAL ULTRASOUND - COMPLETE REASON FOR EXAM: Female, 25 years old. Pyelonephritis. TECHNIQUE: Ultrasound evaluation of the kidneys was performed with real-time and static quintero-scale imaging. COMPARISON: None. FINDINGS: RIGHT KIDNEY: Normal location of the right kidney, which is normal in size. The right kidney measures 11.9 cm x 5.7 cm x 4.5 cm. There is a normal cortex of the right kidney. The renal cortex measures 1.7 cm. There is no right renal mass or cyst. There are no right renal calculi. There is no right hydronephrosis. DISTAL RIGHT URETER: There is non-visualization of the distal right ureter. There is no demonstrated right ureterovesical junction calculus. There is a visualized right ureteral jet. LEFT KIDNEY: Normal location of the left kidney, which is normal in size. The left kidney measures 10.9 cm x 5.2 cm x 5.8 cm. There is a normal cortex of the left kidney. The renal cortex measures 1.8 cm. There is no left renal mass or cyst. There are no left renal calculi. There is no left hydronephrosis. DISTAL LEFT URETER: There is non-visualization of the distal left ureter. There is no demonstrated left ureterovesical junction calculus. There is a visualized left ureteral jet. BLADDER: The distended urinary bladder has a volume of 124 ml. There is a normal wall thickness of the distended urinary bladder. There is no demonstrated mass within the urinary bladder. There are no demonstrated bladder calculi. US/Kidney and Bladder IMPRESSION: Normal ultrasound of the kidneys and urinary bladder. Electronically Signed: Tanner Mendoza MD at 12:09 EDT , Service support ,
[2021-07-07] MEDS: ARIPiprazole 5 MG Tablet PO (09:36)
[2021-07-07] MEDS: Venlafaxine XR 150 MG Capsule PO ×2 (09:36→21:10)
[2021-07-07 09:38] VITALS: BP 107/59; PULSE 64; RESP 16; TEMP 36.3; O2SAT 99
--- NOTE | 2021-07-07 10:49 | ADDICTION ---
This worker met w/PT to discuss D/C planning. PT plans to f/u with individual counselor at [facility] for follow-up counseling services. PT did not indicate a need for transportation post d/c from [facility].
--- NOTE | 2021-07-07 11:22 | PCM.PN.HOSP ---
Subjective Subjective Patient indicates she is feeling much better today. She is having back pain bilaterally. She denies any further vomiting or emesis. She indicates she has had dysuria for approximately 4 days prior to presentation. Objective Data Objective Data Vital Signs: Vital Signs Temp Pulse Resp BP Pulse Ox 97.4 F L 64 16 107/59 L 99 07/07/21 09:38 07/07/21 09:38 07/07/21 09:38 07/07/21 09:38 07/07/21 09:38 Oxygen Delivery Method Room Air Weight: 82.554 kg Body Mass Index (BMI) 26.1 Intake & Output: Intake and Output for Last 24 Hours 07/05/21 07/06/21 07/07/21 23:59 23:59 23:59 Intake Total 488.33 / 488.33 1859 Output Total 400 / 400 Balance 88.33 / 88.33 1859 / 1859 Lab / Micro Data Result Diagrams: 07/06/21 09:40 07/07/21 06:10 Labs: Laboratory Results - last 24 hr 07/06/21 17:05: COVID-19 (CONSTANZA) Negative 07/06/21 17:15: Urine Opiates Screen NEGATIVE, Urine Methadone Screen NEGATIVE, Ur Barbiturates Screen NEGATIVE, Ur Phencyclidine Scrn NEGATIVE, Ur Amphetamines Screen NEGATIVE, U Methamphetamin-MDMA NEGATIVE, U Benzodiazepines Scrn NEGATIVE, Urine Cocaine Screen NEGATIVE, U Cannabinoids Screen NEGATIVE, Ur Drug Screen Comment 07/06/21 17:15: Urine Color Yellow, Urine Clarity Cloudy, Urine pH 8.0, Ur Specific [place] 1.010, Urine Protein 100 H, Urine Glucose (UA) Normal, Urine Ketones 150 A*, Urine Occult Blood 50 H, Urine Nitrite Positive H, Urine Bilirubin Negative, Urine Urobilinogen 4 H, Ur Leukocyte Esterase 500 H, Urine RBC 0 SEEN, Urine WBC >100 SEEN, Ur Squamous Epith Cells 0 SEEN, Urine Bacteria 1+, Urine Mucus 0 SEEN 07/07/21 06:10: Sodium 139, Potassium 3.7, Chloride 106, Carbon Dioxide 23.0, Anion Gap 10, BUN 5 L, Creatinine 0.43 L, Estim Creat Clear Calc 212.51, Est GFR (MDRD) Af Amer 225, Est GFR (MDRD) Non-Af 186, BUN/Creatinine Ratio 11.6, Glucose 108 H, Calcium 8.5, Magnesium 1.9 Micro: Microbiology 07/06/21 09:30 Interface Orders SARS-CoV-2 Antigen (Rapid) - Final Physical Exam Const alert, oriented x3 and no apparent distress Constitutional Narrative: Young white female lying in bed, appears comfortable, nontoxic, no acute distress General Appearance: cooperative Exam Limitations: no limitations HEENT normocephalic, head/scalp atraumatic, hearing grossly normal bilaterally and moist oral mucous membranes Head and Scalp: normocephalic Resp normal respiratory effort, no retractions, no use of accessory muscles and clear to auscultation bilaterally Auscultation: Negative for crackles, rales, rhonchi or wheezes Cardio regular rate, regular rhythm, S1 normal heart sound, S2 normal heart sound, no murmurs, no rub, no gallops, no clicks and no JVD GI normal to inspection, nondistended, normoactive bowel sounds, soft to palpation, non-tender and non-distended GI Narrative: Some bilateral flank pain Extremity no clubbing, cyanosis or edema Neuro oriented x3 and moves all extremities Sensorium / Orientation: awake and alert Speech: speech normal Assessment & Plan Assessment/Plan (1) Opiate withdrawal: (2) Acute hypokalemia: (3) Acute cystitis: PLAN: Acute opiate withdrawal -Continue buprenorphine taper -last dose is 07/09/2021 at 1859 -Continue supportive medications -Patient uses 1 to 2 g of IV fentanyl daily with last use being 4 days prior to presentation -Patient states she is tired of using and is unclear why she relapsed 2 weeks after her most recent inpatient detox -Urine tox was negative -180 consultation pending Acute cystitis -Patient very symptomatic and UA is quite consistent with a urinary tract infection -Urine culture is pending -Ceftriaxone initiated and patient has improved clinically -Check retroperitoneal ultrasound to rule out pyelonephritis Hypokalemia -Resolved Anxiety/depression -Continue Effexor and Abilify Tobacco abuse -Nicotine patch -Recommend cessation Obesity -Recommend weight loss DVT prophylaxis -Early ambulation protocol -Low risk CODE STATUS -Full code Charges/Coding Visit Charges Inpatient E&M: 32958 Subs Hosp L2
[2021-07-07 14:34] VITALS: BP 114/68; PULSE 74; RESP 16; TEMP 35.9; O2SAT 99
[2021-07-07 20:16] VITALS: BP 113/66; PULSE 72; RESP 18; TEMP 37.1; O2SAT 98
[2021-07-07] MEDS: Methocarbamol 750 MG Tablet 1500 MG PO (21:10)
[2021-07-07] MEDS: Ceftriaxone 1 GM/50 ML BAG IV (21:11)
[2021-07-07] MEDS: 0.9% Saline Lock 10 ML Syringe IV (21:18)
[2021-07-08 03:17] VITALS: BP 112/62; PULSE 66; RESP 18; TEMP 36.8; O2SAT 97
[2021-07-08] MEDS: Buprenorphine HCl 2 MG TAB.SUBL SL ×2 (03:21→10:58)
[2021-07-08 09:17] VITALS: BP 109/53; PULSE 71; RESP 13; TEMP 36.8; O2SAT 96
[2021-07-08] MEDS: ARIPiprazole 5 MG Tablet PO (10:58)
[2021-07-08] MEDS: Venlafaxine XR 150 MG Capsule PO (10:58)
--- NOTE | 2021-07-08 11:35 | ADDICTION ---
This worker met with PT to discuss discharge and follow-up planning.
--- NOTE | 2021-07-08 12:58 | DS.PCM_ITS ---
Providers Date of Admission: 07/06/21 Primary Care Physician: No Primary Care Phys Reason For Visit: OPIATE DETOX Diagnosis Discharge Diagnosis (1) Opiate withdrawal: Status: Acute Code(s): F11.23 - Opioid dependence with withdrawal (2) Acute hypokalemia: Status: Acute Code(s): E87.6 - Hypokalemia (3) Acute cystitis: Status: Acute Code(s): N30.00 - Acute cystitis without hematuria Medications at Discharge Home Medications aripiprazole 5 mg PO DAILY 12/30/20 venlafaxine 150 mg PO BID 01/15/21 Hospital Course Operations None Procedures None Summary of Care Provided Minutes Spent on Discharge: 20 Hospital Course: Bertha Pryor is a 25-year-old white female who was admitted to [facility] on 07/06/2021 after presenting to the emergency department for opiate detox. Patient has a substantial history of IV drug use and had a recent admission where she was discharged to residential treatment. She states she was there for 2 weeks and then quickly started using opiates again. Current use was down from 3 g daily to 1 to 2 g daily. On presentation she was having nausea, vomiting, and diarrhea associated with myalgias and generalized body aches. She also complained of dysuria and back pain. A UA was done and consistent with infection. She did have fever and chills during her hospital course. She was treated with IV Rocephin and her urine culture grew E. coli that was sensitive to ceftriaxone. She was placed on a buprenorphine taper along with supportive medications and her symptoms were much improved. She was to complete her buprenorphine taper on 07/09/2020 1 in the AM and the plan was for discharge in the morning. When I evaluated her early on 07/08/2021 she was agreeable to the plan. Her nurse called me later in the day and told me she would like to leave AGAINST MEDICAL ADVICE. She signed AMA papers and left. Discharge diagnoses: Acute opiate withdrawal Acute cystitis-E. coli History of hepatitis C Hypokalemia Anxiety Depression Tobacco abuse Obesity Physical Exam Const alert, oriented x3 and no apparent distress Constitutional Narrative: Young white female lying in bed, appears comfortable, nontoxic, no acute distress, nursing at bedside General Appearance: cooperative Orientation / Consciousness: awake Exam Limitations: no limitations HEENT normocephalic, head/scalp atraumatic, hearing grossly normal bilaterally and moist oral mucous membranes Resp normal respiratory effort, no retractions, no use of accessory muscles and clear to auscultation bilaterally Auscultation: Negative for crackles, rales, rhonchi or wheezes Cardio regular rate, regular rhythm, S1 normal heart sound, S2 normal heart sound, no murmurs, no rub, no gallops, no clicks and no JVD GI normal to inspection, nondistended, normoactive bowel sounds, soft to palpation, non-tender and non-distended GI Narrative: Some bilateral flank pain Extremity no clubbing, cyanosis or edema Neuro oriented x3 and moves all extremities Sensorium / Orientation: awake and alert Speech: speech normal Motor Exam: strength 5/5 throughout Weight / BMI Weight Weight: 82.554 kg Body Mass Index (BMI) 26.1 ABG / Lab / Microbiology Data Result Diagrams: 07/06/21 09:40 07/07/21 06:10 Microbiology: Microbiology 07/06/21 17:15 Urine, Clean Catch Urine Culture - Final Escherichia coli 07/06/21 09:30 Interface Orders SARS-CoV-2 Antigen (Rapid) - Final Meaningful Use Info Meaningful Use Diagnoses (Choose all that apply): None applicable Discharge Plan Admission Admit Date/Time: 07/06/21 10:33 Primary Reason for Your Visit: Opiate detox Attending Provider: Kika Joaquin Primary Care Provider: Care Physician,No Primary Discharge Orders/Prescriptions Prescriptions: Continued aripiprazole 5 MG tablet 5 mg PO DAILY RF: 0 venlafaxine 150 MG capsule,extended release 24hr 150 mg PO BID RF: 0 Referrals / Follow Up: Care Physician,No Primary [Primary Care Provider] - Disposition Disposition (needs filled in before D/C Order can be placed): Against Medical Advice Charges/Coding Visit Charges Inpatient E&M: 35210 Disch Hosp
== END 2021-07-08 12:15 | disposition left against medical advice (07) | DRG 770 ==
LOC: ED 09:42 → MS2 10:56
PROVIDERS: Admitting Provider Internal Medicine; Emergency Provider Emergency Medicine; Visit Provider Internal Medicine
DX: F11.23 Opioid dependence with withdrawal (principal); N30.00 Acute cystitis without hematuria; B96.20 Unspecified Escherichia coli [E. coli] as the cause of diseases classified elsewhere; E87.6 Hypokalemia; Z20.822 Contact with and (suspected) exposure to COVID-19; F32.9 Major depressive disorder, single episode, unspecified; F41.9 Anxiety disorder, unspecified; M54.9 Dorsalgia, unspecified; F17.210 Nicotine dependence, cigarettes, uncomplicated; E66.9 Obesity, unspecified; Z68.26 Body mass index [BMI] 26.0-26.9, adult; Z79.899 Other long term (current) drug therapy; Z97.5 Presence of (intrauterine) contraceptive device; Z86.19 Personal history of other infectious and parasitic diseases
CPT/HCPCS: 36415; 76770; 80048; 80053; 80307; 81001; 82077; 83735; 84703; 85025; 87077; 87086; 87088; 87186; 87426; 87635; 99283; 99406; J7030; J7120; U0005; A4216; U0003

== ENCOUNTER 2021-12-17 00:15 | Emergency (ER) | payer MEDICAID, SELFPAY ==
[2021-12-17 00:15] VITALS: BP 124/76; PULSE 95; RESP 18; TEMP 36.2; O2SAT 100; BMI 25.5
--- NOTE | 2021-12-17 00:27 | EDS_ITS ---
HPI History of Present Illness Chief Complaint: Nausea/Vomiting Informant: patient Narrative Narrative: Patient presents significant other nausea vomiting for the past 2 days however only a total of 3 episodes. No hematemesis. States been dry heaving throughout the day able to tolerate Pedialyte. No diarrhea. No fevers. No myalgias. No urinary symptoms. Currently on her menstrual period. She states she has had episodes of these in the past. Denies abdominal pain. From records noted history of opiate dependence with detox 6 months ago. States she is currently not using she does not take Suboxone. Also previously noted tox cream from marijuana she denies also this currently. States only symptoms is nausea. Cannot do Phenergan secondary to cross-reactivity to her psychiatric medications. Prior similar symptoms: Yes PFSH PFSH Medical History Anxiety Depression IVDU (intravenous drug user) Nicotine use Opiate addiction Smoker Home Medications aripiprazole 5 mg PO DAILY 12/30/20 [History Last Taken 07/05/21] venlafaxine 150 mg PO BID 01/15/21 [History Last Taken 07/05/21] ondansetron 4 mg PO Q6H PRN #10 tab 12/17/21 [Rx Last Taken Unknown] Allergy/AdvReac Type Severity Reaction Status Date / Time promethazine [From Phenergan] AdvReac Other Verified 12/17/21 00:18 Family History Father Alcohol abuse Social History Smoking Status: Current every day smoker tobacco type: cigarettes quit status: not considering quitting alcohol intake: never substance use type: opiates and prescription drug ROS ROS ED Constitutional Constitutional ED: Denies chills, fever(s) or sweats Eyes Eyes: Denies change in vision ENT ENT ED: Denies dysphagia or sore throat Cardiovascular Cardiovascular: Denies chest pain, leg edema, palpitations or racing heartbeat Respiratory/Chest Respiratory/Chest: Denies cough, dyspnea or dyspnea on exertion Gastrointestinal Gastrointestinal: Reports nausea and vomiting; Denies abdominal pain or diarrhea Genitourinary Genitourinary ED: Denies dysuria, hematuria or urinary frequency Musculoskeletal Musculoskeletal: Denies back pain, extremity pain or neck pain Integumentary Denies rash or wounds Neurologic Neurologic: Denies headache(s), paresthesias or weakness EXAM Physical Exam Const Vital Signs: 12/17/21 00:15 Temperature 97.1 F L Temperature Source Temporal Pulse Rate 95 Respiratory Rate 18 Blood Pressure 124/76 H Blood Pressure Mean 92 Pulse Ox 100 Oxygen Delivery Method Room Air Positive well nourished and well developed General Appearance ED: well developed and NAD HEENT HEENT Narrative: Mild dry mucosal membranes. normocephalic and atraumatic Eyes PERRL, EOMs intact bilaterally and conjunctivae normal General Eye ED: Yes normal appearance of both eyes Neck no lymphadenopathy and supple General: Negative for tenderness Chest Wall Chest: Negative for tenderness Resp normal respiratory effort and normal air movement Effort and Inspection: symmetric chest movement; Negative for respiratory distre ss Cardio regular rate, regular rhythm and no murmurs Peripheral Pulses: pulses 2+ throughout GI normal to inspection, nondistended, normoactive bowel sounds and non-tender GI Narrative: Negative Hawley's or McBurney's tenderness. Palpation: Negative for guarding or rebound tenderness present Back/Spine no CVA tenderness and no thoracic nor lumbar tenderness Extremity normal to inspection General Extremety ED: Negative for edema or tenderness General Extremity: Negative for edema Neuro oriented x3 and no sensory deficits noted Sensorium / Orientation: awake and alert Skin no rashes or lesions noted and no wounds MDM MDM MDM Narrative Medical decision making narrative: Patient vital signs stable, nonsurgical abdomen exam. Reports current nausea reports tolerating Pedialyte there is mild dry mucosal membranes. She was given Zofran ODT, ordered urine for rule out she is currently on her menstrual period. She is monitored she reported to nursing she did not feel the urge to pee did not want to give urine sample. She states she feels better and wants to go home. I discussed with the patient. Prescription for Zofran sent to her pharmacy to use as needed she will continue oral hydration at home. All questions answered. Follow-up given as an outpatient. Discharge Plan Triage Chief Complaint: Nausea/Vomiting ED Provider: Lawrence Kohli Dx/Rx/DC Orders Clinical Impression: Nausea & vomiting Instructions: ED Vomiting (Adult) Prescriptions: New ondansetron 4 mg tablet,disintegrating 4 mg PO Q6H PRN (Reason: nausea and vomiting) Qty: 10 RF: 0 No Action aripiprazole 5 MG tablet 5 mg PO DAILY RF: 0 venlafaxine 150 MG capsule,extended release 24hr 150 mg PO BID RF: 0 Primary Care Provider: Care Physician,No Primary Referrals: Dee Retana [NON-STAFF] - 3-5 Days if not improving Care Physician,No Primary [Primary Care Provider] - Disposition Disposition: Home, Self Care
[2021-12-17] MEDS: Ondansetron ODT 4 MG Tablet 8 MG PO (00:35)
[2021-12-17 01:02] VITALS: RESP 16
== END 2021-12-17 01:02 | disposition home or self-care (01) ==
PROVIDERS: Emergency Provider Emergency Medicine; Visit Provider Emergency Medicine
DX: R11.2 Nausea with vomiting, unspecified (principal); F11.21 Opioid dependence, in remission; F32.A Depression, unspecified; F41.9 Anxiety disorder, unspecified; Z79.899 Other long term (current) drug therapy; F17.210 Nicotine dependence, cigarettes, uncomplicated
CPT/HCPCS: 99283

== ENCOUNTER 2022-09-08 18:01 | Emergency (ER) | payer MEDICAID, SELFPAY ==
[2022-09-08 18:06] VITALS: BP 121/77; PULSE 100; RESP 15; TEMP 36.7; O2SAT 96
[2022-09-08 18:07] VITALS: BP 122/88; PULSE 122; RESP 18; TEMP 35.9; O2SAT 99; BMI 25.1
--- NOTE | 2022-09-08 18:26 | EX.ED.DYSGE1 ---
HPI History of Present Illness Chief Complaint: Overdose Informant: patient Narrative Narrative: Patient presents after a reported unintentional overdose on opioid. She states she used to use fentanyl and meth but has not used in over 6 months. She was feeling fine. She borrowed a cigarette from somebody. Stated it was very better. Next thing she knows she woke up with the police and EMS. They used 2 doses of intranasal Narcan. She states she feels fine now except confused over the details of what happened. Nothing makes her symptoms worse. Narcan made her unresponsive episode better. PFSH PFSH Medical History Anxiety Depression IVDU (intravenous drug user) Nicotine use Opiate addiction Smoker Home Medications aripiprazole 5 mg tablet 5 mg PO DAILY MOOD 12/30/20 [History Last Taken 07/05/21] venlafaxine 150 mg capsule,extended release 24 hr 150 mg PO BID MOOD 01/15/21 [History Last Taken 07/05/21] ondansetron 4 mg disintegrating tablet 4 mg PO Q6H PRN nausea and vomiting #10 tabs 12/17/21 [Rx Last Taken Unknown] hydroxyzine HCl 25 mg tablet 25 mg PO DAILY 09/08/22 [History Last Taken Unknown] Allergy/AdvReac Type Severity Reaction Status Date / Time Penicillins AdvReac Swollen Verified 09/08/22 18:15 lymph glands promethazine [From Phenergan] AdvReac Other Verified 09/08/22 18:15 Family History Father Alcohol abuse Social History Smoking Status: Current every day smoker tobacco type: cigarettes quit status: not considering quitting alcohol intake: never substance use type: opiates and prescription drug ROS ROS ED Constitutional Constitutional ED: Denies fever(s) Eyes Eyes: Denies change in vision ENT ENT ED: Denies rhinorrhea Cardiovascular Cardiovascular: Denies chest pain or palpitations Respiratory/Chest Respiratory/Chest: Denies cough or dyspnea Gastrointestinal Gastrointestinal: Denies nausea or vomiting Musculoskeletal Musculoskeletal: Denies myalgias Integumentary Denies rash Neurologic Neurologic: Denies headache(s) Psychiatric Psychiatric: Denies suicidal ideation or suicidal thoughts Endocrine Endocrinology: Denies polydipsia or polyuria Allergic/Immunologic Allergic/Immunologic ED: Denies urticaria EXAM Physical Exam Const Vital Signs: 12/01/22 18:07 09/08/22 18:06 09/08/22 19:06 Temperature 96.7 F L 98.0 F 98.2 F Temperature Source Temporal Temporal Temporal Pulse Rate 122 H 100 96 Respiratory Rate 18 15 16 Blood Pressure 122/88 H 121/77 H 124/75 H Blood Pressure Mean 99 91 91 Pulse Ox 99 96 95 Oxygen Delivery Method Room Air Room Air Room Air 09/08/22 21:00 Temperature Temperature Source Pulse Rate 96 Respiratory Rate 22 H Blood Pressure 117/78 Blood Pressure Mean 91 Pulse Ox 98 Oxygen Delivery Method Room Air Positive well nourished and well developed Constitutional Narrative: Patient is awake alert and appropriate. She makes good eye contact. She is not sleepy or lethargic at all at this point. Breathing easily. General Appearance ED: well developed and NAD; Negative for cyanotic or diaphoretic HEENT Reports moist mucous membranes Eyes PERRL Neck supple Chest Wall inspection of chest normal Resp normal respiratory effort and clear to auscultation bilaterally Auscultation: Negative for rales, rhonchi or wheezes Cardio regular rhythm; Negative for regular rate Rate: tachycardic GI normal to inspection, nondistended, normoactive bowel sounds and non-tender Back/Spine no CVA tenderness Extremity normal to inspection Extremity Narrative: No sign of recent injections General Extremety ED: Negative for edema or tenderness General Extremity: Negative for edema Neuro oriented x3 Sensorium / Orientation: alert; Negative for lethargic or stuporous Psych mental status grossly normal Skin no rashes or lesions noted MDM MDM MDM Narrative Medical decision making narrative: Patient has been watched here. There have been no issues. Her heart rate is down. Saturations are normal. We have not had to premedicate her. I think she is safe for discharge at this time. Discharge Plan Triage Chief Complaint: Overdose ED Provider: Walker Dueñas Dx/Rx/DC Orders Clinical Impression: Poisoning by other opioids, accidental (unintentional), initial encounter Instructions: ED Accidental Ingestion ..., ED Overdose, Opiate Prescriptions: No Action aripiprazole 5 MG tablet 5 mg PO DAILY venlafaxine 150 MG capsule,extended release 24hr 150 mg PO BID ondansetron 4 mg tablet,disintegrating 4 mg PO Q6H PRN (Reason: nausea and vomiting) Qty: 10 0RF hydroxyzine HCl 25 mg tablet 25 mg PO DAILY Primary Care Provider: Care Physician,No Primary Referrals: Care Physician,No Primary [Primary Care Provider] - Disposition Disposition: Home, Self Care
--- NOTE | 2022-09-08 19:03 | CM.ED ---
SW Note Referral Source: Case Find Referral Reason: No Primary Care Physician (PCP) SW reviewed chart and noted that patient has no PCP. SW provided patient with list of [facility] Physician List for reference. SW also provided patient with handout ?Where to go When?. No other issues or concerns voiced at this time. SW remains available for any additional needs. Plan: Provided patient with PCP information Sussy BURNETT
[2022-09-08 19:06] VITALS: BP 124/75; PULSE 96; RESP 16; TEMP 36.8; O2SAT 95
--- NOTE | 2022-09-08 19:27 | ED.RN ---
Attempted to call Enrique per pt request. No answer at this time.
[2022-09-08 21:00] VITALS: BP 117/78; PULSE 96; RESP 22; O2SAT 98
--- NOTE | 2022-09-08 22:00 | ED.RN ---
Terra from [facility] updated about pt care.
[2022-09-08 22:32] VITALS: PULSE 94; RESP 15; TEMP 37; O2SAT 100
== END 2022-09-08 22:32 | disposition home or self-care (01) ==
PROVIDERS: Emergency Provider Emergency Medicine; Visit Provider Emergency Medicine
DX: T40.2X1A Poisoning by other opioids, accidental (unintentional), initial encounter (principal); F15.90 Other stimulant use, unspecified, uncomplicated; Y99.9 Unspecified external cause status; F17.210 Nicotine dependence, cigarettes, uncomplicated
CPT/HCPCS: 99284; A4216

== ENCOUNTER 2023-06-21 08:45 | Inpatient (IN) | payer MEDICAID, SELFPAY ==
[2023-06-21 08:45] VITALS: BP 126/72; PULSE 117; RESP 18; TEMP 36.6; O2SAT 100
[2023-06-21] MEDS: Ondansetron ODT 4 MG Tablet PO (09:29)
--- NOTE | 2023-06-21 09:30 | EDS_ITS ---
HPI History of Present Illness Chief Complaint: Nausea/Vomiting Narrative Narrative: 27-year-old female presenting for detox. She states that she close to meet somebody today to set up IOP. Patient has a history of opioid abuse and is currently been using also methamphetamine. There is fentanyl mixing with her drugs that she can feel the opioid withdrawal. Patient states she has had this in the past. Patient states she has no medications to assist her. She does not think she can do it outpatient without inpatient treatment patient care first. Patient complains of constipation which she has not been able to have a normal bowel movement for a month. History of abdominal surgeries. [facility] Medical History Anxiety Depression IVDU (intravenous drug user) Nicotine use Opiate addiction Smoker Home Medications aripiprazole 5 mg tablet 5 mg PO DAILY MOOD 12/30/20 [History Last Taken 07/05/21] venlafaxine 150 mg capsule,extended release 24 hr 150 mg PO BID MOOD 01/15/21 [History Last Taken 07/05/21] ondansetron 4 mg disintegrating tablet 4 mg PO Q6H PRN nausea and vomiting #10 tabs 12/17/21 [Rx Last Taken Unknown] hydroxyzine HCl 25 mg tablet 25 mg PO DAILY 09/08/22 [History Last Taken Unknown] Allergy/AdvReac Type Severity Reaction Status Date / Time Penicillins AdvReac Swollen Verified 06/21/23 08:48 lymph glands promethazine [From Phenergan] AdvReac Other Verified 06/21/23 08:48 Family History Father Alcohol abuse Social History Smoking Status: Current every day smoker tobacco type: cigarettes quit status: not considering quitting alcohol intake: never substance use type: opiates and prescription drug ROS ROS ED Constitutional Constitutional ED: Denies chills, fever(s) or sweats Eyes Eyes: Denies blurry vision or change in vision ENT ENT ED: Denies ear pain or sore throat Cardiovascular Cardiovascular: Denies chest pain, palpitations or racing heartbeat Respiratory/Chest Respiratory/Chest: Denies cough, dyspnea or sputum Gastrointestinal Gastrointestinal: Reports abdominal pain, constipation, nausea and vomiting; Denies diarrhea Genitourinary Genitourinary ED: Denies dysuria, hematuria or urinary frequency Musculoskeletal Musculoskeletal: Denies arthralgias, myalgias or neck pain Integumentary Denies abscess, Abrasions or rash Neurologic Neurologic: Denies headache(s), paresthesias or weakness Psychiatric Psychiatric: Denies anxiety, depression, suicidal ideation or suicidal thoughts Endocrine Endocrinology: Denies polydipsia or polyuria EXAM Physical Exam Const Vital Signs: 06/21/23 08:45 Temperature 97.9 F Temperature Source Temporal Pulse Rate 117 H Respiratory Rate 18 Blood Pressure 126/72 H Blood Pressure Mean 90 Pulse Ox 100 Oxygen Delivery Method Room Air Positive well nourished General Appearance ED: Negative for pallor HEENT Reports moist mucous membranes Eyes PERRL Resp normal respiratory effort and clear to auscultation bilaterally Auscultation: Negative for rales, rhonchi or wheezes Cardio regular rate and regular rhythm GI soft to palpation, non-tender, non-distended and no masses Neuro oriented x3 and CN's II-XII intact bilaterally Sensorium / Orientation: alert Motor Exam: strength 5/5 throughout Psych mental status grossly normal and thought process normal Mood & Affect: anxious and tearful Skin General Skin Exam: Negative for jaundice or pallor MDM MDM MDM Narrative Medical decision making narrative: For detox. She does opioids and methamphetamine. Patient states she feels that she is withdrawing. She does not believe she can make it to outpatient IOP. Screening lab work was obtained and there is a slight leukocytosis however the patient is vomiting. Otherwise her blood work is unremarkable. CG negative. EtOH negative. Urine drug screen is pending. Patient given Zofran for nausea. Rest with hospitalist for admission. Impression: 1. Opioid abuse 2. constipation 3. Hypokalemia Lab Data Attestation: I reviewed the patient's lab results. Labs: Laboratory Results - last 24 hr 06/21/23 09:34 WBC 13.7 H RBC 4.15 L Hgb 12.9 Hct 38.7 MCV 93.3 MCH 31.1 MCHC 33.3 RDW Std Deviation 43.4 RDW Coeff of Guero 12.7 Plt Count 187 MPV 10.8 Immature Gran % (Auto) 0.300 Neut % (Auto) 85.7 H Lymph % (Auto) 9.0 L [place] % (Auto) 3.6 Eos % (Auto) 1.0 Baso % (Auto) 0.4 Absolute Neuts (auto) 11.7 H Absolute Lymphs (auto) 1.24 Nucleated RBC % 0 Sodium 138 Potassium 3.1 L Chloride 106 Carbon Dioxide 26.0 Anion Gap 6 BUN 8 Creatinine 0.70 Estim Creat Clear Calc 110.39 Est GFR (MDRD) Af Amer 127 Est GFR (MDRD) Non-Af 105 BUN/Creatinine Ratio 11.4 Glucose 127 H Calcium 8.9 Total Bilirubin 0.30 AST 9 L ALT 16 Alkaline Phosphatase 68 Total Protein 7.7 Albumin 3.7 Globulin 4.0 Albumin/Globulin Ratio 0.9 Serum , Qual NEGATIVE Ethyl Alcohol < 3.0 Discharge Plan Triage Chief Complaint: Nausea/Vomiting ED Provider: Kane King Dx/Rx/DC Orders Prescriptions: No Action aripiprazole 5 MG tablet 5 mg PO DAILY venlafaxine 150 MG capsule,extended release 24hr 150 mg PO BID ondansetron 4 mg tablet,disintegrating 4 mg PO Q6H PRN (Reason: nausea and vomiting) Qty: 10 0RF hydroxyzine HCl 25 mg tablet 25 mg PO DAILY Primary Care Provider: Care Physician,No Primary Referrals: Care Physician,No Primary [Primary Care Provider] -
[2023-06-21 09:37] VITALS: BMI 18.1
[2023-06-21 10:00] LABS: Absolute Lymphocyte Count 1.24 X10^3/uL (0.83-4.51); Absolute Neutrophil Count 11.7 X10^3/uL (2.0-7.7); Basophil# 0.05 X10^3/uL; Basophil% 0.4 % (0-1); Eosinophil# 0.14 X10^3/uL; Hematocrit 38.7 % (37-47); Hemoglobin 12.9 g/dL (12.0-15.0); Lymphocyte # 1.24 X10^3/ul (0.83-4.51); Mean Corp Hgb Conc 33.3 g/dL (32-36); Mean Corpuscular Hgb 31.1 pg (27.0-32.0); Mean Corpuscular Volume 93.3 fL (81-99); Mean Platelet Vol. 10.8 fl (6.2-12.0); Monocyte% 3.6 % (0-10); NRBC Flagged by Analyzer 0 % (0-5); Neutrophil # 11.74 X10^3/uL (2.7-7.7); Neutrophil % 85.7 % (47-70); Platelet Count 187 K/mm3 (150-450); RBC Distribution Width CV 12.7 % (11.6-14.6); RBC Distribution Width SD 43.4 fl (35.1-43.9); Red Blood Count 4.15 M/mm3 (4.2-5.4); White Blood Count 13.7 K/mm3 (4.4-11.0)
[2023-06-21 10:13] LABS: ALB/GLOB Ratio 0.9 RATIO (0.9-2.4); AST(SGOT) 9 U/L (15-37); Alanine Aminotransfer ALT/SGPT 16 U/L (13-56); Albumin, Serum 3.7 g/dL (3.2-5.0); Alkaline Phosphatase 68 U/L (45-117); Anion Gap 6 (5-15); BUN 8 mg/dL (7-18); BUN/Creat Ratio 11.4 RATIO (10-20); Calcium,Total 8.9 mg/dL (8.5-10.1); Chloride 106 mmol/L (98-107); EST Glomerular Filtration Rate 105 mL/min (>60); Est Glom Filt Rate - Afr Amer 127 mL/min (>60); Estimated Creatinine Clearance 110.39 ml/min; Glucose 127 mg/dL (74-106); Potassium 3.1 mmol/L (3.5-5.1); Protein, Total 7.7 g/dL (6.4-8.2); Sodium Level 138 mmol/L (136-145)
[2023-06-21 10:16] LABS: Alcohol, Blood (Medical)-Serum < 3.0 mg/dL; Internal QC Validated? YES +Cl - CLEAR BKGD; Pregnancy, Serum, hCG Quali. NEGATIVE Negative; Record Kit Lot#, Serum Preg. HCG0000667200
[2023-06-21] MEDS: Potassium Chloride Oral Soln 20 MEQ/15 ML UDC 40 MEQ PO (10:51)
[2023-06-21 11:42] VITALS: BP 153/67; PULSE 64; RESP 14; TEMP 36.2; O2SAT 97
--- NOTE | 2023-06-21 12:05 | ED.RN ---
RN ATTEMPTED TO COLLECT URINE SAMPLE MULTIPLE TIMES. PT STATES SHE IS UNABLE TO GIVE URINE SAMPLE.
[2023-06-21 12:57] LABS: Amphetamine Urine VISTA POSITIVE (<1000 ng/mL); Barbiturate Urine VISTA NEGATIVE (< 200 ng/mL); Benzodiazepine Urine VISTA NEGATIVE (< 200 ng/mL); Cocaine Urine VISTA NEGATIVE (< 300 ng/mL); Ecstacy Urine VISTA POSITIVE (< 500 ng/mL); Methadone Urine VISTA NEGATIVE (< 300 ng/mL); PCP Urine VISTA NEGATIVE (< 25 ng/mL); THC Urine VISTA NEGATIVE (< 50 ng/mL); Vista UDS pH Range 6
[2023-06-21 13:02] VITALS: BP 116/88; PULSE 82; RESP 18; TEMP 36.2; O2SAT 100
[2023-06-21 16:00] VITALS: BP 101/62; PULSE 65; RESP 18; TEMP 36.1; O2SAT 99
--- NOTE | 2023-06-21 20:08 | PCM.HP.STD ---
HPI - General General Date of Admission: 06/21/23 HPI Narrative YULIA BRADY, is a 27 F who presents to the hospital requesting detox from methamphetamines and fentanyl. She says she used to use IV heroin but then switched to methamphetamines and felt that her methamphetamines were also mixed as she was getting nausea and vomiting by using which she had not had before. She presents today requesting detox. Her last use was at around 2 AM on the morning of admission. [facility] Medical History Anxiety Depression IVDU (intravenous drug user) Nicotine use Opiate addiction Smoker Home Medications aripiprazole 5 mg tablet 5 mg PO DAILY MOOD 12/30/20 [History Last Taken 07/05/21] venlafaxine 75 mg capsule,extended release 24 hr 75 mg PO DAILY DEPRESSION 06/21/23 [History Last Taken Unknown] Allergy/AdvReac Type Severity Reaction Status Date / Time Penicillins AdvReac Swollen Verified 06/21/23 08:48 lymph glands promethazine [From Phenergan] AdvReac Other Verified 06/21/23 08:48 Family History Father Alcohol abuse no surgical history Social History Smoking Status: Current every day smoker tobacco type: cigarettes quit status: not considering quitting alcohol intake: never substance use type: opiates and prescription drug ROS Constitutional Constitutional: Denies chills, fatigue, fever(s) or malaise Eyes Eyes: Denies blurry vision ENT HEENT: Denies headache(s) or nasal discharge Cardiovascular Cardiovascular: Denies chest pain, dyspnea on exertion or syncope Respiratory/Chest Respiratory/Chest: Denies cough, shortness of breath at rest or shortness of breath with exertion Gastrointestinal Gastrointestinal: Denies constipation, diarrhea, nausea or vomiting Genitourinary Genitourinary: Denies dysuria Neurologic Neurologic: Reports tremor(s); Denies focal weakness or numbness Psychiatric Psychiatric: Reports anxiety; Denies depression Vital Signs Vital Signs Vital Signs: 06/21/23 08:45 06/21/23 11:42 06/21/23 12:57 Temperature 97.9 F 97.2 F L Temperature Source Temporal Temporal Pulse Rate 117 H 64 Respiratory Rate 18 14 Respiratory Effort Normal Blood Pressure 126/72 H 153/67 H Blood Pressure Mean 90 95 Blood Pressure Source Blood Pressure Position Blood Pressure Location Pulse Ox 100 97 Oxygen Delivery Method Room Air Room Air Room Air 06/21/23 13:02 06/21/23 16:00 Temperature 97.2 F L 97 F L Temperature Source Temporal Temporal Pulse Rate 82 65 Respiratory Rate 18 18 Respiratory Effort Blood Pressure 116/88 H 101/62 Blood Pressure Mean 97 75 Blood Pressure Source Monitor Monitor Blood Pressure Position Semi-Fowlers Semi-Fowlers Blood Pressure Location Right Arm Right Arm Pulse Ox 100 99 Oxygen Delivery Method Room Air Room Air Weight Weight: 130 lb Body Mass Index (BMI) 18.1 Physical Exam Narrative General: Alert, Oriented x3, Cooperative, No apparent distress HEENT: Atraumatic, PERRLA, EOMI, Normocephalic Oral: Moist Mucosa Neck: Supple, No JVD Lungs: Clear to auscultation, Normal air movement, No rhonchi, No wheeze, No rales Cardiovascular: Regular rate, Regular Rhythm, Normal S1, Normal S2, No murmurs Abdomen: Soft, Non Tender, Non-Distended, No Hepato-splenomegaly Extremities: No edema, Capillary Refill Less than 3 Seconds Skin: No rashes, No breakdown Musculoskeletal: No Tenderness to Palpation of Joints or Extremities Neurological: Cranial nerves II-XII grossly intact, Motor Exam 5/5 strength throughout, Sensory exam intact to light touch and pain Psych/Mental Status: Anxious, restless Results Lab / Micro Data 06/21/23 09:34 06/21/23 09:34 Labs: Laboratory Results - last 24 hr 06/21/23 09:34: WBC 13.7 H, RBC 4.15 L, Hgb 12.9, Hct 38.7, MCV 93.3, MCH 31.1, MCHC 33.3, RDW Std Deviation 43.4, RDW Coeff of Guero 12.7, Plt Count 187, MPV 10.8, Immature Gran % (Auto) 0.300, Neut % (Auto) 85.7 H, Lymph % (Auto) 9.0 L, [place] % (Auto) 3.6, Eos % (Auto) 1.0, Baso % (Auto) 0.4, Absolute Neuts (auto) 11.7 H, Absolute Lymphs (auto) 1.24, Nucleated RBC % 0, Sodium 138, Potassium 3.1 L, Chloride 106, Carbon Dioxide 26.0, Anion Gap 6, BUN 8, Creatinine 0.70, Estim Creat Clear Calc 110.39, Est GFR (MDRD) Af Amer 127, Est GFR (MDRD) Non-Af 105, BUN/Creatinine Ratio 11.4, Glucose 127 H, Calcium 8.9, Total Bilirubin 0.30, AST 9 L, ALT 16, Alkaline Phosphatase 68, Total Protein 7.7, Albumin 3.7, Globulin 4.0, Albumin/Globulin Ratio 0.9, Serum , Qual NEGATIVE, Ethyl Alcohol < 3.0 06/21/23 09:39: Urine Opiates Screen NEGATIVE, Urine Methadone Screen NEGATIVE, Ur Barbiturates Screen NEGATIVE, Ur Phencyclidine Scrn NEGATIVE, Ur Amphetamines Screen POSITIVE H, MDMA (Ecstasy) Screen POSITIVE H, U Benzodiazepines Scrn NEGATIVE, Urine Cocaine Screen NEGATIVE, U Cannabinoids Screen NEGATIVE, Ur Drug Screen Comment Assessment & Plan Assessment/Plan (1) Polysubstance (including opioids) dependence, daily use: PLAN: Plan 1. Acute opiate withdrawal/polysubstance abuse/tobacco abuse -Hepatitis C panel was positive however she cannot receive treatment until she stops using IV drugs -Continue with the opiate withdrawal protocol -Follow-up with 180 as an outpatient -Discussed cessation, can order nicotine patch if necessary 2. Anxiety/depression -Continue with her home medications DVT: Ambulation 75 minutes was spent on direct patient care, including documentation as well as chart review and collaboration with colleagues Charges/Coding Visit Charges Inpatient E&M: 42610 Init Hosp L3
[2023-06-22 00:12] VITALS: BP 110/65; PULSE 70; RESP 16; TEMP 36.6; O2SAT 98
--- NOTE | 2023-06-22 08:17 | PCM.PN.HOSP ---
Subjective Subjective Doing well, no issues overnight. COWS score of 3 Objective Data Objective Data Vital Signs: Vital Signs Temp Pulse Resp BP Pulse Ox O2 Del Method 97.8 F 70 16 110/65 98 Room Air 06/22/23 00:12 06/22/23 00:12 06/22/23 00:12 06/22/23 00:12 06/22/23 00:12 06/22/23 00:12 Oxygen Delivery Method Room Air Weight: 130 lb Body Mass Index (BMI) 18.1 Lab / Micro Data 06/21/23 09:34 06/21/23 09:34 Labs: Laboratory Results - last 24 hr 06/21/23 09:34: WBC 13.7 H, RBC 4.15 L, Hgb 12.9, Hct 38.7, MCV 93.3, MCH 31.1, MCHC 33.3, RDW Std Deviation 43.4, RDW Coeff of Guero 12.7, Plt Count 187, MPV 10.8, Immature Gran % (Auto) 0.300, Neut % (Auto) 85.7 H, Lymph % (Auto) 9.0 L, [place] % (Auto) 3.6, Eos % (Auto) 1.0, Baso % (Auto) 0.4, Absolute Neuts (auto) 11.7 H, Absolute Lymphs (auto) 1.24, Nucleated RBC % 0, Sodium 138, Potassium 3.1 L, Chloride 106, Carbon Dioxide 26.0, Anion Gap 6, BUN 8, Creatinine 0.70, Estim Creat Clear Calc 110.39, Est GFR (MDRD) Af Amer 127, Est GFR (MDRD) Non-Af 105, BUN/Creatinine Ratio 11.4, Glucose 127 H, Calcium 8.9, Total Bilirubin 0.30, AST 9 L, ALT 16, Alkaline Phosphatase 68, Total Protein 7.7, Albumin 3.7, Globulin 4.0, Albumin/Globulin Ratio 0.9, Serum , Qual NEGATIVE, Ethyl Alcohol < 3.0 06/21/23 09:39: Urine Opiates Screen NEGATIVE, Urine Methadone Screen NEGATIVE, Ur Barbiturates Screen NEGATIVE, Ur Phencyclidine Scrn NEGATIVE, Ur Amphetamines Screen POSITIVE H, MDMA (Ecstasy) Screen POSITIVE H, U Benzodiazepines Scrn NEGATIVE, Urine Cocaine Screen NEGATIVE, U Cannabinoids Screen NEGATIVE, Ur Drug Screen Comment Physical Exam Narrative General: Alert, Oriented x3, Cooperative, No apparent distress HEENT: Atraumatic, PERRLA, EOMI, Normocephalic Oral: Moist Mucosa Neck: Supple, No JVD Lungs: Clear to auscultation, Normal air movement, No rhonchi, No wheeze, No rales Cardiovascular: Regular rate, Regular Rhythm, Normal S1, Normal S2, No murmurs Abdomen: Soft, Non Tender, Non-Distended, No Hepato-splenomegaly Extremities: No edema, Capillary Refill Less than 3 Seconds Skin: No rashes, No breakdown Musculoskeletal: No Tenderness to Palpation of Joints or Extremities Neurological: Cranial nerves II-XII grossly intact, Motor Exam 5/5 strength throughout, Sensory exam intact to light touch and pain Psych/Mental Status: Flat Assessment & Plan Assessment/Plan (1) Polysubstance (including opioids) dependence, daily use: PLAN: Plan 1. Acute opiate withdrawal/polysubstance abuse/tobacco abuse -Hepatitis C panel was positive however she cannot receive treatment until she stops using IV drugs ?we will check HIV today -Continue with the opiate withdrawal protocol -Follow-up with 180 as an outpatient -Discussed cessation, can order nicotine patch if necessary 2. Anxiety/depression -Continue with her home medications DVT: Ambulation Charges/Coding Visit Charges Inpatient E&M: 71305 Subs Hosp L2
[2023-06-22 09:17] LABS: HIV - WCH Non-Reactive (Nonreactive)
[2023-06-22 09:33] VITALS: BP 104/57; PULSE 72; RESP 18; TEMP 36.8; O2SAT 97
[2023-06-22] MEDS: Venlafaxine XR 75 MG Capsule PO (09:44)
[2023-06-22] MEDS: ARIPiprazole 5 MG Tablet PO (09:44)
--- NOTE | 2023-06-22 11:10 | ADDICTION ---
This bond underwriter met with PT to conduct ASAM, MSE, AUDIT, DUDIT assessments and to plan for d/c. PT A+Ox4 and participated actively. All assessments completed and placed in PT's chart. PT plans to f/u with [facility], she is unsure whether she wants in patient treatment services or outpatient. We will discuss again tomorrow. [facility] will transport to treatment if she decides to go.
[2023-06-22 15:00] VITALS: BP 99/64; PULSE 62; RESP 18; TEMP 36.9; O2SAT 98
[2023-06-23 05:00] VITALS: BP 115/70; PULSE 61; RESP 16; TEMP 36.6; O2SAT 97
--- NOTE | 2023-06-23 09:00 | PCM.PN.HOSP ---
Subjective Subjective Doing well, no issues overnight. Cow scores have not been elevated enough to start Suboxone taper Objective Data Objective Data Vital Signs: Vital Signs Temp Pulse Resp BP Pulse Ox O2 Del Method 98 F 61 16 115/70 97 Room Air 06/23/23 05:00 06/23/23 05:00 06/23/23 05:00 06/23/23 05:00 06/23/23 05:00 06/23/23 05:00 Oxygen Delivery Method Room Air Weight: 130 lb Body Mass Index (BMI) 18.1 Lab / Micro Data 06/21/23 09:34 06/21/23 09:34 Labs: Laboratory Results - last 24 hr 06/21/23 09:34: HIV 1&2 Antibody Non-Reactive Physical Exam Narrative General: Alert, Oriented x3, Cooperative, No apparent distress HEENT: Atraumatic, PERRLA, EOMI, Normocephalic Oral: Moist Mucosa Neck: Supple, No JVD Lungs: Clear to auscultation, Normal air movement, No rhonchi, No wheeze, No rales Cardiovascular: Regular rate, Regular Rhythm, Normal S1, Normal S2, No murmurs Abdomen: Soft, Non Tender, Non-Distended, No Hepato-splenomegaly Extremities: No edema, Capillary Refill Less than 3 Seconds Skin: No rashes, No breakdown Musculoskeletal: No Tenderness to Palpation of Joints or Extremities Neurological: Cranial nerves II-XII grossly intact, Motor Exam 5/5 strength throughout, Sensory exam intact to light touch and pain Psych/Mental Status: Flat Assessment & Plan Assessment/Plan (1) Polysubstance (including opioids) dependence, daily use: PLAN: Plan 1. Acute opiate withdrawal/polysubstance abuse/tobacco abuse -Hepatitis C panel was positive however she cannot receive treatment until she stops using IV drugs ?we will check HIV today -Continue with the opiate withdrawal protocol -Follow-up with 180 as an outpatient -Discussed cessation, can order nicotine patch if necessary 2. Anxiety/depression -Continue with her home medications DVT: Ambulation Charges/Coding Visit Charges Inpatient E&M: 62005 Subs Hosp L2
[2023-06-23 10:10] VITALS: BP 122/68; PULSE 88; RESP 16; TEMP 36.9; O2SAT 98
[2023-06-23] MEDS: ARIPiprazole 5 MG Tablet PO (10:10)
[2023-06-23] MEDS: Venlafaxine XR 75 MG Capsule PO (10:10)
--- NOTE | 2023-06-23 13:20 | DCINST_ITS ---
Discharge Instructions Diet Discharge Diet: No restrictions Activity Discharge Activity: Return to Normal Activity Dressing / Incision Call your doctor if you observe: Fever of 101 or Higher, Shortness of breath, Dizziness, Fainting spells, Swelling in the ankles, Chest pain and Increased palpitations (irregular heartbeat) Follow Up Care Test Results: Test results from this visit will be discussed in further detail at your follow- up appointment, if applicable. Discharge Plan Admission Admit Date/Time: 06/21/23 10:23 Attending Provider: Joseph Austin Primary Care Provider: Care Physician,Mirta Primary Discharge Orders/Prescriptions Prescriptions: Continued aripiprazole 5 MG tablet 5 mg PO DAILY venlafaxine 75 mg capsule,extended release 24hr 75 mg PO DAILY Referrals / Follow Up: Care Physician,Mirta Primary [Primary Care Provider] - Disposition Disposition (needs filled in before D/C Order can be placed): Home, Self Care
--- NOTE | 2023-06-23 13:21 | PCM.DC.SUM ---
Providers Date of Admission: 06/21/23 Primary Care Physician: No Primary Care Phys Reason For Visit: OPIATE DETOX Diagnosis Discharge Diagnosis (1) Polysubstance (including opioids) dependence, daily use: Status: Chronic Code(s): F11.20 - Opioid dependence, uncomplicated; F19.20 - Other psychoactive substance dependence, uncomplicated Medications at Discharge Home Medications aripiprazole 5 mg tablet 5 mg PO DAILY MOOD 12/30/20 venlafaxine 75 mg capsule,extended release 24 hr 75 mg PO DAILY DEPRESSION 06/21/23 Hospital Course Operations None Procedures None Summary of Care Provided Minutes Spent on Discharge: 38 Hospital Course: Per HPI: YULIA BRADY, is a 27 F who presents to the hospital requesting detox from methamphetamines and fentanyl. She says she used to use IV heroin but then switched to methamphetamines and felt that her methamphetamines were also mixed as she was getting nausea and vomiting by using which she had not had before. She presents today requesting detox. Her last use was at around 2 AM on the morning of admission. Hospital Course: 1. Acute opiate withdrawal with polysubstance abuse/tobacco abuse/anxiety/depression?27-year-old female who used to use IV heroin and fentanyl presented to the hospital as she thought that the methamphetamine she is started using were also laced with opiates. Her COWS score never exceeded and 8 so she would never was started on the Suboxone taper. She met with [facility] and did not feel like she was ready to do inpatient rehab at the moment and would like to do outpatient therapy. I discussed with her the possibility of staying through the weekend to set up outpatient on Monday but she stated that she would like to go home today. Of note on admission she did have a leukocytosis however she denies any fevers or chills and states that she has not had any dysuria or pelvic or abdominal pain. She also has a history of hepatitis C and she was tested on this admission for HIV which was negative. I do recommend continuing her mental health medications and following as an outpatient with [facility]. They were notified of her discharge today. I discussed with her the plan for discharge she expressed understanding of the risk benefits of going [facility] to [facility] and she would like to go back today. Physical Exam Narrative General: Alert, Oriented x3, Cooperative, No apparent distress HEENT: Atraumatic, PERRLA, EOMI, Normocephalic Oral: Moist Mucosa Neck: Supple, No JVD Lungs: Clear to auscultation, Normal air movement, No rhonchi, No wheeze, No rales Cardiovascular: Regular rate, Regular Rhythm, Normal S1, Normal S2, No murmurs Abdomen: Soft, Non Tender, Non-Distended, No Hepato-splenomegaly Extremities: No edema, Capillary Refill Less than 3 Seconds Skin: No rashes, No breakdown Musculoskeletal: No Tenderness to Palpation of Joints or Extremities Neurological: Cranial nerves II-XII grossly intact, Motor Exam 5/5 strength throughout, Sensory exam intact to light touch and pain Psych/Mental Status: Normal affect, appropriate Weight / BMI Weight Weight: 130 lb Body Mass Index (BMI) 18.1 ABG / Lab / Microbiology Data 06/21/23 09:34 06/21/23 09:34 D/C Instructions Discharge Diet: No restrictions Call your doctor if you observe: Fever of 101 or Higher, Shortness of breath, Dizziness, Fainting spells, Swelling in the ankles, Chest pain and Increased palpitations (irregular heartbeat) Meaningful Use Info Meaningful Use Diagnoses (Choose all that apply): None applicable Discharge Plan Admission Admit Date/Time: 06/21/23 10:23 Attending Provider: Joseph Austin Primary Care Provider: Care Physician,No Primary Discharge Orders/Prescriptions Prescriptions: Continued aripiprazole 5 MG tablet 5 mg PO DAILY venlafaxine 75 mg capsule,extended release 24hr 75 mg PO DAILY Referrals / Follow Up: Care Physician,No Primary [Primary Care Provider] - Disposition Disposition (needs filled in before D/C Order can be placed): Home, Self Care Charges/Coding Visit Charges Inpatient E&M: 80860 Disch Hosp >30min
--- NOTE | 2023-06-23 13:48 | NURSING ---
CALLED [facility] WITH [facility] FOR PT TO HAVE F/U O/P AND HAS APPT SCHEDULED FOR THE END OF THE WEEK WITH [facility] WITH [facility]
[2023-06-23 14:27] VITALS: BP 116/63; PULSE 74; RESP 16; TEMP 36.8; O2SAT 100
== END 2023-06-23 16:00 | disposition home or self-care (01) | DRG 773 ==
LOC: ED 09:13 → MS3 10:39
PROVIDERS: Admitting Provider Family Medicine; Emergency Provider Student in an Organized Health Care Education/Training Program; Visit Provider Family Medicine
DX: F11.23 Opioid dependence with withdrawal (principal); E87.6 Hypokalemia; F32.A Depression, unspecified; K59.00 Constipation, unspecified; F41.9 Anxiety disorder, unspecified; F17.210 Nicotine dependence, cigarettes, uncomplicated; Z79.899 Other long term (current) drug therapy; Z86.19 Personal history of other infectious and parasitic diseases
CPT/HCPCS: 80053; 80307; 82077; 84703; 85025; 86703; 97802; 99285; 99406

== ENCOUNTER 2023-11-25 15:06 | Emergency (ER) | payer MEDICAID, SELFPAY ==
[2023-11-25 15:09] VITALS: BP 103/80; PULSE 76; RESP 28; TEMP 36.7; O2SAT 95; BMI 18.8
--- NOTE | 2023-11-25 15:28 | EDS_ITS ---
HPI History of Present Illness Chief Complaint: Substance Abuse [facility] Medical History Anxiety Depression IVDU (intravenous drug user) Nicotine use Opiate addiction Smoker Home Medications aripiprazole 5 mg tablet 5 mg PO DAILY MOOD 12/30/20 [History Last Taken 07/05/21] venlafaxine 75 mg capsule,extended release 24 hr 75 mg PO DAILY DEPRESSION 06/21/23 [History Last Taken Unknown] Allergy/AdvReac Type Severity Reaction Status Date / Time Penicillins AdvReac Swollen Verified 06/21/23 08:48 lymph glands promethazine [From Phenergan] AdvReac Other Verified 06/21/23 08:48 Family History Father Alcohol abuse Social History Smoking Status: Current every day smoker tobacco type: cigarettes quit status: not considering quitting alcohol intake: never substance use type: opiates and prescription drug EXAM Physical Exam Const Vital Signs: 11/25/23 16:44 11/25/23 18:00 11/25/23 20:00 Temperature Pulse Rate 95 85 78 Respiratory Rate 21 H 14 18 Blood Pressure 113/67 99/55 L Blood Pressure Mean 80 69 Pulse Ox Oxygen Delivery Method Room Air 11/25/23 22:00 11/26/23 00:00 11/26/23 02:29 Temperature Pulse Rate 82 82 61 Respiratory Rate 18 18 16 Blood Pressure 102/62 107/67 96/72 Blood Pressure Mean 75 80 80 Pulse Ox 100 98 96 Oxygen Delivery Method Room Air Room Air 11/26/23 02:29 Temperature 97.1 F L Pulse Rate 61 Respiratory Rate 16 Blood Pressure 96/72 Blood Pressure Mean 80 Pulse Ox 96 Oxygen Delivery Method [facility] MDM MDM Narrative Medical decision making narrative: HISTORY OF PRESENT ILLNESS: 28 old female presents with concern for substance abuse. Patient is clinically intoxicated provide a lot of history. Per EMS patient was found unresponsive EMS was called and EMS arrived patient was agitated. Noted dilated pupils. REVIEW OF SYSTEMS: Unable to obtain reliable review of systems given the patient's apparent intoxication. PHYSICAL EXAM: Nursing triage notes reviewed, Vital signs reviewed Constitutional: please see mdm HENT: MMM Eyes: Pupils equal round and reactive to light, Extraocular muscles intact, dilated pupils Neck: No stridor, no JVD, full neck ROM Lungs: Clear to auscultation, No wheezing or rales. No increased work of breathing, no conversational dyspnea, no accessory muscle use, no nasal flaring. No respiratory distress noted Heart: Regular rate and rhythm, No murmurs, No rubs and No gallops, 2+ distal pulses (radial, femoral, posterior tibial) in all extremities Abdomen: Soft, there is no tenderness, rigidity, rebound or guarding, no obvious peritoneal signs, no palpable pulsatile abdominal masses, no auscultated abdominal bruit : No CVAT Extremities: No edema Neuro: No focal neurological deficits, cranial nerves II through XII intact, 5/5 strength in all extremities. Intact sensation to light touch in all extremities, 2+ reflexes bilateral patella tendons. Normal gait. No ataxia. Skin: No rash or lesions noted, no track cazares MEDICAL DECISION MAKING: Chief Complaint: Substance abuse External records reviewed: Admitted June for opiate detox Factors affecting care: IVDU, opiate abuse, anxiety, depression MDM Narrative: Patient was initially hemodynamically stable, afebrile, nontoxic-appearing. Given patient had reported being found unresponsive in her intoxicated status that makes her unable to provide a reliable history, given we attempted to contact the patient's next of kin her mother who lives in [place]. Given we cannot obtain a sober ride for the patient we did obtain a broad lab and imaging workup to further elucidate the etiology of his complaints. Patient was agitated and did not tolerate CT scan and blood work or urinalysis and as such was treated with IM Geodon, Ativan and Benadryl. Patient is placed on the monitor immediately after these medicines were given. She was continually monitored throughout her ED stay I considered the following differential diagnosis: ICH, myocardial ischemia, rhabdomyolysis, dehydration, ALL IMAGES (IF OBTAINED) HAVE BEEN PERSONALLY REVIEWED AND INTERPRETED BY MYSELF. CT scan of the head shows no evidence of intracranial normality EKG with normal sinus rhythm, normal axis, no intervals, no STEMI CK mildly elevated but not consistent with acute rhabdomyolysis CBC with leukocytosis suggestive of systemic inflammation likely secondary to acute condition and drug use such as methamphetamine, no severe anemia or thrombocytopenia noted BMP without evidence of significant electrolyte abnormalities, no anion gap, no acute kidney injury. High-sensitivity troponin is negative, no evidence of myocardial ischemia Urine tox cream positive for methamphetamine and MDMA is likely the etiology of the patient's presentation today Serum alcohol negative Patient remained somnolent after agitation treatments. She was continued on telemetry monitoring. She will be monitored until she metabolizes drugs and r eassess at that time for injury or suicidality. The patient and/or family, caregivers express understanding. The patient and/or family, caregivers agrees with the plan. Shared decision making: I will have a discussion with the patient and or visitors regarding risk/benefits of further testing or admission. They will be made aware of of the risk/benefits inherent in this decision they will be given the opportunity to voice understanding. Total critical care time today provided was at least 0 minutes. This excludes separately billable procedures. Critical care time (if documented) is secondary to the patient having high probability of clinically significant/life threatening deterioration in the patient's condition which required my urgent intervention. Impression: 1. Acute intoxication 2. Methamphetamine abuse 3. Polysubstance abuse Dispo: sober re-evaluation by overnight physician. This note was generated with [employer] dictation software. It may contain incorrect words, spelling, and punctuation that were not noted in review of the chart prior to signing. Lab Data Labs: Laboratory Results - last 24 hr 11/25/23 11/25/23 16:05 17:10 WBC 14.4 H RBC 4.34 Hgb 13.7 Hct 39.2 MCV 90.3 MCH 31.6 MCHC 34.9 RDW Std Deviation 40.9 RDW Coeff of Guero 12.4 Plt Count 234 MPV 10.5 Immature Gran % (Auto) 0.500 Neut % (Auto) 71.5 H Lymph % (Auto) 18.9 L [place] % (Auto) 7.8 Eos % (Auto) 0.8 Baso % (Auto) 0.5 Absolute Neuts (auto) 10.3 H Absolute Lymphs (auto) 2.73 Nucleated RBC % 0 Sodium 138 Potassium 3.7 Chloride 109 H Carbon Dioxide 20.0 L Anion Gap 9 BUN 16 Creatinine 0.74 Estim Creat Clear Calc 107.22 Est GFR (MDRD) Af Amer 118 Est GFR (MDRD) Non-Af 98 BUN/Creatinine Ratio 21.6 H Glucose 79 Calcium 9.5 Total Creatine Kinase 230 H Troponin I High Sens 6 Serum , Qual NEGATIVE Urine Opiates Screen NEGATIVE Urine Methadone Screen NEGATIVE Ur Barbiturates Screen NEGATIVE Ur Phencyclidine Scrn NEGATIVE Ur Amphetamines Screen POSITIVE H MDMA (Ecstasy) Screen POSITIVE H U Benzodiazepines Scrn NEGATIVE Urine Cocaine Screen NEGATIVE U Cannabinoids Screen NEGATIVE Ur Drug Screen Comment Ethyl Alcohol < 3.0 Radiography Diagnostic Testing: Clinical Impression(s) from Imaging Studies Brain CT 11/25/23 15:37 IMPRESSION: Normal unenhanced CT scan of the brain. Electronically Signed: Ronan Holland DO at 16:54 EST Reading Location ID and State: [facility] / MD Tel [phone], Service support , Discharge Plan Triage Chief Complaint: Substance Abuse ED Provider: Jovanny Iraheta Dx/Rx/DC Orders Prescriptions: No Action aripiprazole 5 MG tablet 5 mg PO DAILY venlafaxine 75 mg capsule,extended release 24hr 75 mg PO DAILY Primary Care Provider: Care Physician,No Primary Referrals: Care Physician,No Primary [Primary Care Provider] - Disposition Disposition: Home, Self Care Discharge Date/Time: 11/26/23 02:31
--- NOTE | 2023-11-25 15:36 | EKG12_ITS ---
Test Reason : Blood Pressure : / mmHG Vent. Rate : 098 BPM Atrial Rate : 098 BPM P-R Int : 190 ms QRS Dur : 082 ms QT Int : 346 ms P-R-T Axes : 031 060 008 degrees QTc Int : 441 ms Normal sinus rhythm Nonspecific T wave abnormality Abnormal ECG Confirmed by AILEEN HARTLEY, CHRISTINA ([id number]), editorial manager CARLOS MIRANDA ([id number]) on 11/27/2023 10:10:42 AM Referred By: Confirmed By:CHRISTINA GALLAGHER MD
--- NOTE | 2023-11-25 15:37 | CT_ITS ---
STUDY: CT BRAIN WITHOUT CONTRAST REASON FOR EXAM: Female, 28 years old. altered mental status RADIATION DOSAGE (If Supplied By Facility): CTDIvol = ( 44.99 ) mGy, DLP = ( 745.49 ) mGycm TECHNIQUE: Transaxial CT imaging of the brain was performed without administration of intravenous contrast material. Individualized dose optimization techniques were used for this CT. COMPARISON: No relevant priors. FINDINGS: Normal soft tissue structures. Normal calvarium. Normal size ventricles and extra-axial spaces for the patient''s age. Normal white matter tracts of the cerebral hemispheres. Normal basal ganglia and thalami. Normal brainstem. Normal cerebellum. There is no intracranial hemorrhage. There are no findings of an acute ischemic infarction. Normal visualized paranasal sinuses. CT/Brain/Head without Contrast IMPRESSION: Normal unenhanced CT scan of the brain. Electronically Signed: Ronan Holland DO at 16:54 EST ,
[2023-11-25] MEDS: Lorazepam 2 MG/ML WCH Syringe IM (16:06)
[2023-11-25] MEDS: Ziprasidone IM 20 MG/ML VIAL IM (16:06)
[2023-11-25] MEDS: DiphenhydrAMINE 50 MG/ML Syringe IM (16:07)
[2023-11-25 16:17] LABS: Absolute Lymphocyte Count 2.73 X10^3/uL (0.83-4.51); Absolute Neutrophil Count 10.3 X10^3/uL (2.0-7.7); Basophil# 0.07 X10^3/uL; Basophil% 0.5 % (0-1); Eosinophil# 0.12 X10^3/uL; Eosinophils% 0.8 % (0-5); Hematocrit 39.2 % (37-47); Hemoglobin 13.7 g/dL (12.0-15.0); Lymphocyte # 2.73 X10^3/ul (0.83-4.51); Lymphocyte % 18.9 % (19-41); Mean Corp Hgb Conc 34.9 g/dL (32-36); Mean Corpuscular Hgb 31.6 pg (27.0-32.0); Mean Corpuscular Volume 90.3 fL (81-99); Mean Platelet Vol. 10.5 fl (6.2-12.0); Monocyte# 1.12 X10^3/uL; Monocyte% 7.8 % (0-10); NRBC Flagged by Analyzer 0 % (0-5); Neutrophil # 10.33 X10^3/uL (2.7-7.7); Neutrophil % 71.5 % (47-70); Platelet Count 234 K/mm3 (150-450); RBC Distribution Width CV 12.4 % (11.6-14.6); RBC Distribution Width SD 40.9 fl (35.1-43.9); Red Blood Count 4.34 M/mm3 (4.2-5.4); White Blood Count 14.4 K/mm3 (4.4-11.0)
--- OUTSIDE RECORDS SUMMARY | 2023-11-25 16:27 | XMS RPT_ITS | CCD ---
Author Name Unknown Address [address] [place] [address] Organization [facility] Care Team Providers Care Resaw Operator Name Role Phone Unavailable Primary Care Provider AXEL Cruz Referring Unavailable BRETT GANDHI Attending Unavailable ROCAEL DAWSON, DR COLÓN Primary Care Physician Dot Garcia Unavailable Unavailable Unavailable Primary Care Provider DR ELDON Benítez DO Primary Care Unavailable JULIA TILLEY DO Attending Unavailable TAMIKO ANG DO Admitting Unavailable TAMIKO ANG DO Attending Unavailable TAMIKO ANG DO Primary Care Unavailable Allergies Allergy Classification Reported Allergen(s) Allergy Type Date of Onset Reaction(s) Facility (4 sources) metroNIDAZOLE; Translations: [METRONIDAZOLE] Drug Allergy 0 Other: See Comments [facility] Work Phone: (2 sources) Penicillins; Translations: [PENICILLINS] Propensity to adverse reactions to drug (disorder) 2 Unknown [facility] Repository (2 sources) Promethazine; Translations: [PROMETHAZINE] Drug Allergy 2 Other: See Comments [facility] Repository (1 source) Penicillin Drug Allergy [facility] Repository Medications Current Medications Medication Drug Class(es) Dates Sig (Normalized) Sig (Original) ARIPiprazole 5 mg oral tablet (5 sources) Atypical Antipsychotic Start: 12-30-2020 ARIPiprazole 5 mg oral tablet 0 Refill(s) Start Date: 05/17/21 Status: Ordered Completed/Discontinued Medications Medication Drug Class(es) Dates Sig (Normalized) Sig (Original) acetaminophen 500 mg oral tablet (2 sources) Start: 11-02-2017 take 2 tablets by mouth every eight hours as needed acetaminophen (TYLENOL) 500 mg tablet Take 2 tablets by mouth every 8 hours as needed. 60 tablet 0 11/02/2017 Active Problems Problem Classification Problem Date Documented Date Episodic/Chronic Genitourinary symptoms and ill-defined conditions (2 sources) Increased frequency of urination; Translations: [Frequency of micturition] Episodic Other skin disorders (1 source) Swelling of upper arm 12-22-2020 Episodic Gail-; endo-; and myocarditis; cardiomyopathy (except that caused by tuberculosis or sexually transmitted disease) (1 source) Ejection murmur 12-22-2020 Chronic Residual codes; unclassified (1 source) Hallucinations 08-13-2016 Episodic Residual codes; unclassified (1 source) Peripheral edema 12-22-2020 Episodic Skin and subcutaneous tissue infections (2 sources) Cellulitis of left upper limb; Translations: [Cellulitis of left wrist] Onset: 10-10-2022 Episodic Substance-related disorders (1 source) Opioid abuse 12-22-2020 Chronic Suicide and intentional self-inflicted injury (1 source) Suicidal thoughts 08-13-2016 Episodic Unclassified (1 source) Pain in right lumbar region 04-30-2021 Results Test Name Value Interpretation Reference Range Facil ity Vital Signs Date Time Vital Sign Value Performing Clinician Facility 10-10-2022 15:30-0500 Body height 180.3 cm JULIA TILLEY DO [facility] 10-10-2022 15:30-0500 Body temperature 98.24 [degF] JULIA TILLEY DO [facility] 10-10-2022 15:30-0500 Body weight 79.5 kg JULIA TILLEY DO [facility] 10-10-2022 15:30-0500 Diastolic Blood Pressure Non-Invasive 69 1 JULIA TILLEY DO [facility] 10-10-2022 15:30-0500 Heart rate 102 /min JULIA TILLEY DO [facility] 10-10-2022 15:30-0500 Respiratory rate 16 /min JULIA TILLEY DO [facility] 10-10-2022 15:30-0500 Systolic Blood Pressure Non-Invasive 113 1 JULIA TILLEY DO [facility] 10-10-2022 13:10-0500 Body temperature 98.01 [degF] Brett Gandhi MD Work Phone: [facility] 10-10-2022 13:10-0500 Body weight 79.38 kg Brett Gandhi MD Work Phone: [facility] 10-10-2022 13:10-0500 Diastolic blood pressure 58 mm[Hg] Brett Gandhi MD Work Phone: [facility] 10-10-2022 13:10-0500 Heart rate 94 /min Brett Gandhi MD Work Phone: [facility] 10-10-2022 13:10-0500 Respiratory rate 18 /min Brett Gandhi MD Work Phone: [facility] 10-10-2022 13:10-0500 SaO2% (BldA) [Mass fraction] 97 % Brett Gandhi MD Work Phone: [facility] 10-10-2022 13:10-0500 Systolic blood pressure 115 mm[Hg] Brett Gandhi MD Work Phone: [facility] 04-17-2022 15:33-0400 Body temperature 97 [degF] Quinn Becerra PET CARE ASSISTANT.[employer] Work Phone: [facility] 04-17-2022 15:33-0400 Body weight 85.73 kg Quinn Becerra PET CARE ASSISTANT.[employer] Work Phone: [facility] 04-17-2022 15:33-0400 Diastolic blood pressure 72 mm[Hg] Quinn Becerra PET CARE ASSISTANT.[employer] Work Phone: [facility] 04-17-2022 15:33-0400 Heart rate 84 /min Quinn Quigleyrose PET CARE ASSISTANT.[employer] Work Phone: [facility] 04-17-2022 15:33-0400 Respiratory rate 16 /min Quinn Quigleyrose PET CARE ASSISTANT.[employer] Work Phone: [facility] 04-17-2022 15:33-0400 SaO2% (BldA) [Mass fraction] 99 % Quinn Quigleyrose PET CARE ASSISTANT.[employer] Work Phone: [facility] 04-17-2022 15:33-0400 Systolic blood pressure 124 mm[Hg] Quinn Quigleyrose PET CARE ASSISTANT.[employer] Work Phone: [facility] Encounters Encounter Date Encounter Type Care Provider Facility Start: 03-05-2023 End: 03-06-2023 Emergency department patient visit TAMIKO DAWSON [facility] Start: 10-10-2022 End: 10-10-2022 Emergency department patient visit DR ELDON COTE DO Facility:B Start: 10-10-2022 End: 10-10-2022 Emergency department patient visit JULIA TILLEY DO [facility] Start: 10-10-2022 End: 10-10-2022 ambulatory BRETT GANDHI Facility:[id number] Start: 10-10-2022 End: 10-10-2022 Patient encounter procedure Brett Gandhi MD Work Phone: [facility] [place] Procedures Date Procedure Procedure Detail Performing Clinician Start: 03-06-2023 Urinalysis TAMIKO BERTRAND Plan of Treatment Date Care Activity Detail Author Start: 10-26-2025 Urine microalbumin profile DTAP,TDAP,TD (7 - Td or Tdap) [facility] Start: 09-14-2024 PAP TESTING PAP TESTING [facility] Start: 10-09-2022 DEPRESSION ASSESSMENT DEPRESSION ASSESSMENT [facility] Start: 06-09-2022 Influenza vaccination INFLUENZA (#1) [facility] Start: 2011 HEPATITIS C SCREENING HEPATITIS C SCREENING [facility] Start: 2005 Adult depression screening assessment DEPRESSION SCREENING [facility] Start: 1999 PNEUMOCOCCAL (1 - PCV) PNEUMOCOCCAL (1 - PCV) [facility] ic Start: 05-15-1994 COVID-19 VACCINE (#1) COVID-19 VACCINE (#1) [facility] Bacteria identified in Urine by Culture URINE CULTURE Microbiology Routine Urinary frequency 04/17/2022 3:37 PM EDT [facility] Work Phone: Immunizations Immunization Date Immunization Notes Care Provider Fa robert 09-04-2021 influenza, injectabl e, quadrivalent, preservative free Quinn Becerra PET CARE ASSISTANT.[facility] Work Phone: [facility] Work Phone: 08-13-2020 influenza, injectabl e, quadrivalent, preservative free; Translations: [Fluarix PF Quadrivalent ] Quinn Becerra PET CARE ASSISTANT.[facility] Work Phone: [facility] Work Phone: 09-26-2017 RHO(D) immune globulin- IV or IM Quinn Becerra PET CARE ASSISTANT.[facility] Work Phone: [facility] Work Phone: 07-08-2017 influenza, seasonal, injectable, preservative free Quinn Becerra PET CARE ASSISTANT.[facility] Work Phone: [facility] Work Phone: 07-06-2017 influenza, injectabl e, quadrivalent, contains preservative Quinn Becerra PET CARE ASSISTANT.[facility] Work Phone: [facility] 10-26-2015 tetanus toxoid, reduced diphtheria toxoid, and acellular pertussis vaccine, adsorbed Quinnirasema Becerra PET CARE ASSISTANT.[facility] Work Phone: [facility] Work Phone: 05-11-1999 diphtheria, tetanus toxoids and pertussis vaccine Quinn Becerra PET CARE ASSISTANT.[facility] Work Phone: [facility] Work Phone: 05-11-1999 measles, mumps and rubella virus vaccine Quinn Becerra PET CARE ASSISTANT.[facility] Work Phone: [facility] Work Phone: 06-29-1995 diphtheria, tetanus toxoids and pertussis vaccine Quinn Pendlebury PET CARE ASSISTANT.[facility] Work Phone: [facility] Work Phone: 06-29-1995 measles, mumps and rubella virus vaccine Quinn Pendlebury PET CARE ASSISTANT.[facility] Work Phone: [facility] Work Phone: 06-29-1995 trivalent poliovirus vaccine, live, oral Quinn Pendlebury PET CARE ASSISTANT.[facility] Work Phone: [facility] Work Phone: 08-15-1994 hepatitis B vaccine, pediatric or pediatric/adolescent dosage Quinn Pendlebury PET CARE ASSISTANT.[facility] Work Phone: [facility] Work Phone: 05-17-1994 diphtheria, tetanus toxoids and pertussis vaccine Quinn Pendlebury PET CARE ASSISTANT.[facility] Work Phone: [facility] Work Phone: 05-17-1994 haemophilus influenz ae type b vaccine, conjugate unspecified formulation Quinn Pendlebury PET CARE ASSISTANT.[facility] Work Phone: [facility] Work Phone: 05-17-1994 trivalent poliovirus vaccine, live, oral Quinn Pendlebury PET CARE ASSISTANT.[facility] Work Phone: [facility] Work Phone: 03-17-1994 diphtheria, tetanus toxoids and pertussis vaccine Quinn Pendlebury PET CARE ASSISTANT.[facility] Work Phone: [facility] Work Phone: 03-17-1994 haemophilus influenz ae type b vaccine, conjugate unspecified formulation Quinn Pendlebury PET CARE ASSISTANT.[facility] Work Phone: [facility] Work Phone: 03-17-1994 trivalent poliovirus vaccine, live, oral Quinn Pendlebury PET CARE ASSISTANT.[facility] Work Phone: [facility] Work Phone: 01-11-1994 diphtheria, tetanus toxoids and pertussis vaccine Quinnirasema Becerra PET CARE ASSISTANT.[employer] Work Phone: [facility] Work Phone: 01-11-1994 haemophilus influenz ae type b vaccine, conjugate unspecified formulation Quinn Becerra PET CARE ASSISTANT.[employer] Work Phone: [facility] Work Phone: 01-11-1994 hepatitis B vaccine, pediatric or pediatric/adolescent dosage Quinn Becerra PET CARE ASSISTANT.[employer] Work Phone: [facility] Work Phone: 01-11-1994 trivalent poliovirus vaccine, live, oral Quinn Becerra PET CARE ASSISTANT.[employer] Work Phone: [facility] Work Phone: 1993 hepatitis B vaccine, pediatric or pediatric/adolescent dosage Quinn Becerra PET CARE ASSISTANT.[employer] Work Phone: [facility] Work Phone: Payers Date Payer Category Payer Medicaid [employer] [id number] 2003-Present [phone] [address] [place] [address] Medicaid [id number] 2003 Medicaid [id number] 2003 Medicaid [employer] [id number] 2003-Present [phone] [address] [place] [address] Medicaid [id number] 1993 Unknown [id number] 1993 Unknown [id number] Social History Date Type Detail Facility Start: 07-15-2019 End: 10-10-2022 Tobacco smoking status NHIS Smokes tobacco daily [facility] Work Phone: History of tobacco use Cigarette Smoker C [facility] Work Phone: Start: 07-15-2019 End: 10-10-2022 Cigarettes smoked current (pack per day) - Reported 0.5 [facility] Start: 07-15-2019 End: 10-10-2022 Tobacco use and exposure Smokeless tobacco non-user [facility] Work Phone: Start: 04-17-2022 End: 10-10-2022 Alcohol intake Current non-drinker of alcohol (finding) [facility] Start: 1995 Sex Assigned At Female [facility] Start: 04-07-2022 End: 04-17-2022 Exposure to SARS-CoV-2 (event) Not sure [facility] Work Phone: Tobacco Nicotine Use: Va ping Product in Last 90 Days. [facility] Tobacco smoking status Occasiona l tobacco smoker (finding) [facility] Functional Status Date Assessment Result Facility 10-10-2022 Functional Status Standard Safet y ID band on, Call device within reach, Bed in low position, Wheels locked, Upper/Half-Length side-rails up, Bedside Cart Locked, Safety level maintained [facility] Mental Status Date Assessment Result Facility 10-10-2022 Mental Status Orientation Oriented x 4 [facility] Clinical Notes 11-23-2017 to 03-10-2023 Brett Gandhi MD - 10/10/2022 1:51 PM ESTPatient Dexter Becerra APRN.CNP - 04/17/2022 3:39 PM EDT Note Date & Type Note Facility 03-10-2023 Note . MICRO - Microbiology PROCEDURE: Blood Culture (bacterial) [*1] SOURCE: Blood BODY SITE: COLLECTED DATE/TIME: 03/05/2023 23:56 EDT RECEIVED DATE/TIME: 03/06/2023 23:16 EDT START DATE/TIME: 03/06/2023 23:16 EDT FREE TEXT SOURCE: FINAL REPORTS Final Report [] Verified Date/Time/Personnel: 03/10/2023 10:08 EDT Escherichia coli Isolated from aerobe bottle only. Refer to previous culture for susceptibility. [id number] PRELIMINARY REPORTS Preliminary Report [] Verified Date/Time/Personnel: 03/06/2023 23:59 EDT Culture has been received in lab and is no growth to date. Routine cultures are held for 5 days. STAINS GSAER [] Verified Date/Time/Personnel: 03/09/2023 04:30 EDT Gram Negative Rods Performing Locations *1: This test was performed at: [facility], [address] [place] [address], [facility] , [facility] 03-10-2023 Note . MICRO - Microbiology PROCEDURE: Blood Culture (bacterial) [*1] SOURCE: Blood BODY SITE: COLLECTED DATE/TIME: 03/05/2023 23:55 EDT RECEIVED DATE/TIME: 03/06/2023 23:16 EDT START DATE/TIME: 03/06/2023 23:16 EDT FREE TEXT SOURCE: FINAL REPORTS Final Report [] Verified Date/Time/Personnel: 03/10/2023 07:54 EDT Escherichia coli Isolated from anaerobe bottle only. PRELIMINARY REPORTS Preliminary Report [] Verified Date/Time/Personnel: 03/09/2023 09:49 EDT Escherichia coli Isolated from anaerobe bottle only. CAROLE to follow Preliminary Report [] Verified Date/Time/Personnel: 03/06/2023 23:59 EDT Culture has been received in lab and is no growth to date. Routine cultures are held for 5 days. STAINS GSANA [] Verified Date/Time/Personnel: 03/08/2023 01:34 EDT Gram Negative Rods SUSCEPTIBILITY RESULTS Escherichia coli Antibiotic CAROLE Dilut CAROLE Inter Amikacin <=16 Susceptible Amoxicillin/ <=8/4 Susceptible Clavulanate Ampicillin <=8 Susceptible Ampicillin/ <=4/2 Susceptible Sulbactam Aztreonam <=4 Susceptible Cefazolin <=2 Susceptible Cefotaxime <=2 Susceptible Ciprofloxacin <=0.25 Susceptible Ertapenem <=0.5 Susceptible Gentamicin <=2 Susceptible Imipenem <=1 Susceptible Levofloxacin <=0.5 Susceptible Meropenem <=1 Susceptible Minocycline <=4 Susceptible Moxifloxacin <=2 Susceptible Piperacillin/ <=8 Susceptible Tazobactam Tetracycline <=4 Susceptible Trimethoprim/ <=0.5/9.5 Susceptible Sulfa Performing Locations *1: This test was performed at: [address], [facility] , [facility] 10-16-2022 Note . MICRO - Microbiology PROCEDURE: Culture Wound Deep Aerobe/Anaerobe w Gram Stain [*1] SOURCE: Wound (deep) BODY SITE: Hand R COLLECTED DATE/TIME: 10/10/2022 18:43 EST RECEIVED DATE/TIME: 10/11/2022 14:27 EST START DATE/TIME: 10/11/2022 14:27 EST FREE TEXT SOURCE: only recd an aerobic swab FINAL REPORTS Final Report [] Verified Date/Time/Personnel: 10/16/2022 10:44 EST Light Group A Beta Hemolytic Strep (Strep pyogenes) Sensitivity testing is not recommended for one of the following reasons: 1. Established susceptibility patterns are available or 2. Interpretative criteria are not available. No anaerobes isolated at 5 days. PRELIMINARY REPORTS Preliminary Report [] Verified Date/Time/Personnel: 10/12/2022 08:43 EST Light Group A Beta Hemolytic Strep (Strep pyogenes) Sensitivity testing is not recommended for one of the following reasons: 1. Established susceptibility patterns are available or 2. Interpretative criteria are not available. No anaerobes isolated to date. STAINS GS [] Verified Date/Time/Personnel: 10/11/2022 17:07 EST 2+ Polymorphonuclear cells 1+ Mononuclear cells 2+ Gram Positive Cocci Performing Locations *1: This test was performed at: [address], [address]- , [facility] ([place] 10-10-2022 Hospital Discharge instructions Patient Education 10/10/2022 18:53:06 Addiction: Your Treatment Options Addiction: Your Treatment Options No single treatment for addiction works for everyone. The treatment that's best for you can depend on many factors. For many people, treatment may be a combination of medicine, behavior change, therapy, lifestyle changes, and support. Medicines Medicines can help with withdrawal symptoms. They can also reduce cravings for the addictive substance. They can blunt its feel-good effects. For example: Methadone, buprenorphine, and naltrexone are used for heroin and other opioid addiction. Acamprosate, disulfiram, and naltrexone are used for treating alcohol addiction. Bupropion, varenicline, or nicotine replacement therapy can help with nicotine addiction. These medicines have proved to be quite helpful for people trying to overcome an addiction. Behavior change treatment Motivational Interviewing. This is a type of counseling that encourages you to change your behavior. The goal is to explore and resolve any mixed feelings you have about quitting drug or alcohol use. The therapist helps you figure out and focus on your personal reasons for wanting to change. Cognitive behavioral therapy (CBT). In this therapy, you figure out your problem behaviors. And you learn ways to change those behaviors. For example, if anger or stress makes you want to drink, a therapist can help you learn healthy ways to manage those feelings. Community reinforcement approach (SPORTS BOOK SERVER). This therapy uses vouchers help you follow a drug- or alcohol-free lifestyle. With each clean urine sample, you get a voucher to use for a reward. This helps you stay drug- or alcohol-free while you learn new life skills. Community reinforcement and family training (CRAFT). This therapy counsels and trains your family. The therapist teaches them how to motivate you to seek or continue treatment. This therapy also helps your family recognize family situations that may encourage you to drink or use drugs. [place] support groups. These groups are run voluntarily by non-health manager urgent care people. Their purpose is to support each other emotionally and socially by sharing their experiences with substance abuse and mentoring others through the recovery process. Many of these groups are based on the 12-step recovery model, and have sessions available for every type of addiction (for example, AA or Alcoholics Anonymous; NA or Narcotics Anonymous). Individualized drug counseling (IDC). This commonly practiced form of therapy typically incorporate the disease model of addiction and the spiritual dimension of recovery while also focusing on behavioral change through participation in 12-step programs. [id number] [employer]. [address] [place] [address]. All rights reserved. This information is not intended as a substitute for professional medical care. Always follow your healthcare professional's instructions. 10/10/2022 18:53:05 Addiction: Getting Help Addiction: Getting Help It was hard to admit that I had a problem. But when I did, I had to get help. Admitting that you have a problem with alcohol or drugs isn t easy. It takes courage and honesty. But once you re ready to look at your use, you ve taken a big step toward getting over the problem. When you face your problem, you also accept that you re accountable for your actions and for changing them. There are many programs and people who can help you. And keep in mind, it s OK to get help. It s also the first step to getting your life back together. Getting help and support Recovery doesn t happen right away. It s a long process. There are many steps along the way. During those steps, you ll work on changing the things that were part of your problem. A counselor or other healthcare provider can help you. So can a hydraulics teacher, industrial technologist, or rabbi who is trained in substance abuse counseling. Friends and family may also help once you are working with experts. Together you can make changes needed for success. This can help you to have a positive and rewarding life. [phone] [employer]. [address] [place] [address]. All rights reserved. This information is not intended as a substitute for professional medical care. Always follow your healthcare professional's instructions. Follow Up Care 10/10/2022 15:20:22 With:[facility] Address: [address] [place] [address] [phone] Business (1) When:2-4 days With:ELDON COTE Address: [address] [facility] [place] [address]- [phone] Business (1) When:2-4 days With:Gunjan Sullivan Pt. Refferral [phone] Address:Unknown When:2-4 days [facility] 10-10-2022 Emergency department Discharge summary Discharge Instructions Thank you for allowing [facility] to assist you with your healthcare needs. The following is important discharge information regarding your hospital visit. Diagnosis from Today's Visit Abscess - simple What to Do Next Instructions from Your Care Team No qualifying data available. Post Acute Orders No qualifying data available. You Need to Schedule the Following Appointments Follow Up with [facility] When Within 2-4 days Where: [address] [place] [address]- [phone] Business (1) Follow Up with ELDON COTE When Within 2-4 days Where: [address] [facility] [place] [address]- [phone] Business (1) Follow Up with Call [facility] New Pt. Refferral [phone] When Within 2-4 days Allergies NKA Medications Please ask your primary doctor or pharmacist before taking any other medication not listed, including over the counter drugs, herbal medications, vitamins and or supplements as they may interact with your home medications. What How Much When Instructions Last Dose New clindamycin (clindamycin 300 mg oral capsule) 1 cap by mouth Every 6 hours Duration: 10 Days Printed Prescription New naproxen (naproxen 500 mg oral tablet) 1 tab(s) by mouth Two (2) times a day Duration: 7 Days Printed Prescription Unchanged ARIPiprazole (ARIPiprazole 2 mg oral tablet) TAKE 1 TABLET BY MOUTH EVERY DAY Unchanged ARIPiprazole (ARIPiprazole 5 mg oral tablet) Unchanged hydrOXYzine (hydrOXYzine hydrochloride 25 mg oral tablet) Unchanged meloxicam (meloxicam 7.5 mg oral tablet) 1 tab(s) by mouth Once a day Unchanged meloxicam (meloxicam 7.5 mg oral tablet) Unchanged venlafaxine (Effexor XR 37.5 mg oral capsule, extended release) 1 cap by mouth Once a day with a meal Unchanged venlafaxine (venlafaxine 150 mg oral capsule, extended release) Please take this list to your next doctor s visit. Bring all medications you take, including over the counter medications, herbals and other supplements with you to your doctor s visit. Patients and families are reminded to discard old lists and to update any records with all medication providers or retail pharmacies. Education Materials Addiction: Your Treatment Options No single treatment for addiction works for everyone. The treatment that's best for you can depend on many factors. For many people, treatment may be a combination of medicine, behavior change, therapy, lifestyle changes, and support. Medicines Medicines can help with withdrawal symptoms. They can also reduce cravings for the addictive substance. They can blunt its feel-good effects. For example: Methadone, buprenorphine, and naltrexone are used for heroin and other opioid addiction. Acamprosate, disulfiram, and naltrexone are used for treating alcohol addiction. Bupropion, varenicline, or nicotine replacement therapy can help with nicotine addiction. These medicines have proved to be quite helpful for people trying to overcome an addiction. Behavior change treatment Motivational Interviewing. This is a type of counseling that encourages you to change your behavior. The goal is to explore and resolve any mixed feelings you have about quitting drug or alcohol use. The therapist helps you figure out and focus on your personal reasons for wanting to change. Cognitive behavioral therapy (CBT). In this therapy, you figure out your problem behaviors. And you learn ways to change those behaviors. For example, if anger or stress makes you want to drink, a therapist can help you learn healthy ways to manage those feelings. Community reinforcement approach (SPORTS BOOK SERVER). This therapy uses vouchers help you follow a drug- or alcohol-free lifestyle. With each clean urine sample, you get a voucher to use for a reward. This helps you stay drug- or alcohol-free while you learn new life skills. Community reinforcement and family training (CRAFT). This therapy counsels and trains your family. The therapist teaches them how to motivate you to seek or continue treatment. This therapy also helps your family recognize family situations that may encourage you to drink or use drugs. [place] support groups. These groups are run voluntarily by non-health manager urgent care people. Their purpose is to support each other emotionally and socially by sharing their experiences with substance abuse and mentoring others through the recovery process. Many of these groups are based on the 12-step recovery model, and have sessions available for every type of addiction (for example, AA or Alcoholics Anonymous; NA or Narcotics Anonymous). Individualized drug counseling (IDC). This commonly practiced form of therapy typically incorporate the disease model of addiction and the spiritual dimension of recovery while also focusing on behavioral change through participation in 12-step programs. [phone] [employer]. [address] [place] [address]. All rights reserved. This information is not intended as a substitute for professional medical care. Always follow your healthcare professional's instructions. Addiction: Getting Help It was hard to admit that I had a problem. But when I did, I had to get help. Admitting that you have a problem with alcohol or drugs isn t easy. It takes courage and honesty. But once you re ready to look at your use, you ve taken a big step toward getting over the problem. When you face your problem, you also accept that you re accountable for your actions and for changing them. There are many programs and people who can help you. And keep in mind, it s OK to get help. It s also the first step to getting your life back together. Getting help and support Recovery doesn t happen right away. It s a long process. There are many steps along the way. During those steps, you ll work on changing the things that were part of your problem. A counselor or other healthcare provider can help you. So can a hydraulics teacher, industrial technologist, or rabbi who is trained in substance abuse counseling. Friends and family may also help once you are working with experts. Together you can make changes needed for success. This can help you to have a positive and rewarding life. [phone] [employer]. [address] [place] [address]. All rights reserved. This information is not intended as a substitute for professional medical care. Always follow your healthcare professional's instructions. Additional Information VACCINATE! IT SAVES LIVES! Members of the community who have not yet received the COVID-19 vaccine and would like to receive it can visit one of [facility] vaccine clinics. There are many vaccine clinic locations within the [facility]. For locations and available times, please visit [email or web address]. It is important to note that some COVID mobile vaccine clinics are held outdoors and may be canceled in rainy or stormy conditions. To learn more about pediatric vaccinations (ages 5-11), we invite you to visit the [facility] webpage. [email or web address] [email or web address]-[email or web address]-Freq [email or web address] To learn more about the COVID-19 vaccine, we invite you to visit the [facility] website for a list of frequently asked questions. [email or web address] [email or web address] [facility] Patient Portal Access Instructions: Stay connected with your healthcare team and access your personal medical information anytime with the [employer] Patient Portal. If you would like a full copy of your medical records please contact the [facility] Medical Records Department Monday through Monday between 8a.m. and 4:30p.m. Please follow the directions below to access the portal: 1.Access the email account you provided upon registration to the [facility].2.Look for an invitation email from [facility].3.Open the email and access the invitation link: Accept Invitation to [facility].Fill in the required barragan to create your account. Sign into [email or web address] with your username and password that you created in the above steps to stay up to date. You can then view a summary of results, a summary of your visits, and the ability to download your summaries to your computer or send the information securely to a physician. Remember that your healthcare information is confidential, so carefully consider who you will allow to register on the [facility] Patient Portal for access to your information. You can also access the [facility] Patient Portal on the [employer]. Simply click on Health Records under Health Data and then click on the [employer] logo. HOW TO SAFELY DISPOSE OF PRESCRIPTION MEDICATIONS Please use one of the following methods to safely dispose of your unused medications. 1.Use a drug disposal kit: the drug disposal pouch allows you to safely discard your old and unused drugs. Ask your nurse to give you one when you are discharged.2.Visit a local take-back location: Many local pharmacies and police departments have programs that collect old and unwanted prescription drugs. Call your local pharmacy or go to http://bit.[employer]/1P0Cm5p to find one close to you.3.Make use of household items: Use cat litter or old coffee grounds to dispose medications if other options are not available. Mix your drugs with these household products, seal them in an airtight container and throw it into the garbage. Call [facility]: [phone] to be sure your drugs can be disposed of in this way. Some medicines may require a different approach.4.Never flush your medications down the toilet. IF YOU HAVE BEEN PRESCRIBED AN OPIOIDS FOR PAIN If you have been prescribed an opioid (such as hydrocodone, oxycodone or morphine), it is critical to understand the possible side effects and risks of opioid pain medications. Even when taken as directed, opioids can have several side effects including: Tolerance, meaning you might need to take more of a medication for the same pain relief. Nausea, vomiting and/or constipation. Sleepiness, dizziness, dry mouth, confusion, depression or itching. Physical dependence, meaning you have withdrawal symptoms when a medication is stopped ? this can develop within a few days. KNOW YOUR RESPONSIBILITIES It is important to know exactly how much and how often to take the opioid pain medications you are prescribed. Never take opioids in higher amounts or more often than prescribed. Do not combine opioids with alcohol or other drugs that cause drowsiness, such as benzodiazepines, also known as benzos, including diazepam and alprazolam, muscle relaxants or sleep aids. Never sell or share prescription opioids. This is illegal. Store opioids in a secure place and out of reach of others (including children, family, friends and visitors). The last page(s) of this document has been signed and retained as a CHART COPY Signatures Patient Education Materials Addiction: Your Treatment Options Addiction: Getting Help Medication Leaflets My discharge plan and instructions have been reviewed and explained to me and I,YULIA BRADY understand my current condition and have read and understand these discharge instructions. I have received a written copy of the plan/instructions. If I have questions, I am aware that I should contact my doctor. Patient/Collar Padder Blindstitch Signature: Date/Time: Relationship to Patient: Witness Name/Signature: Date/Time: [facility] 10-10-2022 Note HNO ID: [id number] Author: Brett Gandhi MD Service: ? Author Type: Physician Type: Progress Notes Filed: 10/10/2022 1:57 PM Note Text: Yulia Brady is a 26 year old female who presents with Derm Problem (Left wrist used IV drugs area for 3 days now she states she put meth in site) HPI patient 26-year-old female with IV drug user who presented to the [facility] this afternoon with a complaint of her left wrist swollen redness drainage for 3-day and patient has been using meth at the site and due to concern patient coming for further evaluation treatment PAST MEDICAL HISTORY Diagnosis Date Depression ACTIVE PROBLEM LIST (none) - all problems resolved or deleted Current Outpatient Medications Medication Sig Dispense Refill hydrOXYzine HCl (ATARAX) 25 mg tablet Take by mouth. ARIPiprazole (ABILIFY) 5 mg tablet Take by mouth. L. acidophilus-L. rhamnosus 15 billion cell cap Take 1 capsule by mouth once daily. FLORAJEN WOMEN. If on antibiotic, take at least 1-2 hours before or after antibiotic. KEEP REFRIGERATED (Patient not taking: Reported on 09/06/2021 ) 30 capsule 11 venlafaxine ER (EFFEXOR XR) 150 mg 24 hr capsule Take 2 capsules by mouth once daily. 0 traZODone (DESYREL) 50 mg tablet Take 0.5 tablets by mouth at bedtime as needed. 0 levonorgestrel (MIRENA) 20 mcg/24 hr (5 years) IUD Inserted in office 1 Each 0 acetaminophen (TYLENOL) 500 mg tablet Take 2 tablets by mouth every 8 hours as needed. 60 tablet 0 No current facility-administered medications for this visit. Social History Tobacco Use Smoking status: Every Day Packs/day: 0.50 Years: 3.00 Pack years: 1.50 Types: Cigarettes Smokeless tobacco: Never Vaping Use Vaping Use: Never used Substance Use Topics Alcohol use: No Drug use: Yes Types: Crystal Meth Alcohol Use: No Tobacco Use: 0.5 packs/day, for 3 years. Types: Cigarettes FAMILY HISTORY Problem Relation Age of Onset Psychiatry Father Depression Cancer Maternal Grandmother Lung Cancer Emphysema Maternal Grandfather Diabetes Maternal Grandfather Diabetes Paternal Grandfather Review of Systems Constitutional: Negative for chills, fever and malaise/fatigue. BP 115/58 Pulse 94 Temp 98 Resp 18 Wt 175 lb (79.4kg) SpO2 97% LMP 03/13/2017 Physical Exam Vitals and nursing note reviewed. Constitutional: General: She is not in acute distress. Appearance: Normal appearance. Cardiovascular: Rate and Rhythm: Regular rhythm. Heart sounds: Normal heart sounds. Pulmonary: Breath sounds: Normal breath sounds. Abdominal: Palpations: Abdomen is soft. Tenderness: There is no abdominal tenderness. Musculoskeletal: Cervical back: Normal range of motion and neck supple. Comments: Left wrist erythematous significant swelling with drainage, warm to touch, tender with palpation. Unable to except for range of motion due to pain ASSESSMENT/PLAN: 1. Cellulitis of left wrist - ICD9: 682.4, ICD10: L03.114 Complications of the disease were discussed with the patient and with clinical finding and concern, will refer the patient to ER for further evaluation and treatment patient choose to go to [facility] in [place] and patient go to ER in private car Son Kayla Gandhi MD [facility] 10-10-2022 Evaluation + Plan note Diagnostic Tests PendingCulture Wound Deep Aerobe/Anaerobe w Gram Stain 10/10/22 [facility] 10-10-2022 History of Present illness Narrative Yulia Brady is a 26 year old female who presents with Derm Problem (Left wrist used IV drugs area for 3 days now she states she put meth in site) HPI patient 26-year-old female with IV drug user who presented to the [facility] this afternoon with a complaint of her left wrist swollen redness drainage for 3-day and patient has been using meth at the site and due to concern patient coming for further evaluation treatment PAST MEDICAL HISTORY Diagnosis Date Depression ACTIVE PROBLEM LIST (none) - all problems resolved or deleted Current Outpatient Medications Medication Sig Dispense Refill hydrOXYzine HCl (ATARAX) 25 mg tablet Take by mouth. ARIPiprazole (ABILIFY) 5 mg tablet Take by mouth. L. acidophilus-L. rhamnosus 15 billion cell cap Take 1 capsule by mouth once daily. FLORAJEN WOMEN. If on antibiotic, take at least 1-2 hours before or after antibiotic. KEEP REFRIGERATED (Patient not taking: Reported on 09/06/2021 ) 30 capsule 11 venlafaxine ER (EFFEXOR XR) 150 mg 24 hr capsule Take 2 capsules by mouth once daily. 0 traZODone (DESYREL) 50 mg tablet Take 0.5 tablets by mouth at bedtime as needed. 0 levonorgestrel (MIRENA) 20 mcg/24 hr (5 years) IUD Inserted in office 1 Each 0 acetaminophen (TYLENOL) 500 mg tablet Take 2 tablets by mouth every 8 hours as needed. 60 tablet 0 No current facility-administered medications for this visit. Social History Tobacco Use Smoking status: Every Day Packs/day: 0.50 Years: 3.00 Pack years: 1.50 Types: Cigarettes Smokeless tobacco: Never Vaping Use Vaping Use: Never used Substance Use Topics Alcohol use: No Drug use: Yes Types: Crystal Meth Alcohol Use: No Tobacco Use: 0.5 packs/day, for 3 years. Types: Cigarettes FAMILY HISTORY Problem Relation Age of Onset Psychiatry Father Depression Cancer Maternal Grandmother Lung Cancer Emphysema Maternal Grandfather Diabetes Maternal Grandfather Diabetes Paternal Grandfather Review of Systems Constitutional: Negative for chills, fever and malaise/fatigue. BP 115/58 Pulse 94 Temp 98 Resp 18 Wt 175 lb (79.4kg) SpO2 97% LMP 03/13/2017 Physical Exam Vitals and nursing note reviewed. Constitutional: General: She is not in acute distress. Appearance: Normal appearance. Cardiovascular: Rate and Rhythm: Regular rhythm. Heart sounds: Normal heart sounds. Pulmonary: Breath sounds: Normal breath sounds. Abdominal: Palpations: Abdomen is soft. Tenderness: There is no abdominal tenderness. Musculoskeletal: Cervical back: Normal range of motion and neck supple. Comments: Left wrist erythematous significant swelling with drainage, warm to touch, tender with palpation. Unable to except for range of motion due to pain ASSESSMENT/PLAN: 1. Cellulitis of left wrist - ICD9: 682.4, ICD10: L03.114 Complications of the disease were discussed with the patient and with clinical finding and concern, will refer the patient to ER for further evaluation and treatment patient choose to go to [facility] in [place] and patient go to ER in private car Brett Gandhi MD documented in this encounter [facility] 04-17-2022 Note HNO ID: [id number] Author: Quinn Becerra APRN.ROUND UP RING HAND Service: ? Author Type: Nurse Practitioner Type: Progress Notes Filed: 04/17/2022 3:48 PM Note Text: Subjective HPI A nontoxic appearing female presents to urgent care with chief complaint of possible UTI. Duration of symptoms 3 days. Associated symptoms dysuria, frequency, and urgency. Patient has history of UTIs in past with similar signs and symptoms. Patient denies the use of any tyzk-diu-jmbrrfh medications or home remedies for symptom management. Patient states pain is a 3/10. Patient denies any fevers, flank pain, abdominal pain, nausea, vomiting, vaginal discharge, chance of STDs, chance of , or urological abnormalities. Past medical history prescription medication use and allergies reviewed. .Patient presents with: Urinary Frequency: burning with urination x 3 days PAST MEDICAL HISTORY Diagnosis Date - Depression PAST SURGICAL HISTORY Procedure Laterality Date - INSERTION OF IUD 01/17/2018 ALLERGIES Metronidazole MEDICATIONS cloNIDine HCl (CATAPRES) 0.1 mg tablet Take 1 tablet by mouth once daily as needed. ondansetron orally disintegrating (ZOFRAN ODT) 4 mg disintegrating tablet Take 2 tablets by mouth every 8 hours as needed for nausea/vomiting. ARIPiprazole (ABILIFY) 2 mg tablet Take 2 mg by mouth once daily. venlafaxine ER (EFFEXOR XR) 150 mg 24 hr capsule Take 2 capsules by mouth once daily. traZODone (DESYREL) 50 mg tablet Take 0.5 tablets by mouth at bedtime as needed. levonorgestrel (MIRENA) 20 mcg/24 hr (5 years) IUD Inserted in office acetaminophen (TYLENOL) 500 mg tablet Take 2 tablets by mouth every 8 hours as needed. SUBLOCADE 300 mg/1.5 mL injection phenazopyridine (PYRIDIUM) 200 mg tablet Take 1 tablet by mouth three times daily as needed. L. acidophilus-L. rhamnosus 15 billion cell cap Take 1 capsule by mouth once daily. FLORAJEN WOMEN. If on antibiotic, take at least 1-2 hours before or after antibiotic. KEEP REFRIGERATED busPIRone (BUSPAR) 10 mg tablet Take 10 mg by mouth twice daily as needed. FAMILY HISTORY Problem Relation Age of Onset - Psychiatry Father Depression - Cancer Maternal Grandmother Lung Cancer - Emphysema Maternal Grandfather - Diabetes Maternal Grandfather - Diabetes Paternal Grandfather Social History Tobacco Use - Smoking status: Current Every Day Smoker Packs/day: 0.50 Years: 3.00 Pack years: 1.50 Types: Cigarettes - Smokeless tobacco: Never Used Substance Use Topics - Alcohol use: No - Drug use: No BP 124/72 Pulse 84 Temp 36.1 ?C (97 ?F) Resp 16 Wt 85.7 kg (189 lb) LMP 03/13/2017 (Exact Date) SpO2 99% BMI 27.51 kg/m? Review of Systems Constitutional: Negative for chills, fever and malaise/fatigue. HENT: Negative for congestion, ear discharge, ear pain, sinus pain and sore throat. Eyes: Negative for blurred vision, pain, discharge and redness. Respiratory: Negative for cough, hemoptysis, sputum production, shortness of breath, wheezing and stridor. Cardiovascular: Negative for chest pain. Gastrointestinal: Negative for abdominal pain, diarrhea, nausea and vomiting. Genitourinary: Positive for dysuria, frequency and urgency. Negative for flank pain and hematuria. Musculoskeletal: Negative for myalgias. Skin: Negative for itching and rash. Neurological: Negative for dizziness and headaches. Objective Physical Exam Constitutional: General: She is not in acute distress. Appearance: She is not diaphoretic. HENT: Head: Normocephalic. Mouth/Throat: Mouth: Mucous membranes are moist. Pharynx: Oropharynx is clear. No oropharyngeal exudate or posterior oropharyngeal erythema. Eyes: Conjunctiva/sclera: Conjunctivae normal. Pupils: Pupils are equal, round, and reactive to light. Cardiovascular: Rate and Rhythm: Normal rate and regular rhythm. Heart sounds: Normal heart sounds. Pulmonary: Effort: Pulmonary effort is normal. No tachypnea, accessory muscle usage or respiratory distress. Breath sounds: Normal breath sounds. No stridor. Abdominal: General: There is no distension. Palpations: Abdomen is soft. Tenderness: There is no abdominal tenderness. There is no right CVA tenderness, left CVA tenderness or rebound. Musculoskeletal: Cervical back: Normal range of motion and neck supple. No rigidity or tenderness. Lymphadenopathy: Cervical: No cervical adenopathy. Skin: General: Skin is warm and dry. Neurological: Mental Status: She is alert and oriented to person, place, and time. ASSESSMENT/PLAN: 1. Urinary frequency - ICD9: 788.41, ICD10: R35.0 - UA DIP, URINE (POC) - URINE CULTURE Urine positive for nitrites leukocytes blood. placed on Keflex. Treated for acute cystitis. Follow-up with PCP 2 to 3 days for reevaluation. Encourage patient to follow-up for urinalysis. Patient was educated on supportive therapies. Patient will follow up with primary ca (more content not included)... [facility] 04-17-2022 Instructions Quinn Becerra APRN.ODELL - 04/17/2022 3:47 PM EDT URINARY TRACT INFECTION GENERAL INFORMATION: A urinary tract infection (UTI) is an infection of the bladder or kidneys. A bladder infection, called cystitis, is the more common type. If the infection travels up to the kidneys, it is called pyelonephritis. This can be more serious. UTIs are a common problem in women. Having sexual relations can leave a woman more susceptible to developing a UTI, but it is not sexually transmitted like gonorrhea. Some women have a problem with recurrent UTIs. INSTRUCTIONS: 1. Your doctor prescribed an antibiotic to treat the UTI. Take exactly as directed. Be sure to take all the medication prescribed, even if your symptoms disappear. If you stop treatment early, the infection may not be fully treated and the symptoms could come back again. 2. Get plenty of rest. You may take acetaminophen for fever and aches. 3. Drink 6 to 8 glasses of fluids, especially water, every day. This helps wash out germs from your urinary tract. Cranberry juice or other sources of vitamin C are also good for you. 4. Urinate often, as soon as you feel the urge. Empty your bladder completely. Urinate before and after you have sex. 5. Always wipe from front to back after going to the bathroom. This pushes germs away from your bladder, rather than towards it. 6. Showers are better than baths, and you should wash the genital area daily. Avoid bubble bath or bath oils if you do take a bath. 7. Wear underwear and pantyhose with a cotton crotch. CONTACT YOUR DOCTOR: 1. You have a temperature over 102F (38.8C) after 48 hours on medication. 2. You notice blood in your urine. 3. Your symptoms don't improve in 2 days. 4. You develop nausea, vomiting, diarrhea, or a rash. 5. You develop new or unexplained symptoms. These may be related to the medication you are taking. 6. Your symptoms return after you finish treatment. RETURN TO THE EMERGENCY DEPARTMENT IF: You develop vomiting and can't keep your medication or fluids down. documented in this encounter [facility] 04-17-2022 History of Present illness Narrative Subjective HPI A nontoxic appearing female presents to urgent care with chief complaint of possible UTI. Duration of symptoms 3 days. Associated symptoms dysuria, frequency, and urgency. Patient has history of UTIs in past with similar signs and symptoms. Patient denies the use of any ijzl-pjw-tnfcgrx medications or home remedies for symptom management. Patient states pain is a 3/10. Patient denies any fevers, flank pain, abdominal pain, nausea, vomiting, vaginal discharge, chance of STDs, chance of , or urological abnormalities. Past medical history prescription medication use and allergies reviewed. .Patient presents with: Urinary Frequency: burning with urination x 3 days PAST MEDICAL HISTORY Diagnosis Date Depression PAST SURGICAL HISTORY Procedure Laterality Date INSERTION OF IUD 01/17/2018 ALLERGIES Metronidazole MEDICATIONS cloNIDine HCl (CATAPRES) 0.1 mg tablet Take 1 tablet by mouth once daily as needed. ondansetron orally disintegrating (ZOFRAN ODT) 4 mg disintegrating tablet Take 2 tablets by mouth every 8 hours as needed for nausea/vomiting. ARIPiprazole (ABILIFY) 2 mg tablet Take 2 mg by mouth once daily. venlafaxine ER (EFFEXOR XR) 150 mg 24 hr capsule Take 2 capsules by mouth once daily. traZODone (DESYREL) 50 mg tablet Take 0.5 tablets by mouth at bedtime as needed. levonorgestrel (MIRENA) 20 mcg/24 hr (5 years) IUD Inserted in office acetaminophen (TYLENOL) 500 mg tablet Take 2 tablets by mouth every 8 hours as needed. SUBLOCADE 300 mg/1.5 mL injection phenazopyridine (PYRIDIUM) 200 mg tablet Take 1 tablet by mouth three times daily as needed. L. acidophilus-L. rhamnosus 15 billion cell cap Take 1 capsule by mouth once daily. FLORAJEN WOMEN. If on antibiotic, take at least 1-2 hours before or after antibiotic. KEEP REFRIGERATED busPIRone (BUSPAR) 10 mg tablet Take 10 mg by mouth twice daily as needed. FAMILY HISTORY Problem Relation Age of Onset Psychiatry Father Depression Cancer Maternal Grandmother Lung Cancer Emphysema Maternal Grandfather Diabetes Maternal Grandfather Diabetes Paternal Grandfather Social History Tobacco Use Smoking status: Current Every Day Smoker Packs/day: 0.50 Years: 3.00 Pack years: 1.50 Types: Cigarettes Smokeless tobacco: Never Used Substance Use Topics Alcohol use: No Drug use: No BP 124/72 Pulse 84 Temp 36.1 C (97 F) Resp 16 Wt 85.7 kg (189 lb) LMP 03/13/2017 (Exact Date) SpO2 99% BMI 27.51 kg/m Review of Systems Constitutional: Negative for chills, fever and malaise/fatigue. HENT: Negative for congestion, ear discharge, ear pain, sinus pain and sore throat. Eyes: Negative for blurred vision, pain, discharge and redness. Respiratory: Negative for cough, hemoptysis, sputum production, shortness of breath, wheezing and stridor. Cardiovascular: Negative for chest pain. Gastrointestinal: Negative for abdominal pain, diarrhea, nausea and vomiting. Genitourinary: Positive for dysuria, frequency and urgency. Negative for flank pain and hematuria. Musculoskeletal: Negative for myalgias. Skin: Negative for itching and rash. Neurological: Negative for dizziness and headaches. Objective Physical Exam Constitutional: General: She is not in acute distress. Appearance: She is not diaphoretic. HENT: Head: Normocephalic. Mouth/Throat: Mouth: Mucous membranes are moist. Pharynx: Oropharynx is clear. No oropharyngeal exudate or posterior oropharyngeal erythema. Eyes: Conjunctiva/sclera: Conjunctivae normal. Pupils: Pupils are equal, round, and reactive to light. Cardiovascular: Rate and Rhythm: Normal rate and regular rhythm. Heart sounds: Normal heart sounds. Pulmonary: Effort: Pulmonary effort is normal. No tachypnea, accessory muscle usage or respiratory distress. Breath sounds: Normal breath sounds. No stridor. Abdominal: General: There is no distension. Palpations: Abdomen is soft. Tenderness: There is no abdominal tenderness. There is no right CVA tenderness, left CVA tenderness or rebound. Musculoskeletal: Cervical back: Normal range of motion and neck supple. No rigidity or tenderness. Lymphadenopathy: Cervical: No cervical adenopathy. Skin: General: Skin is warm and dry. Neurological: Mental Status: She is alert and oriented to person, place, and time. ASSESSMENT/PLAN: 1. Urinary frequency - ICD9: 788.41, ICD10: R35.0 - UA DIP, URINE (POC) - URINE CULTURE Urine positive for nitrites leukocytes blood. placed on Keflex. Treated for acute cystitis. Follow-up with PCP 2 to 3 days for reevaluation. Encourage patient to follow-up for urinalysis. Patient was educated on supportive therapies. Patient will follow up with primary care provider as needed. Patient was instructed to immediately proceed to emergency room for any new, worsening, or symptoms lasting longer than anticipated. The patient's clinical presentation is otherwise unremarkable at this time. Based on exam and clinical finding, the patient is stable for discharge. Plan of care was discussed with patient. Patient verbalizes understanding and agrees to plan of care. This note was generated using [employer] software. It may contain errors in wording, punctuation, or spelling. Quinn Becerra APRN.ODELL documented in this encounter [facility] documented as of this encounter (statuses as of 04/17/2022) [facility]02-15-2018 History of Past illness Narrative* Problem Noted Date Resolved Date GBS (group B streptococcus) infection 11/23/2017 01/17/2018 with history of ectopic , ant epartum 04/20/2017 01/17/2018 Overview: 04/20/2017Patient here with FOB. She is with a history of an ectopic 01/2017 treated by [facility]. She states she took medication for 14 days and had to do bloodwork until the HCG returned to zero. Patient instructed to sign a release of records form to obtain her medical records from [facility]. Patient oswald she had one spot of pink blood after intercourse yesterday. Denies any other bleeding this . Discussed with Dr Farris. Serial Quantitative HCG's ordered. Ectopic precautions given. Patient to call/come in if she develops any pain or cramping, any further bleeding or PRN problems.TKRN History of depression 04/20/2017 01/17/2018 Overview: 04/20/2017Pt has a history of depression diagnosed at age 13 [address] Islas. She currently takes Effexor. She states Dr Islas has told her to continue medication at this time and discuss with OB doctor. Discussed increased risks of depression during and and importance of reporting the development or worsening of symptoms should they occur.Pt denies ever having any suicidal thoughts or tendencies or thoughts of hurting others.TKRN Family history of defects 04/20/2017 01/17/2018 Overview: 04/20/2017 Patient's 1st cousin with spina bifida and another 1st cousin with autism and Fragile X.TKRN Patient requested diagnostic testing 04/20/2017 01/17/2018 Overview: 04/20/2017 Patient desires nuchal ultrasound.TKRN documented as of this encounter (statuses as of 10/13/2022) [facility] Urinary frequency- [facility] Cellulitis of left wrist- [facility] N[facility] No data available for this section [facility] Summary Purpose Family History No Family History Records FoundNo Family History Records FoundNo Family History Records FoundNo Family History Records FoundNo Family History Records Found Advance Directives No Advanced Directives Records FoundNo Advanced Directives Records FoundNo Advanced Directives Records FoundNo Advanced Directives Records FoundNo Advanced Directives Records Found Hospital Course Note [facility] [address] [place] [address] NAME YULIA BRADY [facility] [id number] 1995 ADMIT 08/13/2018 DISCH 08/17/2018 DISCHARGE SUMMARY REASON FOR ADMISSION Yulia Brady is a 22 years young single female who was admitted as an emergency with history of increasing depression since the of her only child and feeling overwhelmed with everyday stressors. Prior to this admission, she was receiving outpatient treatment and prescribed Effexor, which was recently increased to 225 mg a day. She reported history of recurrent episodes of depression since the age of 10 years when she was first admitted to [facility] for depression and prescribed Lexapro. Since then, she has also been treated with Prozac, Zoloft and more recently Effexor. LABORATORY DATA Unremarkable. HOSPITAL COURSE During her brief hospital stay, she made slow but steady improvement with significant reduction in recurrent intrusive, obsessive thinkin (more content not included)... Additional Source Comments INFORMATION SOURCE (unrecogn ized section and content) DATE CREATED AUTHOR AUTHOR'S ORGANIZ ATION 10/10/2022 [facility] DATE CREATED AUTHOR AUTHOR'S ORGANIZ ATION 03/20/2023 [facility] ([place]) DATE CREATED AUTHOR AUTHOR'S ORGANIZ ATION 03/20/2023 [facility] DATE CREATED AUTHOR AUTHOR'S ORGANIZ ATION 03/20/2023 [facility] Source Comments (unrecognize d section and content) In the event this informatio n is protected by the Federal Confidentiality of Alcohol and Drug Abuse Patient Records regulations: The Federal rules restrict any use of the information to criminally investigate or prosecute any alcohol or drug abuse patient.[facility] the event this information is protected by the Federal Confidentiality of Alcohol and Drug Abuse Patient Records regulations: The Federal rules restrict any use of the information to criminally investigate or prosecute any alcohol or drug abuse patient.[facility] Reason for Visit (unrecogniz ed section and content) Reason Comments Derm Problem Left wrist used IV d rugs area for 3 days now she states she put meth in site Care Team (unrecognized sect ion and content) Care Team Personnel Name: ELDON COTE DO Position: P4 Physician - Primary Care Member Role: Primary Care Physician Address: Address: [address] [place] [id number] Name: Dot Garcia Position: P3 Scheduling - Sprinkler Inspector Advanced Member Role: Other Care Team Related Persons Name: WILLY BRADY FOR RECORDS PERTAINING TO PATIENTS WHO ARE OR HAVE BEEN ENROLLED IN A CHEMICAL DEPENDENCY/SUBSTANCEABUSE PROGRAM, SOME INFORMATION MAY BE OMITTED. This clinical summary was aggregated from multiple sources. Caution should be exercised in using it in the provision of clinical care. This summary normalizes information from multiple sources, and as a consequence, information in this document may materially change the coding, format and clinical context of patient data. In addition, data may be omitted in some cases. CLINICAL DECISIONS SHOULD BE BASED ON THE PRIMARY CLINICAL RECORDS. [facility]. provides no warranty or guarantee of the accuracy or completeness of information in this document.
[2023-11-25 16:36] LABS: Anion Gap 9 (5-15); BUN 16 mg/dL (7-18); BUN/Creat Ratio 21.6 RATIO (10-20); Calcium,Total 9.5 mg/dL (8.5-10.1); Chloride 109 mmol/L (98-107); Creatinine, Serum 0.74 mg/dL (0.55-1.02); EST Glomerular Filtration Rate 98 mL/min (>60); Est Glom Filt Rate - Afr Amer 118 mL/min (>60); Estimated Creatinine Clearance 107.22 ml/min; Glucose 79 mg/dL (74-106); Potassium 3.7 mmol/L (3.5-5.1); Sodium Level 138 mmol/L (136-145); Troponin-I HS 6 pg/mL (3.0-54.0)
[2023-11-25 16:37] LABS: CPK Total, Creatine Kinase 230 U/L (26-192)
[2023-11-25 16:39] LABS: Internal QC Validated? YES +Cl - CLEAR BKGD; Pregnancy, Serum, hCG Quali. NEGATIVE Negative
[2023-11-25 16:42] LABS: Alcohol, Blood (Medical)-Serum < 3.0 mg/dL
[2023-11-25 16:44] VITALS: BP 113/67; PULSE 95; RESP 21
[2023-11-25 17:44] LABS: Amphetamine Urine VISTA POSITIVE (<1000 ng/mL); Barbiturate Urine VISTA NEGATIVE (< 200 ng/mL); Benzodiazepine Urine VISTA NEGATIVE (< 200 ng/mL); Cocaine Urine VISTA NEGATIVE (< 300 ng/mL); Ecstacy Urine VISTA POSITIVE (< 500 ng/mL); Methadone Urine VISTA NEGATIVE (< 300 ng/mL); PCP Urine VISTA NEGATIVE (< 25 ng/mL); THC Urine VISTA NEGATIVE (< 50 ng/mL); Vista UDS pH Range 6
[2023-11-25 18:00] VITALS: PULSE 85; RESP 14
[2023-11-25 20:00] VITALS: BP 99/55; PULSE 78; RESP 18
[2023-11-25 22:00] VITALS: BP 102/62; PULSE 82; RESP 18; O2SAT 100
--- NOTE | 2023-11-25 22:00 | ED.RN ---
THIS RN AND ADDITIONAL RN ATTEMPTED TO WAKE PATIENT UP FOR ANTICIPATION FOR DISCHARGE. PT RESPONSIVE TO PAIN, WILL MOAN AND WITHDRAWAL. HOWEVER, PATIENT WILL NOT ANSWER QUESTIONS OR FOLLOW COMMANDS. PT UP TO RESTROOM, UNSTEADY ON FEET. CONTINUES TO NOT FOLLOW DIRECTION OR COMMANDS. MD CONTRERAS
[2023-11-26] VITALS: BP 107/67; PULSE 82; RESP 18; O2SAT 98
[2023-11-26 02:29] VITALS: BP 96/72; PULSE 61; RESP 16; TEMP 36.2; O2SAT 96
== END 2023-11-26 02:31 | disposition home or self-care (01) ==
LOC: ED 16:24
PROVIDERS: Emergency Provider Emergency Medicine; Visit Provider Emergency Medicine
DX: F19.19 Other psychoactive substance abuse with unspecified psychoactive substance-induced disorder (principal); F11.10 Opioid abuse, uncomplicated; F15.10 Other stimulant abuse, uncomplicated; F41.9 Anxiety disorder, unspecified; F17.210 Nicotine dependence, cigarettes, uncomplicated; F32.A Depression, unspecified
CPT/HCPCS: 51701; 51702; 70450; 80048; 80307; 80320; 82550; 84484; 84703; 85025; 93005; 96372; 99284; P9612; G0480; J3486

== ENCOUNTER 2023-11-28 10:56 | Emergency (ER) | payer MEDICAID, SELFPAY ==
[2023-11-28 10:58] VITALS: BP 118/74; PULSE 108; RESP 17; TEMP 37.7; O2SAT 99; BMI 18.8
--- NOTE | 2023-11-28 11:18 | EX.ED.SAOD ---
HPI History of Present Illness Chief Complaint: Substance Abuse Detail of Chief Complaint: Unable to get any history from the patient at this time. Informant: patient Onset/Context/Timing Onset: Today Current Severity: Mild Maximum Severity: Mild Narrative Narrative: 28-year-old female was at 180. She has a history of methamphetamine and IV drug abuse. Also anxiety and depression. Today 180 felt like she was not acting her baseline in center and thinking that she used drugs today. Patient is unable to give me any history at this time. She is awake. She is moving everything. She is not answering any questions. She is not following commands. Prior similar symptoms: Yes Recent Illness/Hospitalization: No PFSH PFSH Medical History Anxiety Depression IVDU (intravenous drug user) Nicotine use Opiate addiction Smoker Medical History unable to obtain Home Medications aripiprazole 5 mg tablet 5 mg PO DAILY MOOD 12/30/20 [History Last Taken 07/05/21] venlafaxine 75 mg capsule,extended release 24 hr 75 mg PO DAILY DEPRESSION 06/21/23 [History Last Taken Unknown] Allergy/AdvReac Type Severity Reaction Status Date / Time Penicillins AdvReac Swollen Verified 06/21/23 08:48 lymph glands promethazine [From Phenergan] AdvReac Other Verified 06/21/23 08:48 Family History Father Alcohol abuse Social History Smoking Status: Current every day smoker tobacco type: cigarettes quit status: not considering quitting alcohol intake: never substance use type: opiates and prescription drug ROS ROS ED ROS Narrative Unable to obtain due to the patient's mental status. Review of Systems ROS Unobtainable: due to mental status EXAM Physical Exam Narrative Exam Narrative: 28-year-old female vital signs stable afebrile. Pulse ox 9 9% on room air no signs hypoxia. H EENT exam appears round reactive light. No facial droop. No trauma to her face or scalp. Nontender. No hematoma. Moist mucous membranes. No bite cazares on the tongue. Neck nontender no lymphadenopathy. Lungs clear to auscultation bilaterally. Heart tachycardic rate 105 no murmur. Chest wall and ribs nontender. Abdomen soft nontender. Back nontender. She has a tattoo down her spine. Moving all 4 extremities. Nontender. No edema. No deformities. Track cazares on both forearms. No abscess. No cellulitis. Neurologically she will open her eyes. She is following very limited commands. She is not answering any questions. She does move all 4 extremities. Const Vital Signs: 11/28/23 10:58 11/28/23 11:56 11/28/23 12:53 Temperature 99.9 F H Temperature Source Oral Pulse Rate 108 H 100 Respiratory Rate 17 16 18 Blood Pressure 118/74 118/76 Blood Pressure Mean 88 90 Pulse Ox 99 98 Oxygen Delivery Method Room Air Room Air 11/28/23 14:50 11/28/23 16:11 Temperature Temperature Source Pulse Rate 108 H 100 Respiratory Rate 20 H 18 Blood Pressure 116/58 L 120/72 Blood Pressure Mean 77 88 Pulse Ox 98 98 Oxygen Delivery Method Room Air Room Air Positive well nourished and well developed; Negative for cachectic or contractures General Appearance ED: well developed and NAD; Negative for cachectic, contractures or pallor Nutritional Appearance: Negative for cachectic HEENT Reports moist mucous membranes atraumatic; Negative for trauma or tenderness Eyes PERRL and EOMs intact bilaterally General Eye ED: Negative for pale conjunctiva or scleral icterus Neck no lymphadenopathy, supple and no JVD Thyroid: Negative for tender Lymph Lymphatic: no lymphadenopathy noted; Negative for lymphadenopathy Chest Wall inspection of chest normal and palpation of chest normal Chest: Negative for other Resp normal respiratory effort and clear to auscultation bilaterally Effort and Inspection: Negative for retractions Auscultation: Negative for rales, rhonchi or wheezes Cardio regular rhythm, S1 normal heart sound, S2 normal heart sound and no murmurs; Negative for regular rate Rate: tachycardic Rhythm: Negative for abnormal rhythm GI soft to palpation, non-tender, non-distended and no masses Inspection: Negative for abdominal distention Palpation: Negative for tender, guarding or rigid Back/Spine no CVA tenderness General Back: Negative for CVA tenderness Cervical Spine: Negative for cervical spine tenderness Thoracic Spine / Upper Back: Negative for thoracic spinal tenderness Lumbar Spine / Lower Back: Negative for lumbar spinal tenderness Coccyx: Negative for swelling Extremity General Extremety ED: Negative for edema or tenderness General Extremity: Negative for edema Neuro No oriented x3 Neuro Narrative: Will not answer any questions. Does not follow unless commands. Sensorium / Orientation: confused; Negative for oriented to person, oriented to place or oriented to time Speech: Negative for speech normal Gait (Neuro): Negative for normal gait Psych Psych Narrative: Decreased responsiveness so unable to obtain. Skin General Skin Exam: Negative for jaundice or pallor Lesions: no lesions Rashes: no rashes Trauma: Negative for abrasion or laceration MDM MDM MDM Narrative Medical decision making narrative: 28-year-old female history of drug abuse. Concern for use today. Screening labs being obtained. Repeat exam at 4:15 PM. Patient is been here over 5 hours. She is currently awake and alert. Acting normally. She does admit to shooting IV fentanyl earlier today. She has track cazares up and down both arms but none are acutely infected. There is no cellulitis or abscesses. Patient tells me she is homeless she is trying to get into the [place]. She denies any recent complaints or illnesses. No recent hospitalization. Patient comfortable being discharged home. History & Record Review Discussion w/independent historian: Patient Additional record(s) reviewed:: Prior outpatient record, Prior ED visit and Prior labs Lab Data Attestation: I reviewed the patient's lab results. Lab results narrative: CBC shows a white count of 14.4. H&H of 13 and 38. Platelets 233. Electrolytes show sodium 135. Potassium 3.2. Gap of 14. Normal BUN of 10 creatinine 0.6. Liver enzymes unremarkable. Alcohol level negative. Glucose was 70. Labs: Laboratory Results - last 24 hr 11/28/23 11/28/23 11:40 11:47 WBC 14.4 H RBC 4.24 Hgb 13.2 Hct 38.6 MCV 91.0 MCH 31.1 MCHC 34.2 RDW Std Deviation 41.5 RDW Coeff of Guero 12.7 Plt Count 233 MPV 10.6 Immature Gran % (Auto) 0.400 Neut % (Auto) 75.8 H Lymph % (Auto) 15.9 L [place] % (Auto) 6.0 Eos % (Auto) 1.3 Baso % (Auto) 0.6 Absolute Neuts (auto) 10.9 H Absolute Lymphs (auto) 2.29 Nucleated RBC % 0 Sodium 135 L Potassium 3.2 L Chloride 101 Carbon Dioxide 20.0 L Anion Gap 14 BUN 10 Creatinine 0.64 Estim Creat Clear Calc 124.38 Est GFR (MDRD) Af Amer 140 Est GFR (MDRD) Non-Af 116 BUN/Creatinine Ratio 15.6 Glucose 70 L Calcium 8.5 Total Bilirubin 1.10 H AST 42 H ALT 29 Alkaline Phosphatase 72 Total Protein 7.5 Albumin 3.8 Globulin 3.7 Albumin/Globulin Ratio 1.0 Ethyl Alcohol < 3.0 POC Glucose 76 Discharge Plan Triage Chief Complaint: Substance Abuse ED Provider: Norberto Smimons Dx/Rx/DC Orders Clinical Impression: Acute alteration in mental status, Fentanyl use disorder, mild, abuse, Homeless, History of drug abuse Instructions: ED Opiate Abuse Prescriptions: No Action aripiprazole 5 MG tablet 5 mg PO DAILY venlafaxine 75 mg capsule,extended release 24hr 75 mg PO DAILY Primary Care Provider: Care Physician,No Primary Referrals: Evangelist Teran MD [Non-Staff] - As Needed Care Physician,No Primary [Primary Care Provider] - Activity Restrictions/Additional Instructions: Consider drug detox. Follow-up with 180 Try to get 1 in the area homeless shelters. Disposition Disposition: Home, Self Care
[2023-11-28 11:52] LABS: Absolute Lymphocyte Count 2.29 X10^3/uL (0.83-4.51); Absolute Neutrophil Count 10.9 X10^3/uL (2.0-7.7); Basophil# 0.08 X10^3/uL; Basophil% 0.6 % (0-1); Eosinophil# 0.19 X10^3/uL; Eosinophils% 1.3 % (0-5); Hematocrit 38.6 % (37-47); Hemoglobin 13.2 g/dL (12.0-15.0); Lymphocyte # 2.29 X10^3/ul (0.83-4.51); Lymphocyte % 15.9 % (19-41); Mean Corp Hgb Conc 34.2 g/dL (32-36); Mean Corpuscular Hgb 31.1 pg (27.0-32.0); Mean Platelet Vol. 10.6 fl (6.2-12.0); Monocyte# 0.87 X10^3/uL; NRBC Flagged by Analyzer 0 % (0-5); Neutrophil % 75.8 % (47-70); Platelet Count 233 K/mm3 (150-450); RBC Distribution Width CV 12.7 % (11.6-14.6); RBC Distribution Width SD 41.5 fl (35.1-43.9); Red Blood Count 4.24 M/mm3 (4.2-5.4); White Blood Count 14.4 K/mm3 (4.4-11.0)
[2023-11-28 11:56] VITALS: RESP 16
[2023-11-28 12:03] LABS: Bedside Glucose 76 mg/dL (74-106)
[2023-11-28 12:11] LABS: AST(SGOT) 42 U/L (15-37); Alanine Aminotransfer ALT/SGPT 29 U/L (13-56); Albumin, Serum 3.8 g/dL (3.2-5.0); Alkaline Phosphatase 72 U/L (45-117); Anion Gap 14 (5-15); BUN 10 mg/dL (7-18); BUN/Creat Ratio 15.6 RATIO (10-20); Calcium,Total 8.5 mg/dL (8.5-10.1); Chloride 101 mmol/L (98-107); Creatinine, Serum 0.64 mg/dL (0.55-1.02); EST Glomerular Filtration Rate 116 mL/min (>60); Est Glom Filt Rate - Afr Amer 140 mL/min (>60); Estimated Creatinine Clearance 124.38 ml/min; Globulin 3.7 g/dL (2.2-4.2); Glucose 70 mg/dL (74-106); Potassium 3.2 mmol/L (3.5-5.1); Protein, Total 7.5 g/dL (6.4-8.2); Sodium Level 135 mmol/L (136-145)
[2023-11-28 12:20] LABS: Alcohol, Blood (Medical)-Serum < 3.0 mg/dL
[2023-11-28 12:53] VITALS: BP 118/76; PULSE 100; RESP 18; O2SAT 98
--- OUTSIDE RECORDS SUMMARY | 2023-11-28 13:04 | XMS RPT_ITS | CCD ---
Author Name Unknown Address [address] [place] [address] Organization [facility] Care Team Providers Care Catalyst Supervisor Name Role Phone Unavailable Primary Care Provider AXEL Cruz Referring Unavailable BRETT GANDHI Attending Unavailable ROCAEL DAWSON, DR COLÓN Primary Care Physician [phone] Dot Garcia Unavailable Unavailable Unavailable Primary Care Provider DR ELDON Benítez DO Primary Care Unavailable JULIA TILLEY DO Attending Unavailable TAMIKO ANG DO Admitting Unavailable TAMIKO ANG DO Attending Unavailable TAMIKO ANG DO Primary Care Unavailable Allergies Allergy Classification Reported Allergen(s) Allergy Type Date of Onset Reaction(s) Facility (4 sources) metroNIDAZOLE; Translations: [METRONIDAZOLE] Drug Allergy 0 Other: See Comments [facility] Work Phone: (2 sources) Penicillins; Translations: [PENICILLINS] Propensity to adverse reactions to drug (disorder) 2 Unknown [facility] Repository (2 sources) Promethazine; Translations: [PROMETHAZINE] Drug Allergy 2 Other: See Comments [facility] Repository (1 source) Penicillin Drug Allergy [facility] Repository Medications Current Medications Medication [...] Body height 180.3 cm JULIA TILLEY DO [facility] 10-10-2022 15:30-0500 Body temperature 98.24 [degF] JULIA TILLEY DO [facility] 10-10-2022 15:30-0500 Body weight 79.5 kg JULIA TILLEY DO [facility] 10-10-2022 15:30-0500 Diastolic Blood Pressure Non-Invasive 69 1 JULIA TILLEY DO [facility] 10-10-2022 15:30-0500 Heart rate 102 /min JULIA TILLEY DO [facility] 10-10-2022 15:30-0500 Respiratory rate 16 /min JULIA TILLEY DO [facility] 10-10-2022 15:30-0500 Systolic Blood Pressure Non-Invasive 113 1 JULIA TILLEY DO [facility] 10-10-2022 13:10-0500 Body temperature 98.01 [degF] Brett Gandhi MD Work Phone: [facility] 10-10-2022 13:10-0500 Body weight 79.38 kg Brett Gandhi MD Work Phone: [facility] 10-10-2022 13:10-0500 Diastolic blood pressure 58 mm[Hg] Brett Gandhi MD Work Phone: [facility] 10-10-2022 13:10-0500 Heart rate 94 /min Brett Gandhi MD Work Phone: [facility] 10-10-2022 13:10-0500 Respiratory rate 18 /min Brett Gandhi MD Work Phone: [facility] 10-10-2022 13:10-0500 SaO2% (BldA) [Mass fraction] 97 % Brett Gandhi MD Work Phone: [facility] 10-10-2022 13:10-0500 Systolic blood pressure 115 mm[Hg] Brett Gandhi MD Work Phone: [facility] 04-17-2022 15:33-0400 Body temperature 97 [degF] Quinn Becerra ROLLER STAINER.SOLE SCRAPER Work Phone: [facility] 04-17-2022 15:33-0400 Body weight 85.73 kg Quinn Becerra ROLLER STAINER.SOLE SCRAPER Work Phone: [facility] 04-17-2022 15:33-0400 Diastolic blood pressure 72 mm[Hg] Quinn Becerra ROLLER STAINER.SOLE SCRAPER Work Phone: [facility] 04-17-2022 15:33-0400 Heart rate 84 /min Quinn Quigleyrose ROLLER STAINER.SOLE SCRAPER Work Phone: [facility] 04-17-2022 15:33-0400 Respiratory rate 16 /min Quinn Quigleyrose ROLLER STAINER.SOLE SCRAPER Work Phone: [facility] 04-17-2022 15:33-0400 SaO2% (BldA) [Mass fraction] 99 % Quinn Quigleyrose ROLLER STAINER.SOLE SCRAPER Work Phone: [facility] 04-17-2022 15:33-0400 Systolic blood pressure 124 mm[Hg] Quinn Quigleyrose ROLLER STAINER.SOLE SCRAPER Work Phone: [facility] Encounters Encounter Date Encounter Type Care Provider Facility Start: 03-05-2023 End: 03-06-2023 Emergency department patient visit TAMIKO DAWSON [facility] Start: 10-10-2022 End: 10-10-2022 Emergency department patient visit DR ELDON COTE DO Facility:B Start: 10-10-2022 End: 10-10-2022 Emergency department patient visit JULIA TILLEY DO [facility] Start: 10-10-2022 End: 10-10-2022 ambulatory BRETT GANDHI Facility:[id number] Start: 10-10-2022 End: 10-10-2022 Patient encounter procedure Brett Gandhi MD Work Phone: [facility] [place] Procedures Date Procedure Procedure Detail Performing Clinician Start: 03-06-2023 Urinalysis TAMIKO BERTRAND Plan of Treatment Date Care Activity Detail Author Start: 10-26-2025 Urine microalbumin profile DTAP,TDAP,TD (7 - Td or Tdap) [facility] Start: 09-14-2024 PAP TESTING PAP TESTING [facility] Start: 10-09-2022 DEPRESSION ASSESSMENT DEPRESSION ASSESSMENT [facility] Start: 06-09-2022 Influenza vaccination INFLUENZA (#1) [facility] Start: 2011 HEPATITIS C SCREENING HEPATITIS C SCREENING [facility] Start: 2005 Adult depression screening assessment DEPRESSION SCREENING [facility] Start: 1999 PNEUMOCOCCAL (1 - PCV) PNEUMOCOCCAL (1 - PCV) [facility] ic Start: 05-15-1994 COVID-19 VACCINE (#1) COVID-19 VACCINE (#1) [facility] Bacteria identified in Urine by Culture URINE CULTURE Microbiology Routine Urinary frequency 04/17/2022 3:37 PM EDT [facility] Work Phone: Immunizations Immunization Date Immunization Notes Care Provider Fa robert 09-04-2021 influenza, injectabl e, quadrivalent, preservative free Quinn Becerra ROLLER STAINER.[facility] Work Phone: [facility] Work Phone: 08-13-2020 influenza, injectabl e, quadrivalent, preservative free; Translations: [Fluarix PF Quadrivalent ] Quinn Becerra ROLLER STAINER.[facility] Work Phone: [facility] Work Phone: 09-26-2017 RHO(D) immune globulin- IV or IM Quinn Becerra ROLLER STAINER.[facility] Work Phone: [facility] Work Phone: 07-08-2017 influenza, seasonal, injectable, preservative free Quinn Becerra ROLLER STAINER.[facility] Work Phone: [facility] Work Phone: 07-06-2017 influenza, injectabl e, quadrivalent, contains preservative Quinn Becerra ROLLER STAINER.[facility] Work Phone: [facility] 10-26-2015 tetanus toxoid, reduced diphtheria toxoid, and acellular pertussis vaccine, adsorbed Quinnirasema Becerra ROLLER STAINER.[facility] Work Phone: [facility] Work Phone: 05-11-1999 diphtheria, tetanus toxoids and pertussis vaccine Quinn Becerra ROLLER STAINER.[facility] Work Phone: [facility] Work Phone: 05-11-1999 measles, mumps and rubella virus vaccine Quinn Becerra ROLLER STAINER.[facility] Work Phone: [facility] Work Phone: 06-29-1995 diphtheria, tetanus toxoids and pertussis vaccine Quinn Pendlebury ROLLER STAINER.[facility] Work Phone: [facility] Work Phone: 06-29-1995 measles, mumps and rubella virus vaccine Quinn Pendlebury ROLLER STAINER.[facility] Work Phone: [facility] Work Phone: 06-29-1995 trivalent poliovirus vaccine, live, oral Quinn Pendlebury ROLLER STAINER.[facility] Work Phone: [facility] Work Phone: 08-15-1994 hepatitis B vaccine, pediatric or pediatric/adolescent dosage Quinn Pendlebury ROLLER STAINER.[facility] Work Phone: [facility] Work Phone: 05-17-1994 diphtheria, tetanus toxoids and pertussis vaccine Quinn Pendlebury ROLLER STAINER.[facility] Work Phone: [facility] Work Phone: 05-17-1994 haemophilus influenz ae type b vaccine, conjugate unspecified formulation Quinn Pendlebury ROLLER STAINER.[facility] Work Phone: [facility] Work Phone: 05-17-1994 trivalent poliovirus vaccine, live, oral Quinn Pendlebury ROLLER STAINER.[facility] Work Phone: [facility] Work Phone: 03-17-1994 diphtheria, tetanus toxoids and pertussis vaccine Quinn Pendlebury ROLLER STAINER.[facility] Work Phone: [facility] Work Phone: 03-17-1994 haemophilus influenz ae type b vaccine, conjugate unspecified formulation Quinn Pendlebury ROLLER STAINER.[facility] Work Phone: [facility] Work Phone: 03-17-1994 trivalent poliovirus vaccine, live, oral Quinn Pendlebury ROLLER STAINER.[facility] Work Phone: [facility] Work Phone: 01-11-1994 diphtheria, tetanus toxoids and pertussis vaccine Quinnirasema Becerra ROLLER STAINER.SOLE SCRAPER Work Phone: [facility] Work Phone: 01-11-1994 haemophilus influenz ae type b vaccine, conjugate unspecified formulation Quinn Becerra ROLLER STAINER.SOLE SCRAPER Work Phone: [facility] Work Phone: 01-11-1994 hepatitis B vaccine, pediatric or pediatric/adolescent dosage Quinn Becerra ROLLER STAINER.SOLE SCRAPER Work Phone: [facility] Work Phone: 01-11-1994 trivalent poliovirus vaccine, live, oral Quinn Becerra ROLLER STAINER.SOLE SCRAPER Work Phone: [facility] Work Phone: 1993 hepatitis B vaccine, pediatric or pediatric/adolescent dosage Quinn Becerra ROLLER STAINER.SOLE SCRAPER Work Phone: [facility] Work Phone: Payers Date Payer Category Payer Medicaid [employer] [id number] 2003-Present [phone] [address] [place] [address] Medicaid [id number] 2003 Medicaid [id number] 2003 Medicaid [employer] [employer] [employer] [id number] 2003-Present [phone] [address] [place] [address] Medicaid [id number] 1993 Unknown [id number] 1993 Unknown [id number] Social History Date Type Detail Facility Start: 07-15-2019 End: 10-10-2022 Tobacco smoking status NHIS Smokes tobacco daily [facility] Work Phone: History of tobacco use Cigarette Smoker C [facility] Work Phone: Start: 07-15-2019 End: 10-10-2022 Cigarettes smoked current (pack per day) - Reported 0.5 [facility] Start: 07-15-2019 End: 10-10-2022 Tobacco use and exposure Smokeless tobacco non-user [facility] Work Phone: Start: 04-17-2022 End: 10-10-2022 Alcohol intake Current non-drinker of alcohol (finding) [facility] Start: 1995 [facility] Start: 04-07-2022 End: 04-17-2022 Exposure to SARS-CoV-2 (event) Not sure [facility] Work Phone: Tobacco Nicotine Use: Va ping Product in Last 90 Days. [facility] Tobacco smoking status Occasiona l tobacco smoker (finding) [facility] Functional Status Date Assessment Result Facility 10-10-2022 Functional Status Standard Safet y ID band on, Call device within reach, Bed in low position, Wheels locked, Upper/Half-Length side-rails up, Bedside Cart Locked, Safety level maintained [facility] Mental Status Date Assessment Result Facility 10-10-2022 Mental Status Orientation Oriented x 4 [facility] Clinical Notes 11-23-2017 to 03-10-2023 Brett Gandhi [...] only. Refer to previous culture for susceptibility. [id number] PRELIMINARY REPORTS Preliminary Report [] Verified Date/Time/Personnel: 03/06/2023 23:59 EDT Culture has been received in lab and is no growth to date. Routine cultures are held for 5 days. STAINS GSAER [] Verified Date/Time/Personnel: 03/09/2023 04:30 EDT Gram Negative Rods Performing Locations *1: This test was performed at: [facility], [address] [place] [address], [facility] , [facility] ([place]) 03-10-2023 Note . MICRO - Microbiology PROCEDURE: [...] Locations *1: This test was performed at: [address], [facility] , [facility] ([place]) 10-16-2022 Note . MICRO - Microbiology PROCEDURE: [...] Locations *1: This test was performed at: [address], [address] , [facility] ([place]) 10-10-2022 Hospital Discharge instructions Patient Education 10/10/2022 [...] to manage those feelings. Community reinforcement approach (BUSINESS JOB TITLES). This therapy uses vouchers help you follow [...] encourage you to drink or use drugs. [place] support groups. These groups are run voluntarily by non-health urgent care physician assistant people. Their purpose is to support each [...] behavioral change through participation in 12-step programs. 9343-[address] [employer] [place] [address]. All rights reserved. This information is not [...] provider can help you. So can a staff nurse midwife, grain mill worker, or rabbi who is trained in substance abuse counseling. Friends and family may also help once you are working with experts. Together you can make changes needed for success. This can help you to have a positive and rewarding life. [phone] [employer]. [address] [place] [address]. All rights reserved. This information is not intended as a substitute for professional medical care. Always follow your healthcare professional's instructions. Follow Up Care 10/10/2022 15:20:22 With:[facility] Address: [address] [place] [address] [phone] Business (1) When:2-4 days With:ELDON COTE Address: [address] [facility] [place] [address]- [phone] Business (1) When:2-4 days With:Gunjan Sullivan Pt. Refferral [phone] Address:Unknown When:2-4 days [facility] 10-10-2022 Emergency department Discharge summary Discharge Instructions [...] Schedule the Following Appointments Follow Up with [facility] When Within 2-4 days Where: [address] [place] [address]- [phone] Business (1) Follow Up with ELDON COTE When Within 2-4 days Where: [address] [facility] [place] [address]- [phone] Business (1) Follow Up with Call [facility] New Pt. Refferral [phone] When Within 2-4 days Allergies NKA Medications [...] to manage those feelings. Community reinforcement approach (BUSINESS JOB TITLES). This therapy uses vouchers help you follow [...] encourage you to drink or use drugs. [place] support groups. These groups are run voluntarily by non-health urgent care physician assistant people. Their purpose is to support each [...] behavioral change through participation in 12-step programs. 0386-[address] [employer] [place] [address]. All rights reserved. This information is not [...] provider can help you. So can a staff nurse midwife, grain mill worker, or rabbi who is trained in substance abuse counseling. Friends and family may also help once you are working with experts. Together you can make changes needed for success. This can help you to have a positive and rewarding life. 4572-[address] [employer] [place] [address]. All rights reserved. This information is not intended as a substitute for professional medical care. Always follow your healthcare professional's instructions. Additional Information VACCINATE! IT SAVES LIVES! Members of the community who have not yet received the COVID-19 vaccine and would like to receive it can visit one of [facility] vaccine clinics. There are many vaccine clinic locations within the [facility]. For locations and available times, please visit [email or web address]. It is important to note that some COVID mobile vaccine clinics are held outdoors and may be canceled in rainy or stormy conditions. To learn more about pediatric vaccinations (ages 5-11), we invite you to visit the [facility] webpage. [email or web address]/p [email or web address]-[email or web address]-Freq cjtqrv-[email or web address]-[email or web address].html To learn more about the COVID-19 vaccine, we invite you to visit the [facility] website for a list of frequently asked questions. [email or web address]-[email or web address]/[email or web address]-E requently_[email or web address]-Questions.pdf [facility] Patient Portal Access Instructions: Stay connected with your healthcare team and access your personal medical information anytime with the [facility] Patient Portal. If you would like a full copy of your medical records please contact the [facility] Medical Records Department Monday through Monday between 8a.m. and 4:30p.m. Please follow the directions below to access the portal: 1.Access the email account you provided upon [facility] the [facility].2.Look for an invitation email from [facility].3.Open the email and access the invitation link: Accept Invitation to [facility]4.Fill in the required barragan to create your account. Sign into [email or web address] with your username and password that you [...] you will allow to register on the [facility] Patient Portal for access to your information. You can also access the [facility] Patient Portal on the [employer] triny. Simply click on Health Records under Health Data and then click on the [employer] logo. HOW TO SAFELY DISPOSE OF PRESCRIPTION [...] Call your local pharmacy or go to http://bit.[employer]/8J5Rl1r to find one close to you.3.Make use of household items: Use cat litter or old coffee grounds to dispose medications if other options are not available. Mix your drugs with these household products, seal them in an airtight container and throw it into the garbage. Call [facility]: [phone] to be sure your drugs can be [...] aware that I should contact my doctor. Patient/Snow Technician Signature: Date/Time: Relationship to Patient: Witness Name/Signature: Date/Time: [facility] 10-10-2022 Note HNO ID: [id number] Author: Brett Gandhi MD Service: ? Author [...] and treatment patient choose to go to [facility] in [place] and patient go to ER in private car Son Kayla Gandhi MD [facility] 10-10-2022 Evaluation + Plan note Diagnostic Tests PendingCulture Wound Deep Aerobe/Anaerobe w Gram Stain 10/10/22 [facility] 10-10-2022 History of Present illness Narrative Yulia [...] and treatment patient choose to go to [facility] in [place] and patient go to ER in private car Brett Gandhi MD documented in this encounter [facility] 04-17-2022 Note HNO ID: [id number] Author: Quinn Becerra APRN.SOLE SCRAPER Service: ? Author Type: Nurse Practitioner Type: Progress Notes Filed: 04/17/2022 3:48 PM Note Text: Subjective HPI A nontoxic appearing female presents to urgent care with chief complaint of possible UTI. Duration of symptoms 3 days. Associated symptoms dysuria, frequency, and urgency. Patient has history of UTIs in past with similar signs and symptoms. Patient denies the use of any lxnf-tzy-phgmxlf medications or home remedies for symptom management. [...] with primary ca (more content not included)... [facility] 04-17-2022 Instructions Quinn Becerra APRN.ODELL - [...] or fluids down. documented in this encounter [facility] 04-17-2022 History of Present illness Narrative Subjective HPI A nontoxic appearing female presents to urgent care with chief complaint of possible UTI. Duration of symptoms 3 days. Associated symptoms dysuria, frequency, and urgency. Patient has history of UTIs in past with similar signs and symptoms. Patient denies the use of any zgho-bqf-pgvayif medications or home remedies for symptom management. [...] of care. This note was generated using [employer] software. It may contain errors in wording, punctuation, or spelling. Quinn Becerra APRN.ODELL documented in this encounter [facility] documented as of this encounter (statuses as of 04/17/2022) [facility] History of Past illness Narrative* Problem Noted [...] of this encounter (statuses as of 10/13/2022) [facility] Urinary frequency- Primary [facility] Cellulitis of left wrist- Primary [facility] N[facility]ative No data available for this section [facility] Summary Purpose Family History No Family History Records FoundNo Family History Records FoundNo Family History Records FoundNo Family History Records FoundNo Family History Records Found Advance Directives No Advanced Directives Records FoundNo Advanced Directives Records FoundNo Advanced Directives Records FoundNo Advanced Directives Records FoundNo Advanced Directives Records Found Hospital Course Note [facility] [address] [place] [address] NAME YULIA BRADY [facility] [id number] 1995 ADMIT 08/13/2018 DISCH 08/17/2018 DISCHARGE SUMMARY [...] years when she was first admitted to [facility] for depression and prescribed Lexapro. Since [...] DATE CREATED AUTHOR AUTHOR'S ORGANIZ ATION 10/10/2022 [facility]ter DATE CREATED AUTHOR AUTHOR'S ORGANIZ ATION 03/20/2023 [facility] ([place]) DATE CREATED AUTHOR AUTHOR'S ORGANIZ ATION 03/20/2023 [facility] DATE CREATED AUTHOR AUTHOR'S ORGANIZ ATION 03/20/2023 [facility] Source Comments (unrecognize d section and content) In the event this informatio n is protected by the Federal Confidentiality of Alcohol and Drug Abuse Patient Records regulations: The Federal rules restrict any use of the information to criminally investigate or prosecute any alcohol or drug abuse patient.[facility] the event this information is protected by the Federal Confidentiality of Alcohol and Drug Abuse Patient Records regulations: The Federal rules restrict any use of the information to criminally investigate or prosecute any alcohol or drug abuse patient.[facility] Reason for Visit (unrecogniz ed section and content) Reason Comments Derm Problem Left wrist used IV d rugs area for 3 days now she states she put meth in site Care Team (unrecognized sect ion and content) Care Team Personnel Name: ELDON COTE DO Position: P4 Physician - Primary Care Member Role: Primary Care Physician Address: Address: [address] [place] [id number] Name: Dot Garcia Position: P3 Scheduling - Gasket Winder Advanced Member Role: Other Care Team Related [...] BE BASED ON THE PRIMARY CLINICAL RECORDS. [employer] [facility]. provides no warranty or guarantee of the accuracy or completeness of information in this document.
[2023-11-28 14:50] VITALS: BP 116/58; PULSE 108; RESP 20; O2SAT 98
[2023-11-28 16:11] VITALS: BP 120/72; PULSE 100; RESP 18; O2SAT 98
[2023-11-28 16:27] VITALS: BP 112/64; PULSE 94; RESP 18; TEMP 36.3; O2SAT 98
--- NOTE | 2023-11-28 16:28 | ED.RN ---
Pt did not have IV on discharge
== END 2023-11-28 16:36 | disposition home or self-care (01) ==
PROVIDERS: Emergency Provider Emergency Medicine; Visit Provider Emergency Medicine
DX: F11.10 Opioid abuse, uncomplicated (principal); R41.82 Altered mental status, unspecified; F32.A Depression, unspecified; F41.9 Anxiety disorder, unspecified; F17.210 Nicotine dependence, cigarettes, uncomplicated; Z59.00 Homelessness unspecified; Z79.899 Other long term (current) drug therapy
CPT/HCPCS: 36415; 80053; 80320; 82962; 85025; 99283; G0480